=== PATIENT | male | born 1965 | race Caucasian/White ===

== ENCOUNTER 2016-04-30 15:44 | Inpatient (IN) | payer OTHER ==
[2016-04-30 17:09] VITALS: BMI 35.4
--- NOTE | 2016-04-30 20:01 | HP ---
COWS - Scale Resting Pulse: 2= NM 101-120 Sweatin= Chills/Flushing Restless Observation: 3= Extraneous Movement Pupil Size: 1= Pupils >than Normal Bone or Joint Aches: 2= Severe Diffuse Aches Runny Nose/ Eye Tearin= Nasal Congestion GI Upset > 30mins: 1= Stomach Cramp Tremor Observation: 2= Slight Tremor Visible Yawning Observation: 0= None Anxiety or Irritability: 2=Irritable/Anxious Goose Flesh Skin: 0=Smooth Skin COWS Score: 15 Admission ROS S - HPI Chief Complaint: withdrawal sx Allergies/Adverse Reactions: Allergies Allergy/AdvReac Type Severity Reaction Status Date / Time No Known Allergies Allergy Verified 04/30/16 19:06 History of Present Illness: 51 years old male with long history of opiate dependence, has chronic back pain , denies mental illness is admitted to detox Exam Limitations: No Limitations - Ebola screening Have you traveled outside of the country in the last 21 days: No Have you had contact with anyone from an Ebola affected area: No Have you been sick,other than usual withdrawal symptoms: No Do you have a fever: No - Review of Systems Constitutional: Chills, Changes in sleep, Weight Stable EENT: reports: Other (eye glasses) Respiratory: reports: No Symptoms reported Cardiac: reports: No Symptoms Reported GI: reports: Diarrhea, Nausea, Poor Fluid Intake, Indigestion, Abdominal cramping : reports: No Symptoms Reported Musculoskeletal: reports: Back Pain, Joint Pain, Muscle Pain Integumentary: reports: No Symptoms Reported Neuro: reports: Tremors Endocrine: reports: No Symptoms Reported Hematology: reports: No Symptoms Reported Psychiatric: reports: Judgement Intact, Mood/Affect Appropiate, Orientated x3 Other Systems: Reviewed and Negative Patient History - Patient Medical History Hx Anemia: No Hx Asthma: No Hx Chronic Obstructive Pulmonary Disease (COPD): No Hx Cancer: No Hx Cardiac Disorders: No Hx Congestive Heart Failure: No Hx Hypertension: No Hx Hypercholesterolemia: No Hx Pacemaker: No HX Cerebrovascular Accident: No Hx Seizures: No Hx Dementia: No Hx Diabetes: No Hx Gastrointestinal Disorders: No Hx Liver Disease: No Hx Genitourinary Disorders: No Hx Sexually Transmitted Disorders: No Hx Renal Disease (ESRD): No Hx Thyroid Disease: No Hx Human Immunodeficiency Virus (HIV): No Hx Hepatitis C: No Hx Depression: No Hx Suicide Attempt: No Hx Bipolar Disorder: No Hx Schizophrenia: No - Patient Surgical History Past Surgical History: No Hx Neurologic Surgery: No Hx Cataract Extraction: No Hx Cardiac Surgery: No Hx Lung Surgery: No Hx Breast Surgery: No Hx Breast Biopsy: No Hx Abdominal Surgery: No Hx Appendectomy: No Hx Cholecystectomy: No Hx Genitourinary Surgery: No Hx Orthopedic Surgery: No - PPD History Previous Implant?: Yes Documented Results: Negative w/o proof Implanted On Prior [facility] Admission?: No PPD to be Administered?: Yes - Smoking Cessation Smoking history: Never smoked Aproximately how many cigarettes per day: 0 Cigars Per Day: 0 Hx Chewing Tobacco Use: No Initiated information on smoking cessation: No - Substance & Tx. History Hx Alcohol Use: No Hx Substance Use: Yes Substance Use Type: Heroin, Opiates Hx Substance Use Treatment: Yes - Substances Abused Heroin Route: Inhalation Frequency: Daily Amount used: 20 Age of first use: 17 Date of Last Use: 04/30/16 Alprazolam (Xanax) Route: Oral Frequency: 1-3 times last 30 days Amount used: 2 mg Age of first use: 50 Date of Last Use: 04/29/16 Family Disease History - Family Disease History Family Disease History: Diabetes: Brother, Heart Disease: Brother, [place]: Father ( lymphoma/), Mother (breast/) Admission Physical Exam S - Vital Signs Vital Signs: Vital Signs - 24 hr 04/30/16 17:07 Temperature 95.3 F L Pulse Rate 102 H Respiratory 20 Rate Blood Pressure 152/92 - Physical General Appearance: Yes: Appropriately Dressed, Mild Distress, Moderate Distress , Obese, Tremorous, Irritable, Sweating, Anxious HEENTM: Yes: Hearing grossly Normal, Normal ENT Inspection, Normocephalic, Normal Voice Respiratory: Yes: Chest Non-Tender, Lungs Clear, Normal Breath Sounds, No Respiratory Distress, No Accessory Muscle Use Neck: Yes: Supple, Trachea in good position Breast: Yes: Breasts Symetrical Cardiology: Yes: Regular Rhythm, Regular Rate, S1, S2 Abdominal: Yes: Non Tender, Soft Genitourinary: Yes: Within Normal Limits Back: Yes: Normal Inspection Musculoskeletal: Yes: full range of Motion, Gait Steady, Back pain, Muscle Pain (left legs) Extremities: Yes: Normal Range of Motion, Non-Tender, Tremors 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: Yes: Fully Oriented, Alert, Motor Strength 5/5, Normal Mood/Affect , Normal Response Integumentary: Yes: Warm Lymphatic: Yes: Within Normal Limits - Diagnostic (1) Opioid dependence with withdrawal Current Visit: Yes Status: Acute (2) Chronic back pain Current Visit: Yes Status: Chronic Qualifiers: Back pain location: low back pain Back pain laterality: left Sciatica presence: with sciatica Sciatica laterality: sciatica of left side Qualified Code(s): M54.42 - Lumbago with sciatica, left side; G89.29 - Other chronic pain (3) GERD (gastroesophageal reflux disease) Current Visit: Yes Status: Acute Qualifiers: Esophagitis presence: without esophagitis Qualified Code(s): K21.9 - Gastro-esophageal reflux disease without esophagitis Cleared for Admission S - Detox or Rehab [facility] Level of Care: Medically Managed Detox Regimen/Protocol: Methadone [facility] Breath Alcohol Content Breath Alcohol Content: 0 Urine Drug Screen - Results Drug Screen Negative: No Urine Drug Screen Results: OPI-Opiates, BZO-Benzodiazepines, MTD-Methadone, TCA- Tricyclic Antidepress, OXY-Oxycodone
[2016-04-30] MEDS ORDERED: METHADONE HCL 10 MG TABLET (FOR DETOX USE ONLY) PO ONE ×2 (20:09→23:00)
[2016-04-30] MEDS ORDERED: MAGNESIUM CITRATE 300 ML BOTTLE PO PRN (20:09)
[2016-04-30] MEDS ORDERED: MENTHOL/PHENOL 1 EACH UD MM PRN (20:09)
[2016-04-30] MEDS ORDERED: MAGNESIUM HYDROX 2400MG/30ML ORAL SUSPENSION 30 ML CUP PO PRN (20:09)
[2016-04-30] MEDS ORDERED: MAG HYDROX/AL HYDROX/SIMETH 30 ML UNIT-DOSE CUP PO PRN (20:09)
[2016-04-30] MEDS ORDERED: LOPERAMIDE HCL 2 MG CAPSULE PO PRN (20:09)
[2016-04-30] MEDS ORDERED: guaiFENesin/D-METHORPHAN HB 10 ML UNIT-DOSE CUPS PO PRN (20:09)
[2016-04-30] MEDS ORDERED: ACETAMINOPHEN 325 MG TABLET (FP) PO PRN (20:09)
[2016-04-30] MEDS ORDERED: cloNIDine HCL 0.1 MG TABLET PO PRN (20:16)
[2016-04-30] MEDS: diazePAM 5 MG TABLET PO PRN (21:03)
[2016-04-30] MEDS: RANITIDINE HCL 150 MG TABLET (FP) PO SCH (22:16)
[2016-04-30] MEDS: GABAPENTIN 400 MG CAPSULE (FP) PO SCH (22:16)
[2016-04-30] MEDS: diphenhydrAMINE HCL 50 MG CAPSULE PO PRN (22:16)
[2016-04-30] MEDS: THIAMINE HCL 100 MG TABLET (FP) PO SCH (22:16)
[2016-04-30 22:31] LABS: URINE APPEARANCE CLEAR; URINE BILIRUBIN NEGATIVE (NEGATIVE); URINE COLOR DKYELLOW; URINE GLUCOSE (UA) NEGATIVE (NEGATIVE); URINE KETONE NEGATIVE (NEGATIVE); URINE LEUK ESTERASE NEGATIVE (NEGATIVE); URINE NITRITE NEGATIVE (NEGATIVE); URINE PROTEIN NEGATIVE (NEGATIVE); URINE UROBILINOGEN NEGATIVE E.U./dl (0.2-1.0)
[2016-04-30 22:32] LABS: URINE BLOOD 1+ (NEGATIVE)
[2016-04-30 22:36] LABS: URINE HYALINE CAST 3 /lpf; URINE MUCUS FEW; URINE RBC 22 /hpf (0-3); URINE WBC 5 /hpf (3-5)
[2016-05-01] MEDS: diphenhydrAMINE HCL 50 MG CAPSULE PO PRN (00:49)
[2016-05-01] MEDS: diazePAM 5 MG TABLET PO PRN ×5 (01:23→22:28)
[2016-05-01] MEDS: CYCLOBENZAPRINE HCL 10 MG TABLET (FP) PO PRN (01:23)
[2016-05-01] MEDS: GABAPENTIN 400 MG CAPSULE (FP) PO SCH ×3 (05:12→22:26)
[2016-05-01] MEDS ORDERED: METHADONE HCL 10 MG TABLET (FOR DETOX USE ONLY) PO ONE (10:00)
[2016-05-01] MEDS: PRENATAL VITAMINS W/ FOLIC ACID TABLET (FP) PO SCH (10:13)
[2016-05-01] MEDS: RANITIDINE HCL 150 MG TABLET (FP) PO SCH ×2 (10:13→22:26)
[2016-05-01 10:31] LABS: MCH 29.4 pg (25.7-33.7); MCHC 33.8 g/dl (32.0-35.9); MEAN CELL VOLUME 86.9 fl (80-96); MEAN PLT VOLUME 8.4 fl (7.5-11.1); PLATELET COUNT 262 K/MM3 (134-434); RDW 14.2 % (11.9-15.9); WHITE BLOOD COUNT 10.7 K/mm3 (4.0-10.0)
[2016-05-01 10:38] LABS: ALBUMIN 3.5 g/dl (3.4-5.0); ANION GAP 9 (8-16); BILIRUBIN,TOTAL 0.4 mg/dL (0.2-1.0); CALCIUM 8.6 mg/dL (8.5-10.1); CO2 28 mmol/L (21-32); CREATININE 0.9 mg/dL (0.7-1.3); GLUCOSE,RANDOM 74 mg/dL (74-106); SGOT/AST 13 U/L (15-37); SGPT/ALT 20 U/L (12-78); TOT PROT 6.7 g/dl (6.4-8.2)
[2016-05-01 10:39] LABS: ALK PHOS 84 U/L (45-117)
[2016-05-01] MEDS: P-EPHED 60MG/TRIPROLIDI 2.5MG TABLET PO PRN ×2 (10:42→22:41)
--- NOTE | 2016-05-01 13:23 | EKG ---
Test Reason : Blood Pressure : / mmHG Vent. Rate : 076 BPM Atrial Rate : 076 BPM P-R Int : 190 ms QRS Dur : 110 ms QT Int : 388 ms P-R-T Axes : 052 025 046 degrees QTc Int : 436 ms NORMAL SINUS RHYTHM POSSIBLE LEFT ATRIAL ENLARGEMENT BORDERLINE ECG NO PREVIOUS ECGS AVAILABLE Confirmed by MARYAN TAYLOR MD ([id number]) on 05/01/2016 1:23:11 PM Referred By: Confirmed By:MARYAN TAYLOR MD
--- NOTE | 2016-05-01 14:12 | PN ---
BHS COWS - Scale Resting Pulse: 0= MS 80 or Below Sweatin= Chills/Flushing Restless Observation: 1= Difficult to Sit Still Pupil Size: 0= Normal to Room Light Bone or Joint Aches: 2= Severe Diffuse Aches Runny Nose/ Eye Tearin= Runny Nose/Eyes GI Upset > 30mins: 2= Nausea/Diarrhea Tremor Observation of Outstretched Hands: 2= Slight Tremor Visible Yawning Observation: 1= 1-2x During Session Anxiety or Irritability: 2=Irritable/Anxious Goose Flesh Skin: 0=Smooth Skin COWS Score: 13 BHS Progress Note (SOAP) Subjective: Nausea, Interrupted sleep, Sweating, Tremors. Objective: PT. A & O X 3; OBSERVED AMBULATING ON UNIT. 05/01/16 14:10 Vital Signs Temperature 97 F L 05/01/16 11:01 Pulse Rate 79 05/01/16 11:01 Respiratory Rate 20 05/01/16 11:01 Blood Pressure 115/73 05/01/16 11:01 O2 Sat by Pulse Oximetry (%) Laboratory Last Values WBC 10.7 K/mm3 (4.0-10.0) H 05/01/16 07:15 RBC 4.89 M/mm3 (4.00-5.60) 05/01/16 07:15 Hgb 14.4 GM/dL (11.7-16.9) 05/01/16 07:15 Hct 42.5 % (35.4-49) 05/01/16 07:15 MCV 86.9 fl (80-96) 05/01/16 07:15 MCHC 33.8 g/dl (32.0-35.9) 05/01/16 07:15 RDW 14.2 % (11.9-15.9) 05/01/16 07:15 Plt Count 262 K/MM3 (134-434) 05/01/16 07:15 MPV 8.4 fl (7.5-11.1) 05/01/16 07:15 Sodium 140 mmol/L (136-145) 05/01/16 07:15 Potassium 4.0 mmol/L (3.5-5.1) 05/01/16 07:15 Chloride 103 mmol/L (98-107) 05/01/16 07:15 Carbon Dioxide 28 mmol/L (21-32) 05/01/16 07:15 Anion Gap 9 (8-16) 05/01/16 07:15 BUN 21 mg/dL (7-18) H 05/01/16 07:15 Creatinine 0.9 mg/dL (0.7-1.3) 05/01/16 07:15 Creat Clearance w eGFR > 60 (>60) 05/01/16 07:15 Random Glucose 74 mg/dL (74-106) 05/01/16 07:15 Calcium 8.6 mg/dL (8.5-10.1) 05/01/16 07:15 Total Bilirubin 0.4 mg/dL (0.2-1.0) 05/01/16 07:15 AST 13 U/L (15-37) L 05/01/16 07:15 ALT 20 U/L (12-78) 05/01/16 07:15 Alkaline Phosphatase 84 U/L (45-117) 05/01/16 07:15 Total Protein 6.7 g/dl (6.4-8.2) 05/01/16 07:15 Albumin 3.5 g/dl (3.4-5.0) 05/01/16 07:15 Urine Color Dkyellow 04/30/16 22:00 Urine Appearance Clear 04/30/16 22:00 Urine pH 5.0 (5.0-8.0) 04/30/16 22:00 Ur Specific [place] 1.026 (1.001-1.035) 04/30/16 22:00 Urine Protein Negative (NEGATIVE) 04/30/16 22:00 Urine Glucose (UA) Negative (NEGATIVE) 04/30/16 22:00 Urine Ketones Negative (NEGATIVE) 04/30/16 22:00 Urine Blood 1+ (NEGATIVE) H 04/30/16 22:00 Urine Nitrite Negative (NEGATIVE) 04/30/16 22:00 Urine Bilirubin Negative (NEGATIVE) 04/30/16 22:00 Urine Urobilinogen Negative E.U./dl (0.2-1.0) 04/30/16 22:00 Ur Leukocyte Esterase Negative (NEGATIVE) 04/30/16 22:00 Urine RBC 22 /hpf (0-3) 04/30/16 22:00 Urine WBC 5 /hpf (3-5) 04/30/16 22:00 Hyaline Casts 3 /lpf 04/30/16 22:00 Urine Mucus Few 04/30/16 22:00 RPR Titer Nonreactive (NONREACTIVE) 05/01/16 07:15 LABS NOTED. Assessment: 05/01/16 14:11 WITHDRAWAL SYMPTOMS. Plan: CONTINUE DETOX. ADVISED PATIENT TO FOLLOW-UP WITH [facility] / REHAB MEDICAL PROIVDER AFTER DISCHARGE FROM DETOX FOR GENERAL MEDICAL ASSESSMENT AND FOR ABNORMAL LAB VALUES.
--- NOTE | 2016-05-01 15:05 | CONSULT ---
[facility] Psychiatric Consult - Data Date of interview: 05/01/16 Admission source: [facility] Identifying data: [place] [facility] [place] 51 y/o male seeking detox treatment on for opioid and benzodiazepine (xanax) dependence.Patient declines to cooperate for the psychiatric interview. Substance Abuse History: Urine Drug Screen Results: OPI-Opiates, BZO- Benzodiazepines, MTD-Methadone, TCA-Tricyclic Antidepressant, OXY- Oxycodone.Noted. - Smoking Cessation. Smoking history: Never smoked. Aproximately how many cigarettes per day: 0. Cigars Per Day: 0. Hx Chewing Tobacco Use: No. Initiated information on smoking cessation: No. - Substance & Tx. History. Hx Alcohol Use: No. Hx Substance Use: Yes. Substance Use Type : Heroin, Opiates. Hx Substance Use Treatment: Yes. - Substances Abused. Heroin. Route: Inhalation. Frequency: Daily. Amount used: 20. Age of first use: 17. Date of Last Use: 04/30/16. Alprazolam (Xanax). Route: Oral. Frequency: 1-3 times last 30 days. Amount used: 2 mg. Age of first use: 50. Date of Last Use: 04/29/16. Taken fro [facility] report.Patient declines to discuss his issues of substance abuse. Additional Comment: Psychiatric interview cannot be conducted.Mr Guerrero refuses to discuss his personal history (medical and behavioral)." I told them that I don't want to talk to a psychiatrist.Frankly I have no issue to talk about with a psychiatrist." Nursing staff is made aware.
[2016-05-01] MEDS: THIAMINE HCL 100 MG TABLET (FP) PO SCH (22:26)
[2016-05-02] MEDS: diazePAM 5 MG TABLET PO PRN ×4 (05:20→22:17)
[2016-05-02] MEDS: GABAPENTIN 400 MG CAPSULE (FP) PO SCH ×3 (05:20→22:17)
[2016-05-02] MEDS ORDERED: METHADONE HCL 5 MG TABLET (FOR DETOX USE ONLY) PO ONE (10:00)
--- NOTE | 2016-05-02 10:14 | PN ---
BHS COWS - Scale Resting Pulse: 0= SD 80 or Below Sweatin=Flushed/Facial Moisture Restless Observation: 1= Difficult to Sit Still Pupil Size: 0= Normal to Room Light Bone or Joint Aches: 2= Severe Diffuse Aches Runny Nose/ Eye Tearin= Runny Nose/Eyes GI Upset > 30mins: 2= Nausea/Diarrhea Tremor Observation of Outstretched Hands: 2= Slight Tremor Visible Yawning Observation: 1= 1-2x During Session Anxiety or Irritability: 2=Irritable/Anxious Goose Flesh Skin: 0=Smooth Skin COWS Score: 14 BHS Progress Note (SOAP) Subjective: Sweating,interrupted sleep,anxiety,interrupted sleep,restless. Objective: 05/02/16 10:13 Vital Signs - 8 hr 05/02/16 05/02/16 03:30 06:18 Temperature 96.6 F L Pulse Rate 71 Respiratory 20 20 Rate Blood Pressure 133/87 Laboratory Tests 04/30/16 05/01/16 05/01/16 22:00 07:15 07:15 WBC 10.7 H RBC 4.89 Hgb 14.4 Hct 42.5 MCV 86.9 MCHC 33.8 RDW 14.2 Plt Count 262 MPV 8.4 Sodium 140 Potassium 4.0 Chloride 103 Carbon Dioxide 28 Anion Gap 9 BUN 21 H Creatinine 0.9 Creat Clearance w eGFR > 60 Random Glucose 74 Calcium 8.6 Total Bilirubin 0.4 AST 13 L ALT 20 Alkaline Phosphatase 84 Total Protein 6.7 Albumin 3.5 Urine Color Dkyellow Urine Appearance Clear Urine pH 5.0 Ur Specific [place] 1.026 Urine Protein Negative Urine Glucose (UA) Negative Urine Ketones Negative Urine Blood 1+ H Urine Nitrite Negative Urine Bilirubin Negative Urine Urobilinogen Negative Ur Leukocyte Esterase Negative Urine RBC 22 Urine WBC 5 Hyaline Casts 3 Urine Mucus Few RPR Titer 05/01/16 07:15 WBC RBC Hgb Hct MCV MCHC RDW Plt Count MPV Sodium Potassium Chloride Carbon Dioxide Anion Gap BUN Creatinine Creat Clearance w eGFR Random Glucose Calcium Total Bilirubin AST ALT Alkaline Phosphatase Total Protein Albumin Urine Color Urine Appearance Urine pH Ur Specific [place] Urine Protein Urine Glucose (UA) Urine Ketones Urine Blood Urine Nitrite Urine Bilirubin Urine Urobilinogen Ur Leukocyte Esterase Urine RBC Urine WBC Hyaline Casts Urine Mucus RPR Titer Nonreactive labs noted Assessment: 05/02/16 10:14 withdrawal sx. Plan: continue detox
[2016-05-02] MEDS: RANITIDINE HCL 150 MG TABLET (FP) PO SCH ×2 (10:26→22:17)
[2016-05-02] MEDS: PRENATAL VITAMINS W/ FOLIC ACID TABLET (FP) PO SCH (10:26)
[2016-05-02] MEDS: THIAMINE HCL 100 MG TABLET (FP) PO SCH (22:17)
[2016-05-02] MEDS: diphenhydrAMINE HCL 50 MG CAPSULE PO PRN (22:18)
[2016-05-03] MEDS: GABAPENTIN 400 MG CAPSULE (FP) PO SCH ×3 (05:04→22:10)
[2016-05-03] MEDS: diazePAM 5 MG TABLET PO PRN ×3 (05:05→17:33)
[2016-05-03] MEDS ORDERED: METHADONE HCL 5 MG TABLET (FOR DETOX USE ONLY) PO ONE (10:00)
[2016-05-03] MEDS: RANITIDINE HCL 150 MG TABLET (FP) PO SCH ×2 (10:18→22:10)
[2016-05-03] MEDS: PRENATAL VITAMINS W/ FOLIC ACID TABLET (FP) PO SCH (10:18)
--- NOTE | 2016-05-03 14:14 | PN ---
S Progress Note (SOAP) Subjective: Tremors, Anxious, Sweating, Interrupted sleep, Body Aches. Objective: PT. A & O X 3. 05/03/16 14:12 Vital Signs Temperature 95.8 F L 05/03/16 12:54 Pulse Rate 77 05/03/16 12:54 Respiratory Rate 18 05/03/16 12:54 Blood Pressure 129/96 05/03/16 12:54 O2 Sat by Pulse Oximetry (%) Laboratory Last Values WBC 10.7 K/mm3 (4.0-10.0) H 05/01/16 07:15 RBC 4.89 M/mm3 (4.00-5.60) 05/01/16 07:15 Hgb 14.4 GM/dL (11.7-16.9) 05/01/16 07:15 Hct 42.5 % (35.4-49) 05/01/16 07:15 MCV 86.9 fl (80-96) 05/01/16 07:15 MCHC 33.8 g/dl (32.0-35.9) 05/01/16 07:15 RDW 14.2 % (11.9-15.9) 05/01/16 07:15 Plt Count 262 K/MM3 (134-434) 05/01/16 07:15 MPV 8.4 fl (7.5-11.1) 05/01/16 07:15 Sodium 140 mmol/L (136-145) 05/01/16 07:15 Potassium 4.0 mmol/L (3.5-5.1) 05/01/16 07:15 Chloride 103 mmol/L (98-107) 05/01/16 07:15 Carbon Dioxide 28 mmol/L (21-32) 05/01/16 07:15 Anion Gap 9 (8-16) 05/01/16 07:15 BUN 21 mg/dL (7-18) H 05/01/16 07:15 Creatinine 0.9 mg/dL (0.7-1.3) 05/01/16 07:15 Creat Clearance w eGFR > 60 (>60) 05/01/16 07:15 Random Glucose 74 mg/dL (74-106) 05/01/16 07:15 Calcium 8.6 mg/dL (8.5-10.1) 05/01/16 07:15 Total Bilirubin 0.4 mg/dL (0.2-1.0) 05/01/16 07:15 AST 13 U/L (15-37) L 05/01/16 07:15 ALT 20 U/L (12-78) 05/01/16 07:15 Alkaline Phosphatase 84 U/L (45-117) 05/01/16 07:15 Total Protein 6.7 g/dl (6.4-8.2) 05/01/16 07:15 Albumin 3.5 g/dl (3.4-5.0) 05/01/16 07:15 Urine Color Dkyellow 04/30/16 22:00 Urine Appearance Clear 04/30/16 22:00 Urine pH 5.0 (5.0-8.0) 04/30/16 22:00 Ur Specific [place] 1.026 (1.001-1.035) 04/30/16 22:00 Urine Protein Negative (NEGATIVE) 04/30/16 22:00 Urine Glucose (UA) Negative (NEGATIVE) 04/30/16 22:00 Urine Ketones Negative (NEGATIVE) 04/30/16 22:00 Urine Blood 1+ (NEGATIVE) H 04/30/16 22:00 Urine Nitrite Negative (NEGATIVE) 04/30/16 22:00 Urine Bilirubin Negative (NEGATIVE) 04/30/16 22:00 Urine Urobilinogen Negative E.U./dl (0.2-1.0) 04/30/16 22:00 Ur Leukocyte Esterase Negative (NEGATIVE) 04/30/16 22:00 Urine RBC 22 /hpf (0-3) 04/30/16 22:00 Urine WBC 5 /hpf (3-5) 04/30/16 22:00 Hyaline Casts 3 /lpf 04/30/16 22:00 Urine Mucus Few 04/30/16 22:00 RPR Titer Nonreactive (NONREACTIVE) 05/01/16 07:15 LABS NOTED. Assessment: 05/03/16 14:13 WITHDRAWAL SYMPTOMS. Plan: CONTINUE DETOX. ADVISED PATIENT TO FOLLOW-UP WITH [facility] / REHAB MEDICAL PROVIDER AFTER DISCHARGE FROM DETOX FOR GENERAL MEDICAL ASSESSMENT AND FOR ABNORMAL LAB VALUES.
[2016-05-03] MEDS: P-EPHED 60MG/TRIPROLIDI 2.5MG TABLET PO PRN (22:10)
[2016-05-03] MEDS: THIAMINE HCL 100 MG TABLET (FP) PO SCH (22:10)
[2016-05-03] MEDS: diphenhydrAMINE HCL 50 MG CAPSULE PO PRN (22:10)
[2016-05-04] MEDS: GABAPENTIN 400 MG CAPSULE (FP) PO SCH ×3 (05:29→22:11)
[2016-05-04] MEDS ORDERED: METHADONE HCL 10 MG TABLET (FOR DETOX USE ONLY) PO ONE (10:00)
[2016-05-04] MEDS: PRENATAL VITAMINS W/ FOLIC ACID TABLET (FP) PO SCH (10:14)
[2016-05-04] MEDS: RANITIDINE HCL 150 MG TABLET (FP) PO SCH ×2 (10:14→22:11)
[2016-05-04] MEDS: CYCLOBENZAPRINE HCL 10 MG TABLET (FP) PO PRN (14:17)
--- NOTE | 2016-05-04 15:56 | PN ---
BHS Progress Note (SOAP) Subjective: Sweating,interrupted sleep,restless. Objective: 05/04/16 15:55 Vital Signs - 8 hr 05/04/16 05/04/16 10:11 14:10 Temperature 98.0 F 95.2 F L Pulse Rate 87 92 H Respiratory 20 20 Rate Blood Pressure 139/98 127/86 Laboratory Last Values WBC 10.7 K/mm3 (4.0-10.0) H 05/01/16 07:15 RBC 4.89 M/mm3 (4.00-5.60) 05/01/16 07:15 Hgb 14.4 GM/dL (11.7-16.9) 05/01/16 07:15 Hct 42.5 % (35.4-49) 05/01/16 07:15 MCV 86.9 fl (80-96) 05/01/16 07:15 MCHC 33.8 g/dl (32.0-35.9) 05/01/16 07:15 RDW 14.2 % (11.9-15.9) 05/01/16 07:15 Plt Count 262 K/MM3 (134-434) 05/01/16 07:15 MPV 8.4 fl (7.5-11.1) 05/01/16 07:15 Sodium 140 mmol/L (136-145) 05/01/16 07:15 Potassium 4.0 mmol/L (3.5-5.1) 05/01/16 07:15 Chloride 103 mmol/L (98-107) 05/01/16 07:15 Carbon Dioxide 28 mmol/L (21-32) 05/01/16 07:15 Anion Gap 9 (8-16) 05/01/16 07:15 BUN 21 mg/dL (7-18) H 05/01/16 07:15 Creatinine 0.9 mg/dL (0.7-1.3) 05/01/16 07:15 Creat Clearance w eGFR > 60 (>60) 05/01/16 07:15 Random Glucose 74 mg/dL (74-106) 05/01/16 07:15 Calcium 8.6 mg/dL (8.5-10.1) 05/01/16 07:15 Total Bilirubin 0.4 mg/dL (0.2-1.0) 05/01/16 07:15 AST 13 U/L (15-37) L 05/01/16 07:15 ALT 20 U/L (12-78) 05/01/16 07:15 Alkaline Phosphatase 84 U/L (45-117) 05/01/16 07:15 Total Protein 6.7 g/dl (6.4-8.2) 05/01/16 07:15 Albumin 3.5 g/dl (3.4-5.0) 05/01/16 07:15 Urine Color Dkyellow 04/30/16 22:00 Urine Appearance Clear 04/30/16 22:00 Urine pH 5.0 (5.0-8.0) 04/30/16 22:00 Ur Specific [place] 1.026 (1.001-1.035) 04/30/16 22:00 Urine Protein Negative (NEGATIVE) 04/30/16 22:00 Urine Glucose (UA) Negative (NEGATIVE) 04/30/16 22:00 Urine Ketones Negative (NEGATIVE) 04/30/16 22:00 Urine Blood 1+ (NEGATIVE) H 04/30/16 22:00 Urine Nitrite Negative (NEGATIVE) 04/30/16 22:00 Urine Bilirubin Negative (NEGATIVE) 04/30/16 22:00 Urine Urobilinogen Negative E.U./dl (0.2-1.0) 04/30/16 22:00 Ur Leukocyte Esterase Negative (NEGATIVE) 04/30/16 22:00 Urine RBC 22 /hpf (0-3) 04/30/16 22:00 Urine WBC 5 /hpf (3-5) 04/30/16 22:00 Hyaline Casts 3 /lpf 04/30/16 22:00 Urine Mucus Few 04/30/16 22:00 RPR Titer Nonreactive (NONREACTIVE) 05/01/16 07:15 labs noted Assessment: 05/04/16 15:56 Withdrawal sx. Plan: Continue detox
[2016-05-04] MEDS: THIAMINE HCL 100 MG TABLET (FP) PO SCH (22:11)
[2016-05-04] MEDS: P-EPHED 60MG/TRIPROLIDI 2.5MG TABLET PO PRN (22:12)
[2016-05-04] MEDS: diphenhydrAMINE HCL 50 MG CAPSULE PO PRN (22:12)
[2016-05-05] MEDS: GABAPENTIN 400 MG CAPSULE (FP) PO SCH (05:37)
[2016-05-05] MEDS ORDERED: METHADONE HCL 5 MG TABLET (FOR DETOX USE ONLY) PO ONE (06:00)
[2016-05-05 10:32] VITALS: BP 137/88; PULSE 90; TEMP 97.6
[2016-05-05] MEDS: RANITIDINE HCL 150 MG TABLET (FP) PO SCH (10:38)
[2016-05-05] MEDS: PRENATAL VITAMINS W/ FOLIC ACID TABLET (FP) PO SCH (10:38)
[2016-05-05] MEDS: CYCLOBENZAPRINE HCL 10 MG TABLET (FP) PO PRN (10:39)
--- NOTE | 2016-05-05 18:21 | DS ---
[facility] Detox Discharge Summary Admission Date: 04/30/16 Discharge Date: 05/05/16 - History Present History: Opioid Dependence Pertinent Past History: GERD - Physical Exam Results Vital Signs: Vital Signs Temperature 97.6 F 05/05/16 10:32 Pulse Rate 90 05/05/16 10:32 Respiratory Rate 20 05/05/16 10:32 Blood Pressure 137/88 05/05/16 10:32 O2 Sat by Pulse Oximetry (%) Pertinent Admission Physical Exam Findings: Withdrawal sx. Laboratory Last Values WBC 10.7 K/mm3 (4.0-10.0) H 05/01/16 07:15 RBC 4.89 M/mm3 (4.00-5.60) 05/01/16 07:15 Hgb 14.4 GM/dL (11.7-16.9) 05/01/16 07:15 Hct 42.5 % (35.4-49) 05/01/16 07:15 MCV 86.9 fl (80-96) 05/01/16 07:15 MCHC 33.8 g/dl (32.0-35.9) 05/01/16 07:15 RDW 14.2 % (11.9-15.9) 05/01/16 07:15 Plt Count 262 K/MM3 (134-434) 05/01/16 07:15 MPV 8.4 fl (7.5-11.1) 05/01/16 07:15 Sodium 140 mmol/L (136-145) 05/01/16 07:15 Potassium 4.0 mmol/L (3.5-5.1) 05/01/16 07:15 Chloride 103 mmol/L (98-107) 05/01/16 07:15 Carbon Dioxide 28 mmol/L (21-32) 05/01/16 07:15 Anion Gap 9 (8-16) 05/01/16 07:15 BUN 21 mg/dL (7-18) H 05/01/16 07:15 Creatinine 0.9 mg/dL (0.7-1.3) 05/01/16 07:15 Creat Clearance w eGFR > 60 (>60) 05/01/16 07:15 Random Glucose 74 mg/dL (74-106) 05/01/16 07:15 Calcium 8.6 mg/dL (8.5-10.1) 05/01/16 07:15 Total Bilirubin 0.4 mg/dL (0.2-1.0) 05/01/16 07:15 AST 13 U/L (15-37) L 05/01/16 07:15 ALT 20 U/L (12-78) 05/01/16 07:15 Alkaline Phosphatase 84 U/L (45-117) 05/01/16 07:15 Total Protein 6.7 g/dl (6.4-8.2) 05/01/16 07:15 Albumin 3.5 g/dl (3.4-5.0) 05/01/16 07:15 Urine Color Dkyellow 04/30/16 22:00 Urine Appearance Clear 04/30/16 22:00 Urine pH 5.0 (5.0-8.0) 04/30/16 22:00 Ur Specific [place] 1.026 (1.001-1.035) 04/30/16 22:00 Urine Protein Negative (NEGATIVE) 04/30/16 22:00 Urine Glucose (UA) Negative (NEGATIVE) 04/30/16 22:00 Urine Ketones Negative (NEGATIVE) 04/30/16 22:00 Urine Blood 1+ (NEGATIVE) H 04/30/16 22:00 Urine Nitrite Negative (NEGATIVE) 04/30/16 22:00 Urine Bilirubin Negative (NEGATIVE) 04/30/16 22:00 Urine Urobilinogen Negative E.U./dl (0.2-1.0) 04/30/16 22:00 Ur Leukocyte Esterase Negative (NEGATIVE) 04/30/16 22:00 Urine RBC 22 /hpf (0-3) 04/30/16 22:00 Urine WBC 5 /hpf (3-5) 04/30/16 22:00 Hyaline Casts 3 /lpf 04/30/16 22:00 Urine Mucus Few 04/30/16 22:00 RPR Titer Nonreactive (NONREACTIVE) 05/01/16 07:15 labs noted - Treatment Hospital Course: Detox Protocol Followed, Detoxed Safely, Responded well, Discharged Condition Good, Rehab Referral Accepted - Medication Discharge Medications: Ambulatory Orders Gabapentin [Neurontin -] 400 mg PO TID 04/30/16 Ibuprofen [Motrin -] 600 mg PO TID 04/30/16 - Diagnosis (1) Chronic back pain Status: Chronic Qualifiers: Back pain location: low back pain Back pain laterality: left Sciatica presence: with sciatica Sciatica laterality: sciatica of left side Qualified Code(s): M54.42 - Lumbago with sciatica, left side; G89.29 - Other chronic pain (2) GERD (gastroesophageal reflux disease) Status: Chronic Qualifiers: Esophagitis presence: without esophagitis Qualified Code(s): K21.9 - Gastro-esophageal reflux disease without esophagitis (3) Opioid dependence with withdrawal Status: Acute - AMA Did Patient Leave Against Medical Advice: No
== END 2016-05-05 12:30 | disposition other institution (70) | DRG 773 ==
LOC: YASAS 15:44 → Y3N 19:21
PROVIDERS: ADMIT Internal Medicine; ATTEND Internal Medicine
PROC: HZ2ZZZZ Detoxification Services for Substance Abuse Treatment (ICD-10-PCS; principal; 2016-04-30)
DX: F11.23 Opioid dependence with withdrawal (principal); K21.9 Gastro-esophageal reflux disease without esophagitis; M54.5 Low back pain; G89.29 Other chronic pain; E66.9 Obesity, unspecified; Z68.35 Body mass index [BMI] 35.0-35.9, adult
CPT/HCPCS: 36415; 80053; 81003; 81015; 85027; 86593; 93005; 93010

== ENCOUNTER 2016-05-05 12:36 | Inpatient (IN) | payer OTHER ==
[2016-05-05] MEDS ORDERED: MAG HYDROX/AL HYDROX/SIMETH 30 ML UNIT-DOSE CUP PO PRN (13:23)
[2016-05-05] MEDS ORDERED: LOPERAMIDE HCL 2 MG CAPSULE PO PRN (13:23)
[2016-05-05] MEDS ORDERED: MENTHOL/PHENOL 1 EACH UD MM PRN (13:23)
[2016-05-05] MEDS ORDERED: guaiFENesin/D-METHORPHAN HB 10 ML UNIT-DOSE CUPS PO PRN (13:23)
[2016-05-05] MEDS ORDERED: MAGNESIUM CITRATE 300 ML BOTTLE PO PRN (13:23)
[2016-05-05] MEDS ORDERED: P-EPHED 60MG/TRIPROLIDI 2.5MG TABLET PO PRN (13:23)
--- NOTE | 2016-05-05 14:13 | HP ---
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 Medical History: Significant for Obesity,Low back pain. Psychiatric History: denies Physical/Sexual Abuse/Trauma History: denies Vital Signs: Vital Signs - 24 hr 05/05/16 13:45 Temperature 97.8 F Pulse Rate 90 Respiratory 20 Rate Blood Pressure 123/87 Allergies/Adverse Reactions: Allergies Allergy/AdvReac Type Severity Reaction Status Date / Time No Known Allergies Allergy Verified 05/05/16 12:59 Date of last physical exam: 05/05/16 Concur with the findings of this exam: Yes - Substance Abuse/Tx History Hx Alcohol Use: Yes (socially) Hx Substance Use: Yes (heroin since 15 yo on and off,20 bags daily) Substance Use Type: Heroin Hx Substance Use Treatment: Yes (this is his first inpatient rehab treatment) - Admission Criteria Previous failed treatment: Yes Poor recovery environment: Yes Comorbidities: Yes Lacks judgement: Yes Mental Status Exam - Mental Status Exam Alert and Oriented to: Time, Place, Person Cognitive Function: Grossly Intact Patient Appearance: Well Groomed Mood: Euthymic Affect: Mood Congruent Patient Behavior: Cooperative Speech Pattern: Clear Voice Loudness: Normal Thought Process: Goal Oriented Thought Disorder: Not Present Hallucinations: Denies Suicidal Ideation: Denies Homicidal Ideation: Denies Insight/Judgement: Fair Sleep: Fair Appetite: Good Muscle strength/Tone: Normal Gait/Station: Normal Psychiatric Findings - Problem List ([place] 1, 2,3) (1) GERD (gastroesophageal reflux disease) Current Visit: Yes Status: Chronic Qualifiers: Esophagitis presence: without esophagitis Qualified Code(s): K21.9 - Gastro-esophageal reflux disease without esophagitis (2) Opioid dependence with withdrawal Current Visit: Yes Status: Chronic (3) Chronic back pain Current Visit: Yes Status: Chronic Qualifiers: Back pain location: low back pain Back pain laterality: left Sciatica presence: with sciatica Sciatica laterality: sciatica of left side Qualified Code(s): M54.42 - Lumbago with sciatica, left side; G89.29 - Other chronic pain - Initial Treatment Plan Initial Treatment Plan: Will monitor progress.
[2016-05-05] MEDS: IBUPROFEN 400 MG TABLET (FP) PO PRN (14:28)
[2016-05-05] MEDS: CYCLOBENZAPRINE HCL 10 MG TABLET (FP) PO PRN (14:28)
[2016-05-05] MEDS: GABAPENTIN 400 MG CAPSULE (FP) PO SCH ×2 (14:28→21:20)
--- NOTE | 2016-05-05 16:25 | HP ---
[facility] Rehab Assess/Revision - Admission History Admitted to Rehab from: [facility] Date of Admission to Rehab: 05/05/16 - Vital signs Vital Signs: Vital Signs Period Temp Pulse Resp BP Sys/Sheehan Pulse Ox Last 24 Hr 97.8 F 90 20 123/87 - Findings Detox History & Physical reviewed: Yes Concur with findings: Yes Comments/Additional Findings: transferred from detox to rehab admission as per protocol
[2016-05-05] MEDS: RANITIDINE HCL 150 MG TABLET (FP) PO SCH (21:20)
[2016-05-05] MEDS: THIAMINE HCL 100 MG TABLET (FP) PO SCH (21:20)
[2016-05-05] MEDS: diphenhydrAMINE HCL 50 MG CAPSULE PO PRN (21:20)
[2016-05-06] MEDS: GABAPENTIN 400 MG CAPSULE (FP) PO SCH ×3 (06:35→21:11)
[2016-05-06] MEDS: IBUPROFEN 400 MG TABLET (FP) PO PRN ×2 (06:37→14:16)
[2016-05-06] MEDS: RANITIDINE HCL 150 MG TABLET (FP) PO SCH ×2 (09:34→21:11)
[2016-05-06] MEDS: PRENATAL VITAMINS W/ FOLIC ACID TABLET (FP) PO SCH (09:34)
--- NOTE | 2016-05-06 12:18 | PN ---
Psychiatric Progress Note Vital Signs: Vital Signs Period Temp Pulse Resp BP Sys/Sheehan Pulse Ox Last 24 Hr 97.0 F-97.8 F 84-90 18-20 123-152/87-96 Date of Session: 05/06/16 Chief Complaint:: Insomnia HPI: Patient addressing Opoid Dependence ROS: Obesity, chronic back pain , GERD Current Medications: Active Medications Generic Name Dose Route Start Last Admin Trade Name Freq PRN Reason Stop Dose Admin Acetaminophen 650 mg 05/05/16 13:23 Tylenol - PO Q4H PRN FEVER OR PAIN Al Hydroxide/Mg Hydroxide 30 ml 05/05/16 13:23 Mylanta Oral Suspension - PO Q6H PRN DYSPEPSIA Cyclobenzaprine HCl 10 mg 05/05/16 13:24 05/05/16 14:28 Flexeril - PO 10 mg TID PRN Administration MUSCLE SPASMS Diphenhydramine HCl 50 mg 05/05/16 13:23 05/05/16 21:20 Benadryl - PO 50 mg HSMR1 PRN Administration FOR ITCHING Eucalyptus/Menthol/Phenol/Sorbitol 1 each 05/05/16 13:23 Cepastat Lozenge - MM Q4H PRN SORE THROAT Gabapentin 400 mg 05/05/16 14:00 05/06/16 06:35 Neurontin - PO 400 mg TID SUZAN Administration Guaifenesin 10 ml 05/05/16 13:23 Robitussin Dm - PO Q6H PRN COUGH Ibuprofen 400 mg 05/05/16 13:23 05/06/16 06:37 Motrin - PO 400 mg Q6H PRN Administration PAIN Loperamide HCl 4 mg 05/05/16 13:23 Imodium - PO Q6H PRN DIARRHEA Magnesium Citrate 300 ml 05/05/16 13:23 Citroma - PO 05/07/16 13:24 Q48H PRN CONSTIPATION Magnesium Hydroxide 30 ml 05/05/16 13:23 Milk Of Magnesia - PO DAILY PRN CONSTIPATION Multivit/Folic Acid/Iron 1 tab 05/06/16 10:00 05/06/16 09:34 Vitamins (Sjr) - PO 1 tab DAILY SUZAN Administration Pseudoephedrine/Triprolidine 1 combo 05/05/16 13:23 Actifed - PO TID PRN NASAL CONGESTION Ranitidine HCl 150 mg 05/05/16 22:00 05/06/16 09:34 Zantac - PO 150 mg BID SUZAN Administration Thiamine HCl 100 mg 05/05/16 22:00 05/05/16 21:20 Vitamin B1 - PO 100 mg HS SUZAN Administration Medication(s) Change(s): Start Seroquel 100 mg po HS Current Side Effect: No Lab tests ordered: Yes Lab tests reviewed: Yes Provider note:: Patient reports experiencing difficulty to sleep. 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 Claims the only thing that worked in the past is Seroquel. He used to take Seroquel 100 mg po HS. Though adverse-effects(Tardive Dyskenesia) of that medication was discussed with him fully, he insisted on being on it. Total face to face time:: 25 Mental Status Exam - Mental Status Exam Alert and Oriented to: Time, Place, Person Cognitive Function: Fair Patient Appearance: Well Groomed Mood: Hopeful, Euthymic Affect: Appropriate Patient Behavior: Cooperative Speech Pattern: Clear Voice Loudness: Normal Thought Process: Intact Thought Disorder: Not Present Hallucinations: Denies Suicidal Ideation: Denies Homicidal Ideation: Denies Insight/Judgement: Fair Sleep: Poorly Appetite: Good Muscle strength/Tone: Normal Gait/Station: Normal Psychiatric Treatment Plan - Problem List (1) Opioid dependence with withdrawal Current Visit: Yes (2) Substance-induced sleep disorder Current Visit: Yes (3) Chronic back pain Current Visit: Yes Qualifiers: Back pain location: low back pain Back pain laterality: left Sciatica presence: with sciatica Sciatica laterality: sciatica of left side Qualified Code(s): M54.42 - Lumbago with sciatica, left side; G89.29 - Other chronic pain (4) GERD (gastroesophageal reflux disease) Current Visit: Yes Qualifiers: Esophagitis presence: without esophagitis Qualified Code(s): K21.9 - Gastro-esophageal reflux disease without esophagitis (5) Obesity Current Visit: Yes Initial treatment plan: 1) Start Seroquel 100 mg po HS for insomnia. 2) Monitor progress
[2016-05-06] MEDS: CYCLOBENZAPRINE HCL 10 MG TABLET (FP) PO PRN (14:16)
[2016-05-06] MEDS: QUEtiapine FUMARATE 100 MG TABLET (FP) PO SCH (21:11)
[2016-05-06] MEDS: THIAMINE HCL 100 MG TABLET (FP) PO SCH (21:11)
[2016-05-07] MEDS: GABAPENTIN 400 MG CAPSULE (FP) PO SCH ×3 (06:04→21:35)
[2016-05-07] MEDS: RANITIDINE HCL 150 MG TABLET (FP) PO SCH ×2 (09:25→21:35)
[2016-05-07] MEDS: PRENATAL VITAMINS W/ FOLIC ACID TABLET (FP) PO SCH (09:25)
[2016-05-07] MEDS: CYCLOBENZAPRINE HCL 10 MG TABLET (FP) PO PRN ×2 (14:13→21:34)
[2016-05-07] MEDS: diphenhydrAMINE HCL 50 MG CAPSULE PO PRN (21:34)
[2016-05-07] MEDS: THIAMINE HCL 100 MG TABLET (FP) PO SCH (21:34)
[2016-05-07] MEDS: QUEtiapine FUMARATE 100 MG TABLET (FP) PO SCH (21:35)
[2016-05-08] MEDS: CYCLOBENZAPRINE HCL 10 MG TABLET (FP) PO PRN ×2 (04:13→21:23)
[2016-05-08] MEDS: GABAPENTIN 400 MG CAPSULE (FP) PO SCH ×3 (06:03→21:22)
[2016-05-08] MEDS ORDERED: hydrOXYzine PAMOATE 50 MG CAPSULE (FP) PO PRN (07:17)
[2016-05-08] MEDS: PRENATAL VITAMINS W/ FOLIC ACID TABLET (FP) PO SCH (10:11)
[2016-05-08] MEDS: RANITIDINE HCL 150 MG TABLET (FP) PO SCH ×2 (10:11→21:22)
--- NOTE | 2016-05-08 16:10 | PN ---
[facility] Progress Note Note: Psychiatry Attending's note : Asked to see this patient. Complaint :insomnia. Seroquel 100 mg/hs is not effective. Patient seen. He reports past history of good response to 200 mg/hs. No history of adverse events on seroquel. Plan : Seroquel 200 mg po hs.Ordered. Dr Moore's note :appreciated. Side effects/benefits discussed with the patient. Made aware of risk of sedation/falls,metabolic syndrome. Risk of NMS,EPS (dyskinesias,dystonias,akathisia) revisited. Patient agrees with this careplan.Discussed with nurse in charge.
[2016-05-08] MEDS: THIAMINE HCL 100 MG TABLET (FP) PO SCH (21:22)
[2016-05-08] MEDS: QUEtiapine FUMARATE 100 MG TABLET (FP) PO SCH (21:22)
[2016-05-09] MEDS: GABAPENTIN 400 MG CAPSULE (FP) PO SCH ×3 (06:10→21:06)
[2016-05-09] MEDS: RANITIDINE HCL 150 MG TABLET (FP) PO SCH ×2 (10:19→21:06)
[2016-05-09] MEDS: PRENATAL VITAMINS W/ FOLIC ACID TABLET (FP) PO SCH (10:19)
[2016-05-09] MEDS: MAGNESIUM HYDROX 2400MG/30ML ORAL SUSPENSION 30 ML CUP PO PRN (14:22)
[2016-05-09] MEDS: THIAMINE HCL 100 MG TABLET (FP) PO SCH (21:06)
[2016-05-09] MEDS: QUEtiapine FUMARATE 100 MG TABLET (FP) PO SCH (21:06)
[2016-05-10] MEDS: GABAPENTIN 400 MG CAPSULE (FP) PO SCH (06:08)
[2016-05-10] MEDS: RANITIDINE HCL 150 MG TABLET (FP) PO SCH ×2 (09:30→21:06)
[2016-05-10] MEDS: PRENATAL VITAMINS W/ FOLIC ACID TABLET (FP) PO SCH (09:30)
[2016-05-10] MEDS ORDERED: LIDOCAINE 5% TOPICAL PATCH TP ONE (12:45)
[2016-05-10] MEDS ORDERED: GABAPENTIN 400 MG CAPSULE (FP) PO SCH (14:00)
--- NOTE | 2016-05-10 14:06 | PN ---
Psychiatric Progress Note Vital Signs: Vital Signs Period Temp Pulse Resp BP Sys/Sheehan Pulse Ox Last 24 Hr 97.2 F 105 18-20 120/87 Date of Session: 05/10/16 Chief Complaint:: insomnia HPI: Patient is addressing opioid dependence comorbid opioid induced sleep disorder. ROS: Obesity, chronic back pain , GERD Current Medications: Active Medications Generic Name Dose Route Start Last Admin Trade Name Freq PRN Reason Stop Dose Admin Acetaminophen 650 mg 05/05/16 13:23 Tylenol - PO Q4H PRN FEVER OR PAIN Al Hydroxide/Mg Hydroxide 30 ml 05/05/16 13:23 Mylanta Oral Suspension - PO Q6H PRN DYSPEPSIA Cyclobenzaprine HCl 10 mg 05/05/16 13:24 05/08/16 21:23 Flexeril - PO 10 mg TID PRN Administration MUSCLE SPASMS Diphenhydramine HCl 50 mg 05/05/16 13:23 05/07/16 21:34 Benadryl - PO 50 mg HSMR1 PRN Administration FOR ITCHING Docusate Sodium 100 mg 05/10/16 14:00 Colace - PO TID SUZAN Eucalyptus/Menthol/Phenol/Sorbitol 1 each 05/05/16 13:23 Cepastat Lozenge - MM Q4H PRN SORE THROAT Gabapentin 600 mg 05/10/16 14:00 Neurontin - PO TID SUZAN Guaifenesin 10 ml 05/05/16 13:23 Robitussin Dm - PO Q6H PRN COUGH Hydroxyzine Pamoate 50 mg 05/08/16 07:17 Vistaril - PO Q6H PRN FOR ITCHING Ibuprofen 600 mg 05/10/16 12:33 Motrin - PO Q6H PRN PAIN Lidocaine 1 patch 05/11/16 10:00 Lidoderm Patch - TP DAILY [facility] Loperamide HCl 4 mg 05/05/16 13:23 Imodium - PO Q6H PRN DIARRHEA Magnesium Hydroxide 30 ml 05/05/16 13:23 05/09/16 14:22 Milk Of Magnesia - PO 30 ml DAILY PRN Administration CONSTIPATION Multivit/Folic Acid/Iron 1 tab 05/06/16 10:00 05/10/16 09:30 Vitamins (Sjr) - PO Not Given DAILY [facility] Pseudoephedrine/Triprolidine 1 combo 05/05/16 13:23 Actifed - PO TID PRN NASAL CONGESTION Quetiapine Fumarate 200 mg 05/08/16 22:00 05/09/16 21:06 Seroquel - PO 200 mg HS SUZAN Administration Ranitidine HCl 150 mg 05/05/16 22:00 05/10/16 09:30 Zantac - PO Not Given BID SUZAN Thiamine HCl 100 mg 05/05/16 22:00 05/09/16 21:06 Vitamin B1 - PO 100 mg HS SUZAN Administration Current Side Effect: No Lab tests ordered: No Lab tests reviewed: Yes Provider note:: Reviwed the chart, 's Jason and Adriana's notes appreciated, met with the patient who reports that he has a difficult time at nights, he is up all night despite of medication management, patient reports at one point he was up 14 days and had to be admitted to the hospital "because was not able to functioning". Patient reports he is a and completed rehabilitation at [facility], was on Trazodone, Seroquel, Vistaril "nothing helped me", he understands that insomnia is a result of consequences of his heroin use. Revewe medications with the patient, discussed indications and properties of Belsorma 10 mg, which will be available tomorrow and today will add Trazodone 50 mg, will decrease Seroquel 100 mg po hs,(patient reports it makes me drowsy but not sleepy), psychoeducations and emotional support provided , will continue to monitor progresss. Total face to face time:: 35 Mental Status Exam - Mental Status Exam Alert and Oriented to: Time, Place, Person Cognitive Function: Good Patient Appearance: Well Groomed Mood: Depressed, Sad Affect: Appropriate, Mood Congruent Patient Behavior: Appropriate, Cooperative Speech Pattern: Clear, Appropriate Voice Loudness: Normal Thought Process: Intact, Goal Oriented Thought Disorder: Not Present Hallucinations: Denies Suicidal Ideation: Denies Homicidal Ideation: Denies Insight/Judgement: Fair Sleep: Poorly, Difficulty falling asleep Appetite: Good Muscle strength/Tone: Normal Gait/Station: Normal Psychiatric Treatment Plan - Problem List (1) Substance-induced sleep disorder Current Visit: Yes (2) Obesity Current Visit: Yes (3) Chronic back pain Current Visit: Yes Qualifiers: Back pain location: low back pain Back pain laterality: left Sciatica presence: with sciatica Sciatica laterality: sciatica of left side Qualified Code(s): M54.42 - Lumbago with sciatica, left side; G89.29 - Other chronic pain (4) GERD (gastroesophageal reflux disease) Current Visit: Yes Qualifiers: Esophagitis presence: without esophagitis Qualified Code(s): K21.9 - Gastro-esophageal reflux disease without esophagitis (5) Opioid dependence Current Visit: Yes
[2016-05-10] MEDS: DOCUSATE SODIUM 100 MG CAPSULE (FP) PO SCH ×2 (14:20→21:06)
[2016-05-10] MEDS: CYCLOBENZAPRINE HCL 10 MG TABLET (FP) PO PRN (21:05)
[2016-05-10] MEDS: traZODone HCL 50 MG TABLET (FP) PO SCH (21:05)
[2016-05-10] MEDS: GABAPENTIN 300 MG CAPSULE (FP) PO SCH (21:06)
[2016-05-10] MEDS: THIAMINE HCL 100 MG TABLET (FP) PO SCH (21:06)
[2016-05-10] MEDS: QUEtiapine FUMARATE 100 MG TABLET (FP) PO SCH (21:06)
[2016-05-11] MEDS: GABAPENTIN 300 MG CAPSULE (FP) PO SCH ×3 (06:12→21:09)
[2016-05-11] MEDS: DOCUSATE SODIUM 100 MG CAPSULE (FP) PO SCH ×3 (06:12→21:09)
[2016-05-11] MEDS: RANITIDINE HCL 150 MG TABLET (FP) PO SCH ×2 (09:32→21:09)
[2016-05-11] MEDS: LIDOCAINE 5% TOPICAL PATCH TP SCH (09:32)
[2016-05-11] MEDS: PRENATAL VITAMINS W/ FOLIC ACID TABLET (FP) PO SCH (09:32)
[2016-05-11] MEDS: SUVOREXANT 5 MG TABLET PO PRN (21:08)
[2016-05-11] MEDS: CYCLOBENZAPRINE HCL 10 MG TABLET (FP) PO PRN (21:09)
[2016-05-11] MEDS: THIAMINE HCL 100 MG TABLET (FP) PO SCH (21:09)
[2016-05-11] MEDS: traZODone HCL 50 MG TABLET (FP) PO SCH (21:09)
[2016-05-11] MEDS: QUEtiapine FUMARATE 100 MG TABLET (FP) PO SCH (21:09)
[2016-05-12] MEDS: CYCLOBENZAPRINE HCL 10 MG TABLET (FP) PO PRN ×2 (03:08→21:13)
[2016-05-12] MEDS: DOCUSATE SODIUM 100 MG CAPSULE (FP) PO SCH ×3 (06:06→21:11)
[2016-05-12] MEDS: GABAPENTIN 300 MG CAPSULE (FP) PO SCH ×3 (06:06→21:11)
[2016-05-12] MEDS: RANITIDINE HCL 150 MG TABLET (FP) PO SCH ×2 (09:48→21:11)
[2016-05-12] MEDS: PRENATAL VITAMINS W/ FOLIC ACID TABLET (FP) PO SCH (09:49)
[2016-05-12] MEDS: LIDOCAINE 5% TOPICAL PATCH TP SCH (09:49)
[2016-05-12 10:06] LABS: URINE APPEARANCE CLEAR; URINE BILIRUBIN NEGATIVE (NEGATIVE); URINE BLOOD NEGATIVE (NEGATIVE); URINE COLOR LTYELLOW; URINE GLUCOSE (UA) NEGATIVE (NEGATIVE); URINE KETONE NEGATIVE (NEGATIVE); URINE LEUK ESTERASE NEGATIVE (NEGATIVE); URINE NITRITE NEGATIVE (NEGATIVE); URINE PROTEIN NEGATIVE (NEGATIVE); URINE UROBILINOGEN NEGATIVE E.U./dl (0.2-1.0)
[2016-05-12 14:14] LABS: BASOPHIL 0.9 % (0-2.0); CALCIUM 9.4 mg/dL (8.5-10.1); CREATININE 0.8 mg/dL (0.7-1.3); EOSINOPHIL 3.2 % (0-4.5); MCH 28.5 pg (25.7-33.7); MCHC 33.6 g/dl (32.0-35.9); MEAN CELL VOLUME 84.7 fl (80-96); MEAN PLT VOLUME 8.6 fl (7.5-11.1); NEUTROPHILS 69.1 % (42.8-82.8); PLATELET COUNT 239 K/MM3 (134-434); RDW 14.4 % (11.9-15.9); WHITE BLOOD COUNT 11.2 K/mm3 (4.0-10.0)
[2016-05-12] MEDS: IBUPROFEN 600 MG TABLET (FP) PO PRN (14:23)
[2016-05-12] MEDS: traZODone HCL 50 MG TABLET (FP) PO SCH (21:11)
[2016-05-12] MEDS: THIAMINE HCL 100 MG TABLET (FP) PO SCH (21:11)
[2016-05-12] MEDS: QUEtiapine FUMARATE 100 MG TABLET (FP) PO SCH (21:11)
[2016-05-12] MEDS: SUVOREXANT 5 MG TABLET PO PRN (22:10)
[2016-05-13] MEDS: GABAPENTIN 300 MG CAPSULE (FP) PO SCH ×3 (06:10→21:02)
[2016-05-13] MEDS: DOCUSATE SODIUM 100 MG CAPSULE (FP) PO SCH ×3 (06:13→21:03)
[2016-05-13] MEDS: IBUPROFEN 600 MG TABLET (FP) PO PRN ×2 (06:14→14:04)
[2016-05-13] MEDS: MAGNESIUM HYDROX 2400MG/30ML ORAL SUSPENSION 30 ML CUP PO PRN (08:43)
[2016-05-13] MEDS: RANITIDINE HCL 150 MG TABLET (FP) PO SCH ×2 (09:47→21:03)
[2016-05-13] MEDS: PRENATAL VITAMINS W/ FOLIC ACID TABLET (FP) PO SCH (09:47)
[2016-05-13] MEDS: LIDOCAINE 5% TOPICAL PATCH TP SCH (09:48)
--- NOTE | 2016-05-13 15:01 | PN ---
Psychiatric Progress Note Vital Signs: Vital Signs Period Temp Pulse Resp BP Sys/Sheehan Pulse Ox Last 24 Hr 97.0 F 90 18-18 122/73 Date of Session: 05/13/16 Chief Complaint:: insomnia HPI: Patient is addressing opioid dependence comorbid opioid induced sleep disorder ROS: Obesity, chronic back pain , GERD medically managed. Current Medications: Active Medications Generic Name Dose Route Start Last Admin Trade Name Freq PRN Reason Stop Dose Admin Acetaminophen 650 mg 05/05/16 13:23 Tylenol - PO Q4H PRN FEVER OR PAIN Al Hydroxide/Mg Hydroxide 30 ml 05/05/16 13:23 Mylanta Oral Suspension - PO Q6H PRN DYSPEPSIA Cyclobenzaprine HCl 10 mg 05/05/16 13:24 05/12/16 21:13 Flexeril - PO 10 mg TID PRN Administration MUSCLE SPASMS Diphenhydramine HCl 50 mg 05/05/16 13:23 05/07/16 21:34 Benadryl - PO 50 mg HSMR1 PRN Administration FOR ITCHING Docusate Sodium 100 mg 05/10/16 14:00 05/13/16 14:16 Colace - PO Not Given TID SUZAN Eucalyptus/Menthol/Phenol/Sorbitol 1 each 05/05/16 13:23 Cepastat Lozenge - MM Q4H PRN SORE THROAT Gabapentin 600 mg 05/10/16 14:23 05/13/16 14:02 Neurontin - PO 600 mg TID SUZAN Administration Guaifenesin 10 ml 05/05/16 13:23 Robitussin Dm - PO Q6H PRN COUGH Hydroxyzine Pamoate 50 mg 05/08/16 07:17 05/12/16 03:08 Vistaril - PO 50 mg Q6H PRN Administration FOR ITCHING Ibuprofen 600 mg 05/10/16 12:33 05/13/16 14:04 Motrin - PO 600 mg Q6H PRN Administration PAIN Lidocaine 1 patch 05/11/16 10:00 05/13/16 09:48 Lidoderm Patch - TP 1 patch DAILY SUZAN Administration Loperamide HCl 4 mg 05/05/16 13:23 Imodium - PO Q6H PRN DIARRHEA Magnesium Hydroxide 30 ml 05/05/16 13:23 05/13/16 08:43 Milk Of Magnesia - PO 30 ml DAILY PRN Administration CONSTIPATION Multivit/Folic Acid/Iron 1 tab 05/06/16 10:00 05/13/16 09:47 Vitamins (Sjr) - PO 1 tab DAILY SUZAN Administration Pseudoephedrine/Triprolidine 1 combo 05/05/16 13:23 Actifed - PO TID PRN NASAL CONGESTION Quetiapine Fumarate 100 mg 05/10/16 22:00 05/12/16 21:11 Seroquel - PO 100 mg HS SUZAN Administration Ranitidine HCl 150 mg 05/05/16 22:00 05/13/16 09:47 Zantac - PO 150 mg BID SUZAN Administration Thiamine HCl 100 mg 05/05/16 22:00 05/12/16 21:11 Vitamin B1 - PO 100 mg HS SUZAN Administration Trazodone HCl 50 mg 05/10/16 22:00 05/12/16 21:11 Desyrel - PO 50 mg HS SUZAN Administration Current Side Effect: No Lab tests ordered: No Lab tests reviewed: Yes Provider note:: Patient reports he was unable to sleep with Belsorma, reports that he needs "something to help me to sleep", sleeping hygiene discussed with the patient, he is somewhat manipulative and talking about to get benzo and also reports that he will leave that place. Discussed indications and properties of Elavil 50 mg po hs, patient agreed to try, will d/c Belsorma, Trazodone and Seroquel. Total face to face time:: 30 Mental Status Exam - Mental Status Exam Alert and Oriented to: Time, Place, Person Cognitive Function: Grossly Intact Patient Appearance: Well Groomed Mood: Anxious, Irritable Affect: Mood Congruent Patient Behavior: Appropriate, Cooperative Speech Pattern: Clear Thought Process: Goal Oriented Thought Disorder: Not Present Hallucinations: Denies Suicidal Ideation: Denies Homicidal Ideation: Denies Insight/Judgement: Fair Sleep: Poorly, Difficulty falling asleep Appetite: Fair Muscle strength/Tone: Normal Gait/Station: Normal Psychiatric Treatment Plan - Problem List (1) Substance-induced sleep disorder Current Visit: Yes (2) Obesity Current Visit: Yes (3) Chronic back pain Current Visit: Yes Qualifiers: Back pain location: low back pain Back pain laterality: left Sciatica presence: with sciatica Sciatica laterality: sciatica of left side Qualified Code(s): M54.42 - Lumbago with sciatica, left side; G89.29 - Other chronic pain (4) GERD (gastroesophageal reflux disease) Current Visit: Yes Qualifiers: Esophagitis presence: without esophagitis Qualified Code(s): K21.9 - Gastro-esophageal reflux disease without esophagitis (5) Opioid dependence Current Visit: Yes
[2016-05-13] MEDS: THIAMINE HCL 100 MG TABLET (FP) PO SCH (21:03)
[2016-05-13] MEDS ORDERED: AMITRIPTYLINE HCL 25 MG TABLET (FP) PO SCH (22:00)
[2016-05-14] MEDS: GABAPENTIN 300 MG CAPSULE (FP) PO SCH ×3 (05:13→21:12)
[2016-05-14] MEDS: DOCUSATE SODIUM 100 MG CAPSULE (FP) PO SCH ×3 (05:13→21:12)
[2016-05-14] MEDS: IBUPROFEN 600 MG TABLET (FP) PO PRN ×2 (05:14→16:50)
[2016-05-14] MEDS: RANITIDINE HCL 150 MG TABLET (FP) PO SCH ×2 (09:46→21:12)
[2016-05-14] MEDS: PRENATAL VITAMINS W/ FOLIC ACID TABLET (FP) PO SCH (09:46)
[2016-05-14] MEDS: LIDOCAINE 5% TOPICAL PATCH TP SCH (09:46)
--- NOTE | 2016-05-14 14:00 | PN ---
[facility] Progress Note Note: Patient was seen this am, continues to c/o insomnia, now requesting to d/c Elavil "was not effective" and go back to Seroquel, will change medication, continue to monitor maría=ogress.
[2016-05-14] MEDS: QUEtiapine FUMARATE 100 MG TABLET (FP) PO SCH (21:12)
[2016-05-14] MEDS: THIAMINE HCL 100 MG TABLET (FP) PO SCH (21:13)
[2016-05-14] MEDS: diphenhydrAMINE HCL 50 MG CAPSULE PO PRN (21:14)
[2016-05-15] MEDS: IBUPROFEN 600 MG TABLET (FP) PO PRN ×2 (04:10→14:05)
[2016-05-15] MEDS: DOCUSATE SODIUM 100 MG CAPSULE (FP) PO SCH ×3 (06:39→21:05)
[2016-05-15] MEDS: GABAPENTIN 300 MG CAPSULE (FP) PO SCH ×3 (06:39→21:05)
[2016-05-15] MEDS: LIDOCAINE 5% TOPICAL PATCH TP SCH (10:43)
[2016-05-15] MEDS: PRENATAL VITAMINS W/ FOLIC ACID TABLET (FP) PO SCH (10:43)
[2016-05-15] MEDS: RANITIDINE HCL 150 MG TABLET (FP) PO SCH ×2 (10:44→21:05)
[2016-05-15] MEDS: THIAMINE HCL 100 MG TABLET (FP) PO SCH (21:05)
[2016-05-15] MEDS: diphenhydrAMINE HCL 50 MG CAPSULE PO PRN (21:05)
[2016-05-15] MEDS: QUEtiapine FUMARATE 100 MG TABLET (FP) PO SCH (21:05)
[2016-05-16] MEDS: IBUPROFEN 600 MG TABLET (FP) PO PRN ×3 (06:00→21:08)
[2016-05-16] MEDS: GABAPENTIN 300 MG CAPSULE (FP) PO SCH ×3 (06:00→21:07)
[2016-05-16] MEDS: CYCLOBENZAPRINE HCL 10 MG TABLET (FP) PO PRN ×2 (06:00→21:07)
[2016-05-16] MEDS: DOCUSATE SODIUM 100 MG CAPSULE (FP) PO SCH ×3 (06:00→21:07)
[2016-05-16] MEDS: LIDOCAINE 5% TOPICAL PATCH TP SCH (10:32)
[2016-05-16] MEDS: PRENATAL VITAMINS W/ FOLIC ACID TABLET (FP) PO SCH (10:33)
[2016-05-16] MEDS: RANITIDINE HCL 150 MG TABLET (FP) PO SCH ×2 (10:34→21:07)
[2016-05-16] MEDS: THIAMINE HCL 100 MG TABLET (FP) PO SCH (21:07)
[2016-05-16] MEDS: QUEtiapine FUMARATE 100 MG TABLET (FP) PO SCH (21:07)
[2016-05-17] MEDS: GABAPENTIN 300 MG CAPSULE (FP) PO SCH (06:04)
[2016-05-17] MEDS: IBUPROFEN 600 MG TABLET (FP) PO PRN (06:04)
[2016-05-17] MEDS: DOCUSATE SODIUM 100 MG CAPSULE (FP) PO SCH ×3 (06:05→21:58)
[2016-05-17] MEDS: PRENATAL VITAMINS W/ FOLIC ACID TABLET (FP) PO SCH (10:25)
[2016-05-17] MEDS: LIDOCAINE 5% TOPICAL PATCH TP SCH (10:25)
[2016-05-17] MEDS: RANITIDINE HCL 150 MG TABLET (FP) PO SCH ×2 (10:25→21:58)
--- NOTE | 2016-05-17 12:33 | PN ---
[facility] Progress Note (SOAP) Subjective: leg pain radiating from buttock to ankle on Left Objective: 05/17/16 12:30 Vital Signs Temperature 96.0 F L 05/17/16 07:32 Pulse Rate 89 05/17/16 07:32 Respiratory Rate 20 05/17/16 07:32 Blood Pressure 131/90 05/17/16 07:32 O2 Sat by Pulse Oximetry (%) Laboratory Tests 05/12/16 05/12/16 05/12/16 07:00 09:50 09:50 WBC 11.2 H RBC 5.33 Hgb 15.2 Hct 45.2 MCV 84.7 MCHC 33.6 RDW 14.4 Plt Count 239 MPV 8.6 Neutrophils % 69.1 Lymphocytes % 19.8 Monocytes % 7.0 Eosinophils % 3.2 Basophils % 0.9 Sodium 139 Potassium 3.9 Chloride 100 Carbon Dioxide 25 Anion Gap 14 BUN 12 D Creatinine 0.8 Random Glucose 108 H D Calcium 9.4 Urine Color Ltyellow Urine Appearance Clear Urine pH 5.0 Ur Specific [place] 1.017 Urine Protein Negative Urine Glucose (UA) Negative Urine Ketones Negative Urine Blood Negative Urine Nitrite Negative Urine Bilirubin Negative Urine Urobilinogen Negative Ur Leukocyte Esterase Negative pt aox3 ambulating favoring left leg /slight limp Assessment: 05/17/16 12:30 h/o left sciatica -stated he was on lyrica before with better relief than neurontin Plan: d/c neurontin lyrica 75mg po bid motrin 800mg tid pt refused cane
[2016-05-17] MEDS: IBUPROFEN 400 MG TABLET (FP) PO PRN (14:15)
[2016-05-17] MEDS: ACETAMINOPHEN 325 MG TABLET (FP) PO PRN (19:46)
[2016-05-17] MEDS: QUEtiapine FUMARATE 100 MG TABLET (FP) PO SCH (21:58)
[2016-05-17] MEDS: THIAMINE HCL 100 MG TABLET (FP) PO SCH (21:58)
[2016-05-17] MEDS: PREGABALIN 75 MG CAPSULE PO SCH (22:01)
[2016-05-18] MEDS: IBUPROFEN 400 MG TABLET (FP) PO PRN ×2 (05:48→14:21)
[2016-05-18] MEDS: DOCUSATE SODIUM 100 MG CAPSULE (FP) PO SCH ×3 (05:48→21:17)
[2016-05-18] MEDS: LIDOCAINE 5% TOPICAL PATCH TP SCH (09:44)
[2016-05-18] MEDS: PREGABALIN 75 MG CAPSULE PO SCH ×2 (09:44→21:17)
[2016-05-18] MEDS: PRENATAL VITAMINS W/ FOLIC ACID TABLET (FP) PO SCH (09:44)
[2016-05-18] MEDS: RANITIDINE HCL 150 MG TABLET (FP) PO SCH ×2 (09:44→21:17)
[2016-05-18] MEDS: THIAMINE HCL 100 MG TABLET (FP) PO SCH (21:17)
[2016-05-18] MEDS: ACETAMINOPHEN 325 MG TABLET (FP) PO PRN (21:18)
[2016-05-18] MEDS: QUEtiapine FUMARATE 100 MG TABLET (FP) PO SCH (21:19)
[2016-05-19] MEDS: IBUPROFEN 400 MG TABLET (FP) PO PRN ×2 (03:20→21:07)
[2016-05-19] MEDS: DOCUSATE SODIUM 100 MG CAPSULE (FP) PO SCH ×3 (06:05→21:05)
[2016-05-19] MEDS: CYCLOBENZAPRINE HCL 10 MG TABLET (FP) PO PRN (06:05)
[2016-05-19] MEDS: LIDOCAINE 5% TOPICAL PATCH TP SCH (10:04)
[2016-05-19] MEDS: RANITIDINE HCL 150 MG TABLET (FP) PO SCH ×2 (10:04→21:06)
[2016-05-19] MEDS: PREGABALIN 75 MG CAPSULE PO SCH ×3 (10:04→21:06)
[2016-05-19] MEDS: PRENATAL VITAMINS W/ FOLIC ACID TABLET (FP) PO SCH (10:04)
[2016-05-19] MEDS: THIAMINE HCL 100 MG TABLET (FP) PO SCH (21:05)
[2016-05-19] MEDS: QUEtiapine FUMARATE 100 MG TABLET (FP) PO SCH (21:08)
[2016-05-20] MEDS: PREGABALIN 75 MG CAPSULE PO SCH ×3 (06:02→21:47)
[2016-05-20] MEDS: DOCUSATE SODIUM 100 MG CAPSULE (FP) PO SCH ×3 (06:02→21:46)
[2016-05-20] MEDS: IBUPROFEN 400 MG TABLET (FP) PO PRN ×2 (10:02→21:47)
[2016-05-20] MEDS: PRENATAL VITAMINS W/ FOLIC ACID TABLET (FP) PO SCH (10:02)
[2016-05-20] MEDS: LIDOCAINE 5% TOPICAL PATCH TP SCH (10:02)
[2016-05-20] MEDS: RANITIDINE HCL 150 MG TABLET (FP) PO SCH ×2 (10:02→21:46)
[2016-05-20] MEDS: THIAMINE HCL 100 MG TABLET (FP) PO SCH (21:46)
[2016-05-20] MEDS: QUEtiapine FUMARATE 100 MG TABLET (FP) PO SCH (21:47)
[2016-05-21] MEDS: PREGABALIN 75 MG CAPSULE PO SCH ×3 (06:01→21:25)
[2016-05-21] MEDS: DOCUSATE SODIUM 100 MG CAPSULE (FP) PO SCH ×3 (06:02→21:25)
[2016-05-21] MEDS: IBUPROFEN 400 MG TABLET (FP) PO PRN ×2 (06:03→16:37)
[2016-05-21] MEDS: PRENATAL VITAMINS W/ FOLIC ACID TABLET (FP) PO SCH (10:06)
[2016-05-21] MEDS: RANITIDINE HCL 150 MG TABLET (FP) PO SCH ×2 (10:06→21:25)
[2016-05-21] MEDS: LIDOCAINE 5% TOPICAL PATCH TP SCH (10:07)
--- NOTE | 2016-05-21 13:21 | PN ---
[facility] Progress Note Note: Patient approached this morning telling that he has not been sleeping for 15 days, asking to increase Seroquel and add Trazodone, he is obviously going through changes related to opioid withdrawal and having a hard time in this treatment, increased Seroquel and re-ordered Trazodone to help the patient.
[2016-05-21] MEDS: THIAMINE HCL 100 MG TABLET (FP) PO SCH (21:24)
[2016-05-21] MEDS: traZODone HCL 50 MG TABLET (FP) PO SCH (21:26)
[2016-05-21] MEDS: QUEtiapine FUMARATE 200 MG TABLET PO SCH (21:27)
[2016-05-22] MEDS: PREGABALIN 75 MG CAPSULE PO SCH ×3 (05:57→21:07)
[2016-05-22] MEDS: DOCUSATE SODIUM 100 MG CAPSULE (FP) PO SCH ×3 (05:57→21:07)
[2016-05-22] MEDS: IBUPROFEN 400 MG TABLET (FP) PO PRN ×2 (05:58→14:16)
[2016-05-22] MEDS: LIDOCAINE 5% TOPICAL PATCH TP SCH (10:37)
[2016-05-22] MEDS: RANITIDINE HCL 150 MG TABLET (FP) PO SCH ×2 (10:38→21:07)
[2016-05-22] MEDS: PRENATAL VITAMINS W/ FOLIC ACID TABLET (FP) PO SCH (10:38)
[2016-05-22] MEDS: CYCLOBENZAPRINE HCL 10 MG TABLET (FP) PO PRN (14:15)
[2016-05-22] MEDS: traZODone HCL 50 MG TABLET (FP) PO SCH (21:07)
[2016-05-22] MEDS: THIAMINE HCL 100 MG TABLET (FP) PO SCH (21:07)
[2016-05-22] MEDS: QUEtiapine FUMARATE 200 MG TABLET PO SCH (21:07)
[2016-05-23] MEDS: PREGABALIN 75 MG CAPSULE PO SCH ×3 (06:09→21:24)
[2016-05-23] MEDS: DOCUSATE SODIUM 100 MG CAPSULE (FP) PO SCH ×3 (06:09→21:22)
[2016-05-23] MEDS: IBUPROFEN 400 MG TABLET (FP) PO PRN ×2 (06:09→21:27)
[2016-05-23] MEDS: PRENATAL VITAMINS W/ FOLIC ACID TABLET (FP) PO SCH (10:31)
[2016-05-23] MEDS: RANITIDINE HCL 150 MG TABLET (FP) PO SCH ×2 (10:31→21:22)
[2016-05-23] MEDS: LIDOCAINE 5% TOPICAL PATCH TP SCH (10:31)
[2016-05-23] MEDS: THIAMINE HCL 100 MG TABLET (FP) PO SCH (21:22)
[2016-05-23] MEDS: traZODone HCL 50 MG TABLET (FP) PO SCH (21:23)
[2016-05-23] MEDS: QUEtiapine FUMARATE 200 MG TABLET PO SCH (21:24)
[2016-05-24] MEDS: PREGABALIN 75 MG CAPSULE PO SCH ×3 (05:59→21:13)
[2016-05-24] MEDS: DOCUSATE SODIUM 100 MG CAPSULE (FP) PO SCH ×3 (05:59→21:13)
[2016-05-24] MEDS: PRENATAL VITAMINS W/ FOLIC ACID TABLET (FP) PO SCH (09:50)
[2016-05-24] MEDS: RANITIDINE HCL 150 MG TABLET (FP) PO SCH ×2 (09:50→21:13)
[2016-05-24] MEDS: LIDOCAINE 5% TOPICAL PATCH TP SCH (09:51)
[2016-05-24] MEDS: IBUPROFEN 400 MG TABLET (FP) PO PRN (13:59)
--- NOTE | 2016-05-24 15:19 | PN ---
[facility] Progress Note Note: patient requested to decrease Seroquel to 100 mg po hs, reports he is sedated, will decrease med, continue to monitor progress.
[2016-05-24] MEDS: THIAMINE HCL 100 MG TABLET (FP) PO SCH (21:13)
[2016-05-24] MEDS: traZODone HCL 50 MG TABLET (FP) PO SCH (21:13)
[2016-05-24] MEDS: QUEtiapine FUMARATE 100 MG TABLET (FP) PO SCH (21:14)
[2016-05-25] MEDS: PREGABALIN 75 MG CAPSULE PO SCH ×3 (06:10→21:02)
[2016-05-25] MEDS: DOCUSATE SODIUM 100 MG CAPSULE (FP) PO SCH ×3 (06:10→21:02)
[2016-05-25] MEDS: IBUPROFEN 400 MG TABLET (FP) PO PRN ×2 (06:10→21:02)
[2016-05-25] MEDS: LIDOCAINE 5% TOPICAL PATCH TP SCH (09:30)
[2016-05-25] MEDS: RANITIDINE HCL 150 MG TABLET (FP) PO SCH ×2 (09:30→21:02)
[2016-05-25] MEDS: PRENATAL VITAMINS W/ FOLIC ACID TABLET (FP) PO SCH (09:30)
[2016-05-25] MEDS: THIAMINE HCL 100 MG TABLET (FP) PO SCH (21:01)
[2016-05-25] MEDS: QUEtiapine FUMARATE 100 MG TABLET (FP) PO SCH (21:02)
[2016-05-25] MEDS: traZODone HCL 50 MG TABLET (FP) PO SCH (21:02)
[2016-05-26] MEDS: DOCUSATE SODIUM 100 MG CAPSULE (FP) PO SCH ×3 (06:16→21:09)
[2016-05-26] MEDS: PREGABALIN 75 MG CAPSULE PO SCH ×3 (06:16→21:09)
[2016-05-26] MEDS: PRENATAL VITAMINS W/ FOLIC ACID TABLET (FP) PO SCH (10:03)
[2016-05-26] MEDS: LIDOCAINE 5% TOPICAL PATCH TP SCH (10:03)
[2016-05-26] MEDS: RANITIDINE HCL 150 MG TABLET (FP) PO SCH ×2 (10:03→21:09)
[2016-05-26] MEDS: IBUPROFEN 400 MG TABLET (FP) PO PRN (14:14)
[2016-05-26] MEDS: traZODone HCL 50 MG TABLET (FP) PO SCH (21:09)
[2016-05-26] MEDS: QUEtiapine FUMARATE 100 MG TABLET (FP) PO SCH (21:09)
[2016-05-26] MEDS: THIAMINE HCL 100 MG TABLET (FP) PO SCH (21:09)
[2016-05-27] MEDS: PREGABALIN 75 MG CAPSULE PO SCH (06:07)
[2016-05-27] MEDS: DOCUSATE SODIUM 100 MG CAPSULE (FP) PO SCH (06:07)
[2016-05-27] MEDS: IBUPROFEN 400 MG TABLET (FP) PO PRN (06:07)
[2016-05-27 07:16] VITALS: BP 129/77; PULSE 77; TEMP 96
[2016-05-27] MEDS: LIDOCAINE 5% TOPICAL PATCH TP SCH (09:51)
[2016-05-27] MEDS: RANITIDINE HCL 150 MG TABLET (FP) PO SCH (09:52)
[2016-05-27] MEDS: PRENATAL VITAMINS W/ FOLIC ACID TABLET (FP) PO SCH (09:52)
--- NOTE | 2016-05-27 10:40 | PN ---
Psychiatric Progress Note Vital Signs: Vital Signs Period Temp Pulse Resp BP Sys/Sheehan Pulse Ox Last 24 Hr 96.0 F 77 18-18 129/77 Date of Session: 05/27/16 Chief Complaint:: discharge visit HPI: Patient is addressing opioid dependence comorbid opioid induced sleep disorder. ROS: Obesity, chronic back pain , GERD medically managed Current Medications: Active Medications Generic Name Dose Route Start Last Admin Trade Name Freq PRN Reason Stop Dose Admin Acetaminophen 650 mg 05/05/16 13:23 05/18/16 21:18 Tylenol - PO 650 mg Q4H PRN Administration FEVER OR PAIN Al Hydroxide/Mg Hydroxide 30 ml 05/05/16 13:23 Mylanta Oral Suspension - PO Q6H PRN DYSPEPSIA Cyclobenzaprine HCl 10 mg 05/05/16 13:24 05/22/16 14:15 Flexeril - PO 10 mg TID PRN Administration MUSCLE SPASMS Diphenhydramine HCl 50 mg 05/05/16 13:23 05/15/16 21:05 Benadryl - PO 50 mg HSMR1 PRN Administration FOR ITCHING Docusate Sodium 100 mg 05/10/16 14:00 05/27/16 06:07 Colace - PO 100 mg TID USZAN Administration Eucalyptus/Menthol/Phenol/Sorbitol 1 each 05/05/16 13:23 Cepastat Lozenge - MM Q4H PRN SORE THROAT Guaifenesin 10 ml 05/05/16 13:23 Robitussin Dm - PO Q6H PRN COUGH Hydroxyzine Pamoate 50 mg 05/08/16 07:17 05/12/16 03:08 Vistaril - PO 50 mg Q6H PRN Administration FOR ITCHING Ibuprofen 800 mg 05/17/16 12:26 05/27/16 06:07 Motrin - PO 800 mg Q8H PRN Administration FEVER Lidocaine 1 patch 05/11/16 10:00 05/27/16 09:51 Lidoderm Patch - TP 1 patch DAILY SUZAN Administration Loperamide HCl 4 mg 05/05/16 13:23 Imodium - PO Q6H PRN DIARRHEA Magnesium Hydroxide 30 ml 05/05/16 13:23 05/13/16 08:43 Milk Of Magnesia - PO 30 ml DAILY PRN Administration CONSTIPATION Pregabalin 75 mg 05/26/16 22:00 05/27/16 06:07 Lyrica - PO 05/27/16 14:01 75 mg TID SUZAN Administration Multivit/Folic Acid/Iron 1 tab 05/06/16 10:00 05/27/16 09:52 Vitamins (Sjr) - PO 1 tab DAILY SUZAN Administration Pseudoephedrine/Triprolidine 1 combo 05/05/16 13:23 Actifed - PO TID PRN NASAL CONGESTION Quetiapine Fumarate 100 mg 05/24/16 22:00 05/26/16 21:09 Seroquel - PO 100 mg HS SUZAN Administration Ranitidine HCl 150 mg 05/05/16 22:00 05/27/16 09:52 Zantac - PO 150 mg BID SUZAN Administration Thiamine HCl 100 mg 05/05/16 22:00 05/26/16 21:09 Vitamin B1 - PO 100 mg HS SUZAN Administration Trazodone HCl 50 mg 05/21/16 22:00 05/26/16 21:09 Desyrel - PO 50 mg HS SUZAN Administration Current Side Effect: No Lab tests ordered: No Lab tests reviewed: Yes Provider note:: Patient has completed today this program and met his goals, will continue to address his issues at [facility] outpatient treatment program. PAtient verbalized his resolution to stay sober , continue his medications and adherent to every aspects of his treatment plan. Medications, well tolerated, patient reports he finaly sleeps better, scripts provided, patient was encouraged to utilize all supports available to prevent relapses, patient is stable for discharge today. Total face to face time:: 35 Mental Status Exam - Mental Status Exam Alert and Oriented to: Time, Place, Person Cognitive Function: Grossly Intact Patient Appearance: Well Groomed Mood: Hopeful Affect: Appropriate, Mood Congruent Patient Behavior: Appropriate, Cooperative Speech Pattern: Clear, Appropriate Voice Loudness: Normal Thought Process: Intact, Goal Oriented Thought Disorder: Not Present Hallucinations: None, Denies Suicidal Ideation: None, Denies Homicidal Ideation: None, Denies Insight/Judgement: Good Sleep: Fair Appetite: Good Muscle strength/Tone: Normal Gait/Station: Normal Psychiatric Treatment Plan - Problem List (1) Substance-induced sleep disorder Current Visit: Yes (2) Obesity Current Visit: Yes (3) Chronic back pain Current Visit: Yes Qualifiers: Back pain location: low back pain Back pain laterality: left Sciatica presence: with sciatica Sciatica laterality: sciatica of left side Qualified Code(s): M54.42 - Lumbago with sciatica, left side; G89.29 - Other chronic pain (4) GERD (gastroesophageal reflux disease) Current Visit: Yes Qualifiers: Esophagitis presence: without esophagitis Qualified Code(s): K21.9 - Gastro-esophageal reflux disease without esophagitis (5) Opioid dependence Current Visit: Yes
--- NOTE | 2016-06-01 16:19 | PN ---
S Progress Note Note: rx called in for neurontin 300mg tid #90 To [facility] - for this pt.
== END 2016-05-27 10:00 | disposition home or self-care (01) | DRG 772 ==
LOC: YASAS 12:36 → Y5N 12:38
PROVIDERS: ADMIT Psychiatry & Neurology Psychiatry; ATTEND Psychiatry & Neurology Psychiatry
PROC: HZ42ZZZ Group Counseling for Substance Abuse Treatment, Cognitive-Behavioral (ICD-10-PCS; principal; 2016-05-27)
DX: F11.23 Opioid dependence with withdrawal (principal); F19.282 Other psychoactive substance dependence with psychoactive substance-induced sleep disorder; K21.9 Gastro-esophageal reflux disease without esophagitis; M54.5 Low back pain; G89.29 Other chronic pain; E66.09 Other obesity due to excess calories; Z68.35 Body mass index [BMI] 35.0-35.9, adult
CPT/HCPCS: 36415; 80048; 81003; 85025

== ENCOUNTER 2016-09-01 09:55 | Inpatient (IN) | payer OTHER ==
[2016-09-01 10:18] VITALS: BMI 33.3
--- NOTE | 2016-09-01 12:07 | HP ---
COWS - Scale Resting Pulse: 2= [place] 101-120 Sweatin= Chills/Flushing Restless Observation: 3= Extraneous Movement Pupil Size: 2= Moderately Dilated Bone or Joint Aches: 4=Acute Joint/Muscle Pain Runny Nose/ Eye Tearin= Nasal Congestion GI Upset > 30mins: 1= Stomach Cramp Tremor Observation: 2= Slight Tremor Visible Yawning Observation: 1= 1-2x During Session Anxiety or Irritability: 2=Irritable/Anxious Goose Flesh Skin: 0=Smooth Skin COWS Score: 19 Admission ROS S - HPI Chief Complaint: DETOX TX FOR HEROIN DEPENDENCE Allergies/Adverse Reactions: Allergies Allergy/AdvReac Type Severity Reaction Status Date / Time No Known Allergies Allergy Verified 09/01/16 10:28 History of Present Illness: 51 Y/O MALE WITH A HX OF HEROIN DEPENDENCE SEEKING DETOX TX. PT HAS PREVIOUS TX EPISODE. Exam Limitations: No Limitations - Ebola screening Have you traveled outside of the country in the last 21 days: No Have you had contact with anyone from an Ebola affected area: No Have you been sick,other than usual withdrawal symptoms: No Do you have a fever: No - Review of Systems Constitutional: Chills, Night Sweats, Changes in sleep EENT: reports: Blurred Vision (WEARS GLASSES), Tearing, Nose Congestion, Dental Problems (CHIPPED TOOTH/TOOTHACHE) Respiratory: reports: No Symptoms reported Cardiac: reports: Lightheadedness GI: reports: Constipated, Diarrhea, Nausea, Vomiting, Abdominal cramping : reports: Dysuria Musculoskeletal: reports: Back Pain, Joint Pain, Muscle Pain Integumentary: reports: No Symptoms Reported Neuro: reports: Numbness, Tingling, Tremors (TWITCHINGS), Dizziness Endocrine: reports: No Symptoms Reported Hematology: reports: No Symptoms Reported Psychiatric: reports: Orientated x3, Agitated, Anxious Other Systems: Reviewed and Negative Patient History - Patient Medical History Hx Anemia: No Hx Asthma: No Hx Chronic Obstructive Pulmonary Disease (COPD): No Hx Cancer: No Hx Cardiac Disorders: No Hx Congestive Heart Failure: No Hx Hypertension: Yes (HX ELEVATED BP BUT NEVER DIAGNOSED OR TREATED; ?? WITHDRAWAL SX) Hx Hypercholesterolemia: Yes ("IT USED TO BE HIGH"- NO CURRENT MED) Hx Pacemaker: No HX Cerebrovascular Accident: No Hx Seizures: No Hx Dementia: No Hx Diabetes: No Hx Gastrointestinal Disorders: Yes (ACID REFLUX-ON ZANTAC) Hx Liver Disease: No Hx Genitourinary Disorders: No Hx Sexually Transmitted Disorders: No Hx Renal Disease (ESRD): No Hx Thyroid Disease: No Hx Human Immunodeficiency Virus (HIV): No (NEVER TESTED) Hx Hepatitis C: No Hx Depression: No (BUT HX SEVERE ANXIETY) Hx Suicide Attempt: No (DENIES) Hx Bipolar Disorder: No Hx Schizophrenia: No - Patient Surgical History Past Surgical History: No Hx Neurologic Surgery: No Hx Cataract Extraction: No Hx Cardiac Surgery: No Hx Lung Surgery: No Hx Breast Surgery: No Hx Breast Biopsy: No Hx Abdominal Surgery: No Hx Appendectomy: No Hx Cholecystectomy: No Hx Genitourinary Surgery: No Hx Orthopedic Surgery: No Anesthesia Reaction: No - PPD History Previous Implant?: Yes Documented Results: Negative w/proof Implanted On Prior [facility] Admission?: Yes Date: 05/02/16 Results: 0 mm PPD to be Administered?: No - Reproductive History Patient is a Female of Child Bearing Age (11 -55 yrs old): No (MALE) - Smoking Cessation Smoking history: Never smoked Aproximately how many cigarettes per day: 0 Cigars Per Day: 0 Hx Chewing Tobacco Use: No Initiated information on smoking cessation: No - Substance & Tx. History Hx Alcohol Use: No (DENIES) Hx Substance Use: Yes (HERIN) Substance Use Type: Heroin Hx Substance Use Treatment: Yes (LAST TX AT [facility] ) - Substances Abused Heroin Route: Inhalation Frequency: Daily Amount used: 20 bags Age of first use: 17 Date of Last Use: 09/01/16 Family Disease History - Family Disease History Family Disease History: Diabetes: Brother, Heart Disease: Brother, [place]: Father ( lymphoma/), Mother (breast/) Admission Physical Exam BHS - Vital Signs Vital Signs: Vital Signs - 24 hr 09/01/16 10:16 Temperature 97.8 F Pulse Rate 106 H Respiratory 18 Rate Blood Pressure 150/111 - Physical General Appearance: Yes: Moderate Distress, Obese, Irritable, Anxious HEENTM: Yes: EOMI, Normocephalic, ADALBERTO, Pharynx Normal Respiratory: Yes: Chest Non-Tender, Lungs Clear, Normal Breath Sounds, No Respiratory Distress Neck: Yes: Supple, Trachea in good position Breast: Yes: Breast Exam Deferred Cardiology: Yes: Regular Rhythm, Regular Rate, S1, S2 Abdominal: Yes: Normal Bowel Sounds, Non Tender, Soft Genitourinary: Yes: Other (N/C) Back: Yes: Within Normal Limits Musculoskeletal: Yes: full range of Motion, Gait Steady Extremities: Yes: Normal Range of Motion, Non-Tender 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: 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: 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, Fully Oriented, Alert Integumentary: Yes: Dry, Warm Lymphatic: Yes: Within Normal Limits - Diagnostic (1) Obesity Current Visit: Yes Status: Chronic (2) Chronic back pain Current Visit: Yes Status: Chronic Qualifiers: Back pain location: low back pain Back pain laterality: left Sciatica presence: with sciatica Sciatica laterality: sciatica of left side Qualified Code(s): M54.42 - Lumbago with sciatica, left side; G89.29 - Other chronic pain (3) GERD (gastroesophageal reflux disease) Current Visit: Yes Status: Chronic Qualifiers: Esophagitis presence: without esophagitis Qualified Code(s): K21.9 - Gastro-esophageal reflux disease without esophagitis (4) Opioid dependence with withdrawal Current Visit: Yes Status: Chronic Cleared for Admission [facility] - Detox or Rehab [facility] Level of Care: Medically Managed Detox Regimen/Protocol: Methadone [facility] Breath Alcohol Content Breath Alcohol Content: 0 Urine Drug Screen - Results Drug Screen Negative: No Urine Drug Screen Results: OPI-Opiates, MET-Methamphetamine, BZO-Benzodiazepines , MTD-Methadone, TCA-Tricyclic Antidepress
[2016-09-01] MEDS ORDERED: P-EPHED 60MG/TRIPROLIDI 2.5MG TABLET PO PRN (12:18)
[2016-09-01] MEDS ORDERED: MAGNESIUM CITRATE 300 ML BOTTLE PO PRN (12:18)
[2016-09-01] MEDS ORDERED: MAG HYDROX/AL HYDROX/SIMETH 30 ML UNIT-DOSE CUP PO PRN (12:18)
[2016-09-01] MEDS ORDERED: MAGNESIUM HYDROX 2400MG/30ML ORAL SUSPENSION 30 ML CUP PO PRN (12:18)
[2016-09-01] MEDS ORDERED: guaiFENesin/D-METHORPHAN HB 10 ML UNIT-DOSE CUPS PO PRN (12:18)
[2016-09-01] MEDS ORDERED: MENTHOL/PHENOL 1 EACH UD MM PRN (12:18)
[2016-09-01] MEDS ORDERED: LOPERAMIDE HCL 2 MG CAPSULE PO PRN (12:18)
[2016-09-01] MEDS ORDERED: cloNIDine HCL 0.1 MG TABLET PO ONE (12:29)
[2016-09-01] MEDS ORDERED: METHADONE HCL 10 MG TABLET (FOR DETOX USE ONLY) PO ONE ×2 (12:30→23:00)
[2016-09-01] MEDS: diazePAM 5 MG TABLET PO PRN ×3 (13:12→22:42)
--- NOTE | 2016-09-01 15:56 | CONSULT ---
[facility] Psychiatric Consult - Data Date of interview: 09/01/16 Admission source: [facility] Identifying data: This is one of the multiple admissions to inpatient detox for this 51 yo Yor[place] male,resides with ,employed admitted for Opioid dependence. Substance Abuse History: Reports using heroin since 17 yo,on and off. Medical History: Significant for GERD,Low back pain. Psychiatric History: Patient denies psychiatric history,but reports sleeping difficulties on and off.Reports being prescribed Seroquel,Ambien,Trazodone, Belsomra PRN for insomnia. Physical/Sexual Abuse/Trauma History: Patient reports using heroin (sniffing) since 15 years old,20 bags daily. Mental Status Exam - Mental Status Exam Alert and Oriented to: Time, Place, Person Cognitive Function: Grossly Intact Patient Appearance: Well Groomed Mood: Anxious Affect: Labile Patient Behavior: Restless, Cooperative Speech Pattern: Clear Voice Loudness: Normal Thought Process: Goal Oriented Thought Disorder: Not Present Hallucinations: Denies Suicidal Ideation: Denies Homicidal Ideation: Denies Insight/Judgement: Fair Sleep: Difficulty falling asleep Appetite: Good Muscle strength/Tone: Normal Gait/Station: Normal Psychiatric Findings - Problem List ([place] 1, 2,3) (1) Chronic back pain Status: Chronic Qualifiers: Back pain location: low back pain Back pain laterality: left Sciatica presence: with sciatica Sciatica laterality: sciatica of left side Qualified Code(s): M54.42 - Lumbago with sciatica, left side; G89.29 - Other chronic pain (2) GERD (gastroesophageal reflux disease) Status: Chronic Qualifiers: Esophagitis presence: without esophagitis Qualified Code(s): K21.9 - Gastro-esophageal reflux disease without esophagitis (3) Obesity Status: Chronic (4) Opioid dependence with withdrawal Status: Chronic (5) Substance-induced sleep disorder Status: Chronic - Initial Treatment Plan Initial Treatment Plan: Seroquel 150 mg po hs.
[2016-09-01 18:26] LABS: URINE APPEARANCE CLEAR; URINE BILIRUBIN NEGATIVE (NEGATIVE); URINE COLOR LTYELLOW; URINE GLUCOSE (UA) NEGATIVE (NEGATIVE); URINE KETONE NEGATIVE (NEGATIVE); URINE LEUK ESTERASE NEGATIVE (NEGATIVE); URINE NITRITE NEGATIVE (NEGATIVE); URINE PROTEIN NEGATIVE (NEGATIVE); URINE UROBILINOGEN NEGATIVE E.U./dl (0.2-1.0)
[2016-09-01 18:28] LABS: URINE BLOOD 1+ (NEGATIVE)
[2016-09-01 18:33] LABS: URINE HYALINE CAST 4 /lpf; URINE MUCUS RARE; URINE RBC 2 /hpf (0-3); URINE WBC 1 /hpf (3-5)
[2016-09-01] MEDS ORDERED: QUEtiapine FUMARATE 100 MG TABLET (FP) PO SCH (22:00)
[2016-09-01] MEDS: RANITIDINE HCL 150 MG TABLET (FP) PO SCH (22:42)
[2016-09-01] MEDS: DOCUSATE SODIUM 100 MG CAPSULE (FP) PO SCH (22:42)
[2016-09-01] MEDS: THIAMINE HCL 100 MG TABLET (FP) PO SCH (22:42)
[2016-09-01] MEDS: QUEtiapine FUMARATE 50 MG TABLET PO SCH (22:42)
[2016-09-01] MEDS: CYCLOBENZAPRINE HCL 10 MG TABLET (FP) PO PRN (22:42)
[2016-09-01] MEDS: cloNIDine HCL 0.1 MG TABLET PO SCH (22:42)
[2016-09-02] MEDS: diazePAM 5 MG TABLET PO PRN ×3 (06:38→22:37)
[2016-09-02] MEDS ORDERED: METHADONE HCL 10 MG TABLET (FOR DETOX USE ONLY) PO ONE (10:00)
[2016-09-02 10:10] LABS: MCH 28.9 pg (25.7-33.7); MCHC 33.2 g/dl (32.0-35.9); MEAN CELL VOLUME 87.1 fl (80-96); PLATELET COUNT 246 K/MM3 (134-434); RDW 13.8 % (11.9-15.9); WHITE BLOOD COUNT 12.4 K/mm3 (4.0-10.0)
[2016-09-02] MEDS: PRENATAL VITAMINS W/ FOLIC ACID TABLET (FP) PO SCH (10:18)
[2016-09-02] MEDS: RANITIDINE HCL 150 MG TABLET (FP) PO SCH ×2 (10:18→22:38)
[2016-09-02] MEDS: cloNIDine HCL 0.1 MG TABLET PO SCH ×2 (10:18→22:35)
[2016-09-02 11:03] LABS: ALBUMIN 4.1 g/dl (3.4-5.0); ALK PHOS 77 U/L (45-117); ANION GAP 11 (8-16); BILIRUBIN,TOTAL 0.9 mg/dL (0.2-1.0); CALCIUM 9.1 mg/dL (8.5-10.1); CO2 26 mmol/L (21-32); CREATININE 0.9 mg/dL (0.7-1.3); GLUCOSE,RANDOM 146 mg/dL (74-106); SGOT/AST 15 U/L (15-37); SGPT/ALT 27 U/L (12-78)
--- NOTE | 2016-09-02 13:11 | PN ---
S COWS - Scale Resting Pulse: 1= [place] 81-100 Sweatin=Flushed/Facial Moisture Restless Observation: 3= Extraneous Movement Pupil Size: 1= Pupils >than Normal Bone or Joint Aches: 2= Severe Diffuse Aches Runny Nose/ Eye Tearin= Runny Nose/Eyes GI Upset > 30mins: 2= Nausea/Diarrhea Tremor Observation of Outstretched Hands: 2= Slight Tremor Visible Yawning Observation: 1= 1-2x During Session Anxiety or Irritability: 2=Irritable/Anxious Goose Flesh Skin: 0=Smooth Skin COWS Score: 18 S Progress Note (SOAP) Subjective: ALERT,IRRITABLE,ANXIOUS,INTERRUPTED SLEEP,TREMOR,PAIN IN THE BODY AND BACK Objective: 09/02/16 13:08 Vital Signs Temperature 97 F L 09/02/16 09:38 Pulse Rate 87 09/02/16 09:38 Respiratory Rate 18 09/02/16 09:38 Blood Pressure 137/67 09/02/16 09:38 O2 Sat by Pulse Oximetry (%) EKG NSR,INVERTED T IN 3 NO CHEST PAIN,NO SOB,NO DIZZINESS 09/02/16 13:09 Laboratory Last Values WBC 12.4 K/mm3 (4.0-10.0) H 09/02/16 06:00 RBC 5.62 M/mm3 (4.00-5.60) H 09/02/16 06:00 Hgb 16.2 GM/dL (11.7-16.9) 09/02/16 06:00 Hct 48.9 % (35.4-49) 09/02/16 06:00 MCV 87.1 fl (80-96) 09/02/16 06:00 MCHC 33.2 g/dl (32.0-35.9) 09/02/16 06:00 RDW 13.8 % (11.9-15.9) 09/02/16 06:00 Plt Count 246 K/MM3 (134-434) 09/02/16 06:00 MPV 9.0 fl (7.5-11.1) 09/02/16 06:00 Sodium 136 mmol/L (136-145) 09/02/16 06:00 Potassium 4.4 mmol/L (3.5-5.1) 09/02/16 06:00 Chloride 99 mmol/L (98-107) 09/02/16 06:00 Carbon Dioxide 26 mmol/L (21-32) 09/02/16 06:00 Anion Gap 11 (8-16) 09/02/16 06:00 BUN 17 mg/dL (7-18) D 09/02/16 06:00 Creatinine 0.9 mg/dL (0.7-1.3) 09/02/16 06:00 Creat Clearance w eGFR > 60 (>60) 09/02/16 06:00 Random Glucose 146 mg/dL (74-106) H D 09/02/16 06:00 Calcium 9.1 mg/dL (8.5-10.1) 09/02/16 06:00 Total Bilirubin 0.9 mg/dL (0.2-1.0) D 09/02/16 06:00 AST 15 U/L (15-37) 09/02/16 06:00 ALT 27 U/L (12-78) D 09/02/16 06:00 Alkaline Phosphatase 77 U/L (45-117) 09/02/16 06:00 Total Protein 8.0 g/dl (6.4-8.2) 09/02/16 06:00 Albumin 4.1 g/dl (3.4-5.0) 09/02/16 06:00 Urine Color Ltyellow 09/01/16 14:00 Urine Appearance Clear 09/01/16 14:00 Urine pH 5.0 (5.0-8.0) 09/01/16 14:00 Ur Specific [place] 1.015 (1.005-1.025) 09/01/16 14:00 Urine Protein Negative (NEGATIVE) 09/01/16 14:00 Urine Glucose (UA) Negative (NEGATIVE) 09/01/16 14:00 Urine Ketones Negative (NEGATIVE) 09/01/16 14:00 Urine Blood 1+ (NEGATIVE) H 09/01/16 14:00 Urine Nitrite Negative (NEGATIVE) 09/01/16 14:00 Urine Bilirubin Negative (NEGATIVE) 09/01/16 14:00 Urine Urobilinogen Negative E.U./dl (0.2-1.0) 09/01/16 14:00 Ur Leukocyte Esterase Negative (NEGATIVE) 09/01/16 14:00 Urine RBC 2 /hpf (0-3) 09/01/16 14:00 Urine WBC 1 /hpf (3-5) 09/01/16 14:00 Hyaline Casts 4 /lpf 09/01/16 14:00 Urine Mucus Rare 09/01/16 14:00 RPR Titer Nonreactive (NONREACTIVE) 09/02/16 06:00 Assessment: 09/02/16 13:09 WITHDRAWAL SYMPTOM Plan: CONTINUE DETOX,CBC,FASTING GLUCOSE IN AM,INITIAL CBC WBC12,400,INITIAL GLUCOSE IS146
--- NOTE | 2016-09-02 15:53 | EKG ---
Test Reason : Blood Pressure : / mmHG Vent. Rate : 086 BPM Atrial Rate : 086 BPM P-R Int : 182 ms QRS Dur : 098 ms QT Int : 372 ms P-R-T Axes : 049 002 027 degrees QTc Int : 445 ms NORMAL SINUS RHYTHM POSSIBLE INFERIOR INFARCT , AGE UNDETERMINED ABNORMAL ECG WHEN COMPARED WITH ECG OF 30-APR-2016 21:13, NO SIGNIFICANT CHANGE WAS FOUND Confirmed by MANUEL GODFREY MD ([id number]) on 09/02/2016 3:53:22 PM Referred By: Xena Parikh Confirmed By:MANUEL GODFREY MD
[2016-09-02] MEDS: DOCUSATE SODIUM 100 MG CAPSULE (FP) PO SCH (22:35)
[2016-09-02] MEDS: QUEtiapine FUMARATE 50 MG TABLET PO SCH (22:35)
[2016-09-02] MEDS: THIAMINE HCL 100 MG TABLET (FP) PO SCH (22:35)
[2016-09-03] MEDS ORDERED: METHADONE HCL 5 MG TABLET (FOR DETOX USE ONLY) PO ONE (10:00)
[2016-09-03 10:05] LABS: MCH 29.1 pg (25.7-33.7); MCHC 33.5 g/dl (32.0-35.9); MEAN CELL VOLUME 86.8 fl (80-96); MEAN PLT VOLUME 8.5 fl (7.5-11.1); PLATELET COUNT 214 K/MM3 (134-434); RDW 13.9 % (11.9-15.9); WHITE BLOOD COUNT 9.4 K/mm3 (4.0-10.0)
[2016-09-03] MEDS: PRENATAL VITAMINS W/ FOLIC ACID TABLET (FP) PO SCH (10:54)
[2016-09-03] MEDS: cloNIDine HCL 0.1 MG TABLET PO SCH ×2 (10:54→21:33)
[2016-09-03] MEDS: RANITIDINE HCL 150 MG TABLET (FP) PO SCH ×2 (10:54→21:33)
[2016-09-03] MEDS: diazePAM 5 MG TABLET PO PRN ×3 (10:55→21:33)
--- NOTE | 2016-09-03 11:39 | PN ---
BHS COWS - Scale Resting Pulse: 1= [place] 81-100 Sweatin= Chills/Flushing Restless Observation: 3= Extraneous Movement Pupil Size: 1= Pupils >than Normal Bone or Joint Aches: 2= Severe Diffuse Aches Runny Nose/ Eye Tearin= Runny Nose/Eyes GI Upset > 30mins: 3= Vomiting/Diarrhea Tremor Observation of Outstretched Hands: 2= Slight Tremor Visible Yawning Observation: 2= >3x During Session Anxiety or Irritability: 2=Irritable/Anxious Goose Flesh Skin: 0=Smooth Skin COWS Score: 19 BHS Progress Note (SOAP) Subjective: ALERT,IRRITABLE,ANXIOUS,INTERRUPTED SLEEP,TREMOR,PAIN IN THE BODY AND BACK Objective: 09/03/16 11:37 Vital Signs Temperature 98.4 F 09/03/16 10:00 Pulse Rate 96 H 09/03/16 10:00 Respiratory Rate 18 09/03/16 10:00 Blood Pressure 124/70 09/03/16 10:00 O2 Sat by Pulse Oximetry (%) Laboratory Results - last 24 hr 09/02/16 09/03/16 09/03/16 06:00 07:00 07:00 WBC 9.4 RBC 5.08 Hgb 14.8 Hct 44.1 MCV 86.8 MCHC 33.5 RDW 13.9 Plt Count 214 MPV 8.5 Fasting Glucose 75 RPR Titer Nonreactive Assessment: 09/03/16 11:38 WITHDRAWAL SYMPTOM Plan: CONTINUE DETOX
[2016-09-03] MEDS: IBUPROFEN 400 MG TABLET (FP) PO PRN (20:13)
[2016-09-03] MEDS: CYCLOBENZAPRINE HCL 10 MG TABLET (FP) PO PRN (21:33)
[2016-09-03] MEDS: QUEtiapine FUMARATE 50 MG TABLET PO SCH (21:33)
[2016-09-03] MEDS: THIAMINE HCL 100 MG TABLET (FP) PO SCH (21:33)
[2016-09-03] MEDS: DOCUSATE SODIUM 100 MG CAPSULE (FP) PO SCH (21:33)
[2016-09-04] MEDS: diazePAM 5 MG TABLET PO PRN ×2 (07:55→12:09)
[2016-09-04] MEDS: IBUPROFEN 400 MG TABLET (FP) PO PRN ×2 (07:56→16:30)
[2016-09-04] MEDS ORDERED: METHADONE HCL 5 MG TABLET (FOR DETOX USE ONLY) PO ONE (10:00)
[2016-09-04] MEDS: PRENATAL VITAMINS W/ FOLIC ACID TABLET (FP) PO SCH (10:41)
[2016-09-04] MEDS: cloNIDine HCL 0.1 MG TABLET PO SCH ×2 (10:41→21:48)
[2016-09-04] MEDS: RANITIDINE HCL 150 MG TABLET (FP) PO SCH ×2 (10:41→21:48)
--- NOTE | 2016-09-04 11:06 | PN ---
BHS Progress Note (SOAP) Subjective: ALERT,IRRITABLE,ANXIOUS,INTERRUPTED SLEEP,PAIN IN THE BODY Objective: 09/04/16 11:05 Vital Signs Temperature 97 F L 09/04/16 10:16 Pulse Rate 90 09/04/16 10:16 Respiratory Rate 18 09/04/16 10:16 Blood Pressure 120/87 09/04/16 10:16 O2 Sat by Pulse Oximetry (%) Assessment: 09/04/16 11:05 WITHDRAWAL SYMPTOM Plan: CONTINUE DETOX
[2016-09-04] MEDS: CYCLOBENZAPRINE HCL 10 MG TABLET (FP) PO PRN (16:30)
[2016-09-04] MEDS: DOCUSATE SODIUM 100 MG CAPSULE (FP) PO SCH (21:48)
[2016-09-04] MEDS: QUEtiapine FUMARATE 50 MG TABLET PO SCH (21:48)
[2016-09-04] MEDS: THIAMINE HCL 100 MG TABLET (FP) PO SCH (21:48)
[2016-09-04] MEDS: diphenhydrAMINE HCL 50 MG CAPSULE PO PRN (21:48)
[2016-09-05] MEDS: IBUPROFEN 400 MG TABLET (FP) PO PRN ×3 (01:31→18:17)
[2016-09-05] MEDS ORDERED: METHADONE HCL 10 MG TABLET (FOR DETOX USE ONLY) PO ONE (10:00)
[2016-09-05] MEDS: RANITIDINE HCL 150 MG TABLET (FP) PO SCH ×2 (10:23→22:25)
[2016-09-05] MEDS: cloNIDine HCL 0.1 MG TABLET PO SCH ×2 (10:23→22:25)
[2016-09-05] MEDS: PRENATAL VITAMINS W/ FOLIC ACID TABLET (FP) PO SCH (10:23)
[2016-09-05] MEDS: CYCLOBENZAPRINE HCL 10 MG TABLET (FP) PO PRN ×2 (10:24→17:41)
--- NOTE | 2016-09-05 11:35 | PN ---
BHS Progress Note (SOAP) Subjective: Sweating, Interrupted sleep, Lower Back Ache, Tremors, Body Aches. Objective: PT. A & O X 3, OBSERVED AMBULATING ON UNIT. NO ACUTE DISTRESS. 09/05/16 11:32 Vital Signs Temperature 97.7 F 09/05/16 05:58 Pulse Rate 76 09/05/16 05:58 Respiratory Rate 20 09/05/16 05:58 Blood Pressure 114/66 09/05/16 05:58 O2 Sat by Pulse Oximetry (%) Laboratory Tests 09/01/16 09/02/16 09/02/16 14:00 06:00 06:00 WBC 12.4 H RBC 5.62 H Hgb 16.2 Hct 48.9 MCV 87.1 MCHC 33.2 RDW 13.8 Plt Count 246 MPV 9.0 Sodium 136 Potassium 4.4 Chloride 99 Carbon Dioxide 26 Anion Gap 11 BUN 17 D Creatinine 0.9 Creat Clearance w eGFR > 60 Random Glucose 146 H D Fasting Glucose Calcium 9.1 Total Bilirubin 0.9 D AST 15 ALT 27 D Alkaline Phosphatase 77 Total Protein 8.0 Albumin 4.1 Urine Color Ltyellow Urine Appearance Clear Urine pH 5.0 Ur Specific [place] 1.015 Urine Protein Negative Urine Glucose (UA) Negative Urine Ketones Negative Urine Blood 1+ H Urine Nitrite Negative Urine Bilirubin Negative Urine Urobilinogen Negative Ur Leukocyte Esterase Negative Urine RBC 2 Urine WBC 1 Hyaline Casts 4 Urine Mucus Rare RPR Titer 09/02/16 09/03/16 09/03/16 06:00 07:00 07:00 WBC 9.4 RBC 5.08 Hgb 14.8 Hct 44.1 MCV 86.8 MCHC 33.5 RDW 13.9 Plt Count 214 MPV 8.5 Sodium Potassium Chloride Carbon Dioxide Anion Gap BUN Creatinine Creat Clearance w eGFR Random Glucose Fasting Glucose 75 Calcium Total Bilirubin AST ALT Alkaline Phosphatase Total Protein Albumin Urine Color Urine Appearance Urine pH Ur Specific [place] Urine Protein Urine Glucose (UA) Urine Ketones Urine Blood Urine Nitrite Urine Bilirubin Urine Urobilinogen Ur Leukocyte Esterase Urine RBC Urine WBC Hyaline Casts Urine Mucus RPR Titer Nonreactive LABS NOTED. Assessment: 09/05/16 11:33 WITHDRAWAL SYMPTOMS. Plan: CONTINUE DETOX.
[2016-09-05] MEDS: THIAMINE HCL 100 MG TABLET (FP) PO SCH (22:25)
[2016-09-05] MEDS: diphenhydrAMINE HCL 50 MG CAPSULE PO PRN (22:25)
[2016-09-05] MEDS: QUEtiapine FUMARATE 50 MG TABLET PO SCH (22:25)
[2016-09-05] MEDS: DOCUSATE SODIUM 100 MG CAPSULE (FP) PO SCH (22:25)
[2016-09-05] MEDS: ACETAMINOPHEN 325 MG TABLET (FP) PO PRN (23:15)
[2016-09-06] MEDS ORDERED: METHADONE HCL 5 MG TABLET (FOR DETOX USE ONLY) PO ONE (06:00)
[2016-09-06] MEDS: IBUPROFEN 400 MG TABLET (FP) PO PRN (06:07)
[2016-09-06 06:43] VITALS: BP 127/92; PULSE 99; TEMP 96.3
[2016-09-06] MEDS: ACETAMINOPHEN 325 MG TABLET (FP) PO PRN (07:52)
--- NOTE | 2016-09-06 08:55 | DS ---
[facility] Detox Discharge Summary Admission Date: 09/01/16 Discharge Date: 09/06/16 - History Present History: Opioid Dependence Additional Comments: follow up with after care program as arrangement Pertinent Past History: gerd chronic low back pain obesity - Physical Exam Results Vital Signs: Vital Signs Temperature 96.3 F L 09/06/16 05:00 Pulse Rate 99 H 09/06/16 05:00 Respiratory Rate 20 09/06/16 05:00 Blood Pressure 127/92 09/06/16 05:00 O2 Sat by Pulse Oximetry (%) Pertinent Admission Physical Exam Findings: withdrawal symptom - Treatment Hospital Course: Detox Protocol Followed, Detoxed Safely, Responded well, Discharged Condition Good Patient has Accepted a Rehab Referral to: declined - Medication Discharge Medications: Ambulatory Orders Quetiapine Fumarate [Seroquel] 100 mg PO HS #60 tablet 05/26/16 Ranitidine [Zantac -] 150 mg PO BID #60 tablet 05/26/16 Docusate Sodium [Colace -] 100 mg PO HS 09/01/16 Ibuprofen [Motrin -] 600 mg PO TID PRN 09/01/16 Quetiapine Fumarate [Seroquel] 150 mg PO HS #30 tablet 09/01/16 Quetiapine Fumarate [Seroquel] 150 mg PO HS #60 tablet 09/06/16 - Diagnosis (1) Chronic back pain Current Visit: Yes Status: Chronic Qualifiers: Back pain location: low back pain Back pain laterality: left Sciatica presence: with sciatica Sciatica laterality: sciatica of left side Qualified Code(s): M54.42 - Lumbago with sciatica, left side; G89.29 - Other chronic pain (2) GERD (gastroesophageal reflux disease) Current Visit: Yes Status: Chronic Qualifiers: Esophagitis presence: without esophagitis Qualified Code(s): K21.9 - Gastro-esophageal reflux disease without esophagitis (3) Obesity Current Visit: Yes Status: Chronic (4) Opioid dependence with withdrawal Current Visit: Yes Status: Chronic (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
[2016-09-06] MEDS: RANITIDINE HCL 150 MG TABLET (FP) PO SCH (09:19)
[2016-09-06] MEDS: PRENATAL VITAMINS W/ FOLIC ACID TABLET (FP) PO SCH (09:19)
[2016-09-06] MEDS: cloNIDine HCL 0.1 MG TABLET PO SCH (09:19)
[2016-09-06] MEDS: CYCLOBENZAPRINE HCL 10 MG TABLET (FP) PO PRN (09:21)
== END 2016-09-06 09:36 | disposition home or self-care (01) | DRG 773 ==
LOC: YASAS 09:55 → Y6N 11:37
PROVIDERS: ADMIT Internal Medicine; ATTEND Internal Medicine
PROC: HZ2ZZZZ Detoxification Services for Substance Abuse Treatment (ICD-10-PCS; principal; 2016-09-01)
DX: F11.23 Opioid dependence with withdrawal (principal); F19.282 Other psychoactive substance dependence with psychoactive substance-induced sleep disorder; K21.9 Gastro-esophageal reflux disease without esophagitis; E66.9 Obesity, unspecified; Z68.33 Body mass index [BMI] 33.0-33.9, adult; M54.42 Lumbago with sciatica, left side; G89.29 Other chronic pain
CPT/HCPCS: 36415; 80053; 81003; 81015; 82947; 85027; 86593; 93005; 93010

== ENCOUNTER 2016-12-08 19:20 | Inpatient (IN) | payer OTHER ==
[2016-12-08 19:32] VITALS: BMI 35.6
--- NOTE | 2016-12-08 21:47 | HP ---
COWS - Scale Resting Pulse: 1= [place] 81-100 Sweatin= Chills/Flushing Restless Observation: 3= Extraneous Movement Pupil Size: 0= Normal to Room Light Bone or Joint Aches: 2= Severe Diffuse Aches Runny Nose/ Eye Tearin= Runny Nose/Eyes GI Upset > 30mins: 2= Nausea/Diarrhea Tremor Observation: 2= Slight Tremor Visible Yawning Observation: 0= None Anxiety or Irritability: 2=Irritable/Anxious Goose Flesh Skin: 0=Smooth Skin COWS Score: 15 Admission [facility] Chief Complaint: withdrawal sx Allergies/Adverse Reactions: Allergies Allergy/AdvReac Type Severity Reaction Status Date / Time No Known Allergies Allergy Verified 09/01/16 10:28 History of Present Illness: 51 years old male with long history of heroin dependence denies medical issue has anxiety and depression is admitted to detox Exam Limitations: No Limitations - Ebola screening Have you traveled outside of the country in the last 21 days: No Have you had contact with anyone from an Ebola affected area: No Have you been sick,other than usual withdrawal symptoms: No Do you have a fever: No - Review of Systems Constitutional: Changes in sleep, Weight Stable EENT: reports: Blurred Vision (eye glasses) Respiratory: reports: No Symptoms reported Cardiac: reports: No Symptoms Reported GI: reports: Nausea, Poor Fluid Intake, Indigestion, Abdominal cramping : reports: No Symptoms Reported Musculoskeletal: reports: Back Pain, Joint Pain, Muscle Pain, Neck Pain Integumentary: reports: No Symptoms Reported Neuro: reports: No Symptoms reported Endocrine: reports: No Symptoms Reported Hematology: reports: No Symptoms Reported Psychiatric: reports: Judgement Intact, Orientated x3, Anxious, Depressed Other Systems: Reviewed and Negative Patient History - Patient Medical History Hx Anemia: No Hx Asthma: No Hx Chronic Obstructive Pulmonary Disease (COPD): No Hx Cancer: No Hx Cardiac Disorders: No Hx Congestive Heart Failure: No Hx Hypertension: No (HX ELEVATED BP BUT NEVER DIAGNOSED OR TREATED; ?? WITHDRAWAL SX) Hx Hypercholesterolemia: No ("IT USED TO BE HIGH"- NO CURRENT MED) Hx Pacemaker: No HX Cerebrovascular Accident: No Hx Seizures: No Hx Dementia: No Hx Diabetes: No Hx Gastrointestinal Disorders: Yes (ACID REFLUX-ON ZANTAC) Hx Liver Disease: No Hx Genitourinary Disorders: No Hx Sexually Transmitted Disorders: No Hx Renal Disease (ESRD): No Hx Thyroid Disease: No Hx Human Immunodeficiency Virus (HIV): No (NEVER TESTED) Hx Hepatitis C: No Hx Depression: No (BUT HX SEVERE ANXIETY) Hx Suicide Attempt: No (DENIES) Hx Bipolar Disorder: No Hx Schizophrenia: No - Patient Surgical History Past Surgical History: No Hx Neurologic Surgery: No Hx Cataract Extraction: No Hx Cardiac Surgery: No Hx Lung Surgery: No Hx Breast Surgery: No Hx Breast Biopsy: No Hx Abdominal Surgery: No Hx Appendectomy: No Hx Cholecystectomy: No Hx Genitourinary Surgery: No Hx Orthopedic Surgery: No - PPD History Previous Implant?: Yes Implanted On Prior [facility] Admission?: Yes Date: 05/02/16 Results: 0 mm PPD to be Administered?: No - Smoking Cessation Smoking history: Never smoked Aproximately how many cigarettes per day: 0 Cigars Per Day: 0 Hx Chewing Tobacco Use: No Initiated information on smoking cessation: No - Substance & Tx. History Hx Alcohol Use: No Hx Substance Use: Yes Substance Use Type: Heroin, Opiates, Tranquilizers Hx Substance Use Treatment: Yes (09/01-09/06/16 [facility]) - Substances Abused Heroin Route: Inhalation Frequency: Daily Amount used: 10 bags Age of first use: 29 Date of Last Use: 12/08/16 Family Disease History - Family Disease History Family Disease History: Diabetes: Brother, Heart Disease: Brother, [place]: Father ( lymphoma/), Mother (breast/) Admission Physical Exam BHS - Vital Signs Vital Signs: Vital Signs - 24 hr 12/08/16 19:30 Temperature 96.4 F L Pulse Rate 91 H Respiratory 20 Rate Blood Pressure 142/90 - Physical General Appearance: Yes: Appropriately Dressed, Mild Distress, Obese, Tremorous , Irritable, Sweating, Anxious HEENTM: Yes: Hearing grossly Normal, Normal ENT Inspection, Normocephalic, Normal Voice Respiratory: Yes: Chest Non-Tender, Lungs Clear, Normal Breath Sounds, No Respiratory Distress, No Accessory Muscle Use Neck: Yes: Supple, Trachea in good position Breast: Yes: Breasts Symetrical Cardiology: Yes: Regular Rhythm, S1, S2, Tachycardia Abdominal: Yes: Non Tender, Soft, Increased Bowel Sounds Genitourinary: Yes: Within Normal Limits Back: Yes: Normal Inspection Musculoskeletal: Yes: full range of Motion, Gait Steady, Back pain, Muscle Pain Extremities: Yes: Normal Inspection, Normal Range of Motion, Non-Tender, Tremors 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: Yes: Fully Oriented, Alert, Motor Strength 5/5, Normal Response, Depressed Affect Integumentary: Yes: Warm Lymphatic: Yes: Within Normal Limits - Diagnostic (1) GERD (gastroesophageal reflux disease) Current Visit: Yes Status: Chronic Qualifiers: Esophagitis presence: without esophagitis Qualified Code(s): K21.9 - Gastro-esophageal reflux disease without esophagitis (2) Obesity Current Visit: Yes Status: Chronic Qualifiers: Obesity type: due to excess calories Serious obesity comorbidity presence: without serious comorbidity Body mass index: BMI 35.0-35.9 (3) Opioid dependence with withdrawal Current Visit: Yes Status: Acute (4) Nasal congestion Current Visit: Yes Status: Chronic (5) Anxiety with depression Current Visit: Yes Status: Suspected Cleared for Admission [facility] - Detox or Rehab [facility] Level of Care: Medically Managed Detox Regimen/Protocol: Methadone [facility] Breath Alcohol Content Breath Alcohol Content: 0 Urine Drug Screen - Results Drug Screen Negative: No Urine Drug Screen Results: OPI-Opiates, MET-Methamphetamine, MDMA-Ecstasy, BZO- Benzodiazepines, MTD-Methadone
[2016-12-08] MEDS ORDERED: MAGNESIUM HYDROX 2400MG/30ML ORAL SUSPENSION 30 ML CUP PO PRN (21:50)
[2016-12-08] MEDS ORDERED: MENTHOL/PHENOL 1 EACH UD MM PRN (21:50)
[2016-12-08] MEDS ORDERED: guaiFENesin/D-METHORPHAN HB 10 ML UNIT-DOSE CUPS PO PRN (21:50)
[2016-12-08] MEDS ORDERED: MAGNESIUM CITRATE 300 ML BOTTLE PO PRN (21:50)
[2016-12-08] MEDS ORDERED: METHADONE HCL 10 MG TABLET (FOR DETOX USE ONLY) PO ONE ×2 (21:50→23:00)
[2016-12-08] MEDS ORDERED: LOPERAMIDE HCL 2 MG CAPSULE PO PRN (21:50)
[2016-12-08] MEDS ORDERED: diphenhydrAMINE HCL 50 MG CAPSULE PO PRN (21:50)
[2016-12-08] MEDS ORDERED: MAG HYDROX/AL HYDROX/SIMETH 30 ML UNIT-DOSE CUP PO PRN (21:50)
[2016-12-08] MEDS ORDERED: P-EPHED 60MG/TRIPROLIDI 2.5MG TABLET PO PRN (21:50)
[2016-12-08] MEDS: cloNIDine HCL 0.1 MG TABLET PO PRN (23:45)
[2016-12-08] MEDS: RANITIDINE HCL 150 MG TABLET (FP) PO SCH (23:45)
[2016-12-08] MEDS: diazePAM 5 MG TABLET PO PRN (23:45)
[2016-12-08] MEDS: THIAMINE HCL 100 MG TABLET (FP) PO SCH (23:45)
[2016-12-09] MEDS: diazePAM 5 MG TABLET PO PRN ×4 (05:45→22:12)
[2016-12-09 09:53] LABS: MCH 29.4 pg (25.7-33.7); MCHC 33.2 g/dl (32.0-35.9); MEAN CELL VOLUME 88.4 fl (80-96); MEAN PLT VOLUME 8.7 fl (7.5-11.1); PLATELET COUNT 231 K/MM3 (134-434); RDW 14.1 % (11.9-15.9); WHITE BLOOD COUNT 10.6 K/mm3 (4.0-10.0)
[2016-12-09] MEDS ORDERED: METHADONE HCL 10 MG TABLET (FOR DETOX USE ONLY) PO ONE (10:00)
[2016-12-09] MEDS: RANITIDINE HCL 150 MG TABLET (FP) PO SCH ×2 (10:14→22:12)
[2016-12-09] MEDS: PRENATAL VITAMINS W/ FOLIC ACID TABLET (FP) PO SCH (10:14)
[2016-12-09] MEDS: FLUTICASONE PROP 0.05% 16 GM NASAL SPRAY NS SCH ×3 (10:15→22:13)
[2016-12-09 10:30] LABS: ALBUMIN 3.2 g/dl (3.4-5.0); CALCIUM 8.5 mg/dL (8.5-10.1)
[2016-12-09 10:36] LABS: ALK PHOS 53 U/L (45-117); ANION GAP 7 (8-16); BILIRUBIN,TOTAL 0.4 mg/dL (0.2-1.0); CO2 27 mmol/L (21-32); CREATININE 0.8 mg/dL (0.7-1.3); GLUCOSE,RANDOM 92 mg/dL (74-106); SGOT/AST 10 U/L (15-37); SGPT/ALT 20 U/L (12-78); TOT PROT 6.3 g/dl (6.4-8.2)
--- NOTE | 2016-12-09 10:46 | EKG ---
Test Reason : Blood Pressure : / mmHG Vent. Rate : 064 BPM Atrial Rate : 064 BPM P-R Int : 174 ms QRS Dur : 100 ms QT Int : 402 ms P-R-T Axes : 055 019 023 degrees QTc Int : 414 ms NORMAL SINUS RHYTHM NORMAL ECG WHEN COMPARED WITH ECG OF 01-SEP-2016 12:20, NO SIGNIFICANT CHANGE WAS FOUND Confirmed by MANUEL GODFREY MD ([id number]) on 12/09/2016 10:46:03 AM Referred By: Ean Araiza Confirmed By:MANUEL GODFREY MD
--- NOTE | 2016-12-09 10:57 | PN ---
S COWS - Scale Resting Pulse: 1= [place] 81-100 Sweatin= Chills/Flushing Restless Observation: 3= Extraneous Movement Pupil Size: 0= Normal to Room Light Bone or Joint Aches: 2= Severe Diffuse Aches Runny Nose/ Eye Tearin= None GI Upset > 30mins: 0= None Tremor Observation of Outstretched Hands: 2= Slight Tremor Visible Yawning Observation: 1= 1-2x During Session Anxiety or Irritability: 2=Irritable/Anxious Goose Flesh Skin: 0=Smooth Skin COWS Score: 12 S Progress Note (SOAP) Subjective: ANXIETY,SWEATS,FATIGUE. Objective: 12/09/16 10:56 Vital Signs Temperature 96.4 F L 12/09/16 09:14 Pulse Rate 96 H 12/09/16 09:14 Respiratory Rate 20 12/09/16 09:14 Blood Pressure 125/79 12/09/16 09:14 O2 Sat by Pulse Oximetry (%) Laboratory Last Values WBC 10.6 K/mm3 (4.0-10.0) H 12/09/16 07:00 RBC 4.83 M/mm3 (4.00-5.60) 12/09/16 07:00 Hgb 14.2 GM/dL (11.7-16.9) 12/09/16 07:00 Hct 42.7 % (35.4-49) 12/09/16 07:00 MCV 88.4 fl (80-96) 12/09/16 07:00 MCH 29.4 pg (25.7-33.7) 12/09/16 07:00 MCHC 33.2 g/dl (32.0-35.9) 12/09/16 07:00 RDW 14.1 % (11.9-15.9) 12/09/16 07:00 Plt Count 231 K/MM3 (134-434) 12/09/16 07:00 MPV 8.7 fl (7.5-11.1) 12/09/16 07:00 OTHER LAB RESULTS PENDING. Assessment: 12/09/16 10:57 WITHDRAWAL SX Plan: CONTINUE DETOX
[2016-12-09] MEDS ORDERED: FLU VACCINE QUAD 60 MCG/0.5 ML (MDV 17-18) IM ONE (12:00)
--- NOTE | 2016-12-09 12:35 | CONSULT ---
[facility] Psychiatric Consult - Data Date of interview: 12/09/16 Admission source: [facility] Identifying data: This is 51 years old obese male with no psychiatric hospitalization history iontoxicated with: Opioids Substance Abuse History: - Smoking Cessation. Smoking history: Never smoked. Aproximately how many cigarettes per day: 0. Cigars Per Day: 0. Hx Chewing Tobacco Use: No. Initiated information on smoking cessation: No. - Substance & Tx. History. Hx Alcohol Use: No. Hx Substance Use: Yes. Substance Use Type : Heroin, Opiates, Tranquilizers. Hx Substance Use Treatment: Yes (09/01- [facility]). - Substances Abused. Heroin. Route: Inhalation. Frequency : Daily. Amount used: 10 bags. Age of first use: 29. Date of Last Use: Medical History: Obesity, GERD, LBP Psychiatric History: Patient reports history of depression and anxiety, as per computer has been on Seroquelm 150mg po qhs, patient refusing to restart psychiatric medications Physical/Sexual Abuse/Trauma History: Denies Additional Comment: refusing to restart psychiatric medications Mental Status Exam - Mental Status Exam Alert and Oriented to: Person Cognitive Function: Fair Patient Appearance: Unkempt Mood: Anxious Affect: Mood Congruent Patient Behavior: Cooperative Speech Pattern: Appropriate Voice Loudness: Mildly Loud Thought Process: Circumstantial Thought Disorder: Being Controlled Hallucinations: Denies Suicidal Ideation: Denies Homicidal Ideation: Denies Insight/Judgement: Fair Sleep: Difficulty falling asleep Appetite: Weight gain Muscle strength/Tone: Mild Hypotonicity Gait/Station: Shuffling Additional Comments: refusing to restart psychiatric medications Psychiatric Findings - Problem List ([place] 1, 2,3) (1) Opioid dependence with withdrawal Current Visit: Yes Status: Acute (2) Anxiety with depression Current Visit: Yes Status: Suspected (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 Observatoion. Detox Unit Care Protocol
[2016-12-09 16:42] LABS: URINE APPEARANCE SLCLOUDY; URINE BILIRUBIN NEGATIVE (NEGATIVE); URINE BLOOD NEGATIVE (NEGATIVE); URINE COLOR YELLOW; URINE GLUCOSE (UA) NEGATIVE (NEGATIVE); URINE KETONE NEGATIVE (NEGATIVE); URINE LEUK ESTERASE NEGATIVE (NEGATIVE); URINE NITRITE NEGATIVE (NEGATIVE); URINE PROTEIN NEGATIVE (NEGATIVE); URINE UROBILINOGEN NEGATIVE mg/dL (0.2-1.0)
[2016-12-09] MEDS: THIAMINE HCL 100 MG TABLET (FP) PO SCH (22:12)
[2016-12-10] MEDS: diazePAM 5 MG TABLET PO PRN ×3 (05:42→22:09)
[2016-12-10] MEDS ORDERED: METHADONE HCL 5 MG TABLET (FOR DETOX USE ONLY) PO ONE (10:00)
[2016-12-10] MEDS: RANITIDINE HCL 150 MG TABLET (FP) PO SCH ×2 (10:13→22:09)
[2016-12-10] MEDS: FLUTICASONE PROP 0.05% 16 GM NASAL SPRAY NS SCH ×2 (10:13→22:09)
[2016-12-10] MEDS: PRENATAL VITAMINS W/ FOLIC ACID TABLET (FP) PO SCH (10:13)
[2016-12-10] MEDS ORDERED: cloNIDine HCL 0.1 MG TABLET PO ONE (14:15)
--- NOTE | 2016-12-10 14:18 | PN ---
BHS COWS - Scale Resting Pulse: 0= [place] 80 or Below Sweatin= Chills/Flushing Restless Observation: 0= Sits Still Pupil Size: 0= Normal to Room Light Bone or Joint Aches: 2= Severe Diffuse Aches Runny Nose/ Eye Tearin= Runny Nose/Eyes GI Upset > 30mins: 1= Stomach Cramp Tremor Observation of Outstretched Hands: 0= None Yawning Observation: 1= 1-2x During Session Anxiety or Irritability: 2=Irritable/Anxious Goose Flesh Skin: 3=Piloerection COWS Score: 12 BHS Progress Note (SOAP) Subjective: Stomach cramping, Body Aches, Anxious. Objective: PT. A & O X 3, OBSERVED AMBULATING ON UNIT. NO ACUTE DISTRESS. PT. DENIES CHEST PAIN. 12/10/16 14:17 Vital Signs Temperature 96.3 F L 12/10/16 13:01 Pulse Rate 75 12/10/16 13:01 Respiratory Rate 18 12/10/16 13:01 Blood Pressure 139/95 12/10/16 13:01 O2 Sat by Pulse Oximetry (%) Laboratory Tests 12/08/16 12/09/16 12/09/16 07:00 07:00 07:00 WBC 10.6 H RBC 4.83 Hgb 14.2 Hct 42.7 MCV 88.4 MCH 29.4 MCHC 33.2 RDW 14.1 Plt Count 231 MPV 8.7 Sodium 140 Potassium 3.6 Chloride 106 Carbon Dioxide 27 Anion Gap 7 L BUN 18 Creatinine 0.8 Creat Clearance w eGFR > 60 Random Glucose 92 D Calcium 8.5 Total Bilirubin 0.4 D AST 10 L D ALT 20 D Alkaline Phosphatase 53 D Total Protein 6.3 L D Albumin 3.2 L D Urine Color Urine Appearance Urine pH Ur Specific [place] Urine Protein Urine Glucose (UA) Urine Ketones Urine Blood Urine Nitrite Urine Bilirubin Urine Urobilinogen RPR Titer Hepatitis C Antibody <0.1 12/09/16 12/09/16 07:00 14:00 WBC RBC Hgb Hct MCV MCH MCHC RDW Plt Count MPV Sodium Potassium Chloride Carbon Dioxide Anion Gap BUN Creatinine Creat Clearance w eGFR Random Glucose Calcium Total Bilirubin AST ALT Alkaline Phosphatase Total Protein Albumin Urine Color Yellow Urine Appearance Slcloudy Urine pH 5.0 Ur Specific [place] >= 1.030 H Urine Protein Negative Urine Glucose (UA) Negative Urine Ketones Negative Urine Blood Negative Urine Nitrite Negative Urine Bilirubin Negative Urine Urobilinogen Negative RPR Titer Nonreactive Hepatitis C Antibody LABS NOTED. Assessment: 12/10/16 14:18 WITHDRAWAL SYMPTOMS. Plan: CONTINUE DETOX.
[2016-12-10] MEDS: THIAMINE HCL 100 MG TABLET (FP) PO SCH (22:09)
[2016-12-11] MEDS: diazePAM 5 MG TABLET PO PRN ×4 (05:25→19:40)
[2016-12-11] MEDS ORDERED: METHADONE HCL 5 MG TABLET (FOR DETOX USE ONLY) PO ONE (10:00)
[2016-12-11] MEDS: PRENATAL VITAMINS W/ FOLIC ACID TABLET (FP) PO SCH (10:08)
[2016-12-11] MEDS: cloNIDine HCL 0.1 MG TABLET PO PRN (10:08)
[2016-12-11] MEDS: ACETAMINOPHEN 325 MG TABLET (FP) PO PRN (10:09)
[2016-12-11] MEDS: RANITIDINE HCL 150 MG TABLET (FP) PO SCH ×2 (10:09→23:16)
[2016-12-11] MEDS: FLUTICASONE PROP 0.05% 16 GM NASAL SPRAY NS SCH ×2 (10:09→23:16)
--- NOTE | 2016-12-11 14:10 | PN ---
BHS Progress Note (SOAP) Subjective: Interrupted Sleep, Nausea, Sweating, Body Aches. Objective: PT. A & O X 3, OBSERVED AMBULATING ON UNIT. NO ACUTE DISTRESS. PT. DENIES CHEST PAIN. 12/11/16 14:08 Vital Signs Temperature 98.2 F 12/11/16 10:47 Pulse Rate 79 12/11/16 10:47 Respiratory Rate 18 12/11/16 10:47 Blood Pressure 133/97 12/11/16 10:47 O2 Sat by Pulse Oximetry (%) Laboratory Tests 12/08/16 12/09/16 12/09/16 07:00 07:00 07:00 WBC 10.6 H RBC 4.83 Hgb 14.2 Hct 42.7 MCV 88.4 MCH 29.4 MCHC 33.2 RDW 14.1 Plt Count 231 MPV 8.7 Sodium 140 Potassium 3.6 Chloride 106 Carbon Dioxide 27 Anion Gap 7 L BUN 18 Creatinine 0.8 Creat Clearance w eGFR > 60 Random Glucose 92 D Calcium 8.5 Total Bilirubin 0.4 D AST 10 L D ALT 20 D Alkaline Phosphatase 53 D Total Protein 6.3 L D Albumin 3.2 L D Urine Color Urine Appearance Urine pH Ur Specific [place] Urine Protein Urine Glucose (UA) Urine Ketones Urine Blood Urine Nitrite Urine Bilirubin Urine Urobilinogen RPR Titer Hepatitis C Antibody <0.1 12/09/16 12/09/16 07:00 14:00 WBC RBC Hgb Hct MCV MCH MCHC RDW Plt Count MPV Sodium Potassium Chloride Carbon Dioxide Anion Gap BUN Creatinine Creat Clearance w eGFR Random Glucose Calcium Total Bilirubin AST ALT Alkaline Phosphatase Total Protein Albumin Urine Color Yellow Urine Appearance Slcloudy Urine pH 5.0 Ur Specific [place] >= 1.030 H Urine Protein Negative Urine Glucose (UA) Negative Urine Ketones Negative Urine Blood Negative Urine Nitrite Negative Urine Bilirubin Negative Urine Urobilinogen Negative RPR Titer Nonreactive Hepatitis C Antibody LABS NOTED. Assessment: 12/11/16 14:08 WITHDRAWAL SYMPTOMS. Plan: CONTINUE DETOX.
[2016-12-11] MEDS: THIAMINE HCL 100 MG TABLET (FP) PO SCH (23:16)
[2016-12-12] MEDS: ACETAMINOPHEN 325 MG TABLET (FP) PO PRN ×3 (02:27→18:34)
[2016-12-12] MEDS: METHOCARBAMOL 500 MG TABLET PO PRN ×3 (02:27→22:05)
[2016-12-12] MEDS ORDERED: METHADONE HCL 10 MG TABLET (FOR DETOX USE ONLY) PO ONE (10:00)
[2016-12-12] MEDS: FLUTICASONE PROP 0.05% 16 GM NASAL SPRAY NS SCH ×2 (10:12→22:04)
[2016-12-12] MEDS: PRENATAL VITAMINS W/ FOLIC ACID TABLET (FP) PO SCH (10:12)
[2016-12-12] MEDS: RANITIDINE HCL 150 MG TABLET (FP) PO SCH ×2 (10:12→22:03)
[2016-12-12] MEDS: cloNIDine HCL 0.1 MG TABLET PO PRN ×2 (10:12→22:04)
--- NOTE | 2016-12-12 13:25 | PN ---
S Progress Note (SOAP) Subjective: Sweating, interrupted sleep (requesting benadryl tonight), anxious, restless. Patient requesting to be discharged today stating that everyone he came in with have been leaving today. [employer] Manager explained to patient that his peers who are leaving today most likely completed their treatment and is officially discharged and he should stay and complete his as well. Patient aware that if he does not complete his program, he will not receive a completion certificate from his counselor and it doesn't look good on him if he chose to leave [place]. Patient agreed to stay and complete his program. Objective: 12/12/16 13:25 Last Vital Signs Temp Pulse Resp BP Pulse Ox 96.4 F L 74 20 143/70 12/12/16 09:47 12/12/16 09:47 12/12/16 09:47 12/12/16 09:47 Laboratory Tests 12/08/16 12/09/16 12/09/16 07:00 07:00 07:00 WBC 10.6 H RBC 4.83 Hgb 14.2 Hct 42.7 MCV 88.4 MCH 29.4 MCHC 33.2 RDW 14.1 Plt Count 231 MPV 8.7 Sodium 140 Potassium 3.6 Chloride 106 Carbon Dioxide 27 Anion Gap 7 L BUN 18 Creatinine 0.8 Creat Clearance w eGFR > 60 Random Glucose 92 D Calcium 8.5 Total Bilirubin 0.4 D AST 10 L D ALT 20 D Alkaline Phosphatase 53 D Total Protein 6.3 L D Albumin 3.2 L D Urine Color Urine Appearance Urine pH Ur Specific [place] Urine Protein Urine Glucose (UA) Urine Ketones Urine Blood Urine Nitrite Urine Bilirubin Urine Urobilinogen RPR Titer Hepatitis C Antibody <0.1 12/09/16 12/09/16 07:00 14:00 WBC RBC Hgb Hct MCV MCH MCHC RDW Plt Count MPV Sodium Potassium Chloride Carbon Dioxide Anion Gap BUN Creatinine Creat Clearance w eGFR Random Glucose Calcium Total Bilirubin AST ALT Alkaline Phosphatase Total Protein Albumin Urine Color Yellow Urine Appearance Slcloudy Urine pH 5.0 Ur Specific [place] >= 1.030 H Urine Protein Negative Urine Glucose (UA) Negative Urine Ketones Negative Urine Blood Negative Urine Nitrite Negative Urine Bilirubin Negative Urine Urobilinogen Negative RPR Titer Nonreactive Hepatitis C Antibody Labs noted Assessment: 12/12/16 13:25 Withdrawal symptoms Plan: Continue detox Ambien 10mg PO x 1 tonight
[2016-12-12] MEDS ORDERED: ZOLPIDEM TARTRATE 5 MG TABLET PO ONE (22:00)
[2016-12-12] MEDS: THIAMINE HCL 100 MG TABLET (FP) PO SCH (22:03)
[2016-12-13] MEDS: ACETAMINOPHEN 325 MG TABLET (FP) PO PRN (04:55)
[2016-12-13] MEDS ORDERED: METHADONE HCL 5 MG TABLET (FOR DETOX USE ONLY) PO ONE (06:00)
[2016-12-13] MEDS: METHOCARBAMOL 500 MG TABLET PO PRN (08:28)
--- NOTE | 2016-12-13 08:44 | DS ---
[facility] Detox Discharge Summary Admission Date: 12/08/16 Discharge Date: 12/13/16 - History Present History: Opioid Dependence Pertinent Past History: GERD, nsal congestion ,insomnia, anxiety and depression - Physical Exam Results Vital Signs: Vital Signs Temperature 96.4 F L 12/13/16 06:13 Pulse Rate 95 H 12/13/16 06:13 Respiratory Rate 18 12/13/16 06:13 Blood Pressure 127/79 12/13/16 06:13 O2 Sat by Pulse Oximetry (%) Laboratory Tests 12/08/16 12/09/16 12/09/16 07:00 07:00 07:00 WBC 10.6 H RBC 4.83 Hgb 14.2 Hct 42.7 MCV 88.4 MCH 29.4 MCHC 33.2 RDW 14.1 Plt Count 231 MPV 8.7 Sodium 140 Potassium 3.6 Chloride 106 Carbon Dioxide 27 Anion Gap 7 L BUN 18 Creatinine 0.8 Creat Clearance w eGFR > 60 Random Glucose 92 D Calcium 8.5 Total Bilirubin 0.4 D AST 10 L D ALT 20 D Alkaline Phosphatase 53 D Total Protein 6.3 L D Albumin 3.2 L D Urine Color Urine Appearance Urine pH Ur Specific [place] Urine Protein Urine Glucose (UA) Urine Ketones Urine Blood Urine Nitrite Urine Bilirubin Urine Urobilinogen RPR Titer Hepatitis C Antibody <0.1 12/09/16 12/09/16 07:00 14:00 WBC RBC Hgb Hct MCV MCH MCHC RDW Plt Count MPV Sodium Potassium Chloride Carbon Dioxide Anion Gap BUN Creatinine Creat Clearance w eGFR Random Glucose Calcium Total Bilirubin AST ALT Alkaline Phosphatase Total Protein Albumin Urine Color Yellow Urine Appearance Slcloudy Urine pH 5.0 Ur Specific [place] >= 1.030 H Urine Protein Negative Urine Glucose (UA) Negative Urine Ketones Negative Urine Blood Negative Urine Nitrite Negative Urine Bilirubin Negative Urine Urobilinogen Negative RPR Titer Nonreactive Hepatitis C Antibody Pertinent Admission Physical Exam Findings: withdrawal sx - Treatment Hospital Course: Detox Protocol Followed, Detoxed Safely, Responded well, Discharged Condition Good, Rehab Referral Accepted Patient has Accepted a Rehab Referral to: no returning to work , recommended MAT w suboxone - Medication Discharge Medications: Ambulatory Orders Quetiapine Fumarate [Seroquel] 50 mg PO HS #30 tablet 12/13/16 - Diagnosis (1) Opioid dependence with withdrawal Current Visit: Yes Status: Chronic (2) Opioid-induced mood disorder Current Visit: Yes Status: Acute (3) GERD (gastroesophageal reflux disease) Current Visit: Yes Status: Chronic Qualifiers: Esophagitis presence: without esophagitis Qualified Code(s): K21.9 - Gastro-esophageal reflux disease without esophagitis; K21.9 - Gastro- esophageal reflux disease without esophagitis; K21.9 - Gastro-esophageal reflux disease without esophagitis (4) Nasal congestion Current Visit: Yes Status: Chronic (5) Obesity Current Visit: Yes Status: Chronic Qualifiers: Obesity type: due to excess calories Serious obesity comorbidity presence: without serious comorbidity Body mass index: BMI 35.0-35.9 (6) Chronic back pain Current Visit: No Status: Chronic Qualifiers: Back pain location: low back pain Back pain laterality: left Sciatica presence: with sciatica Sciatica laterality: sciatica of left side Qualified Code(s): M54.42 - Lumbago with sciatica, left side; M54.42 - Lumbago with sciatica, left side; G89.29 - Other chronic pain; G89.29 - Other chronic pain (7) Substance-induced sleep disorder Current Visit: Yes Status: Acute - AMA Did Patient Leave Against Medical Advice: No
[2016-12-13 08:51] VITALS: BP 127/87; PULSE 79; TEMP 96.9
== END 2016-12-13 09:11 | disposition home or self-care (01) | DRG 773 ==
LOC: YASAS 19:20 → Y3N 22:11
PROVIDERS: ADMIT Internal Medicine; ATTEND Internal Medicine
PROC: HZ2ZZZZ Detoxification Services for Substance Abuse Treatment (ICD-10-PCS; principal; 2016-12-08)
DX: F11.23 Opioid dependence with withdrawal (principal); F11.24 Opioid dependence with opioid-induced mood disorder; F19.282 Other psychoactive substance dependence with psychoactive substance-induced sleep disorder; F41.8 Other specified anxiety disorders; K21.9 Gastro-esophageal reflux disease without esophagitis; R09.81 Nasal congestion; R00.0 Tachycardia, unspecified; E66.9 Obesity, unspecified; Z68.35 Body mass index [BMI] 35.0-35.9, adult; M54.42 Lumbago with sciatica, left side; G89.29 Other chronic pain
CPT/HCPCS: 36415; 80053; 81003; 85027; 86593; 86803; 90688; 93005; 93010; G0008

== ENCOUNTER 2017-06-20 12:51 | Inpatient (IN) | payer OTHER ==
[2017-06-20 13:19] VITALS: BMI 37.2
--- NOTE | 2017-06-20 16:24 | HP ---
COWS - Scale Resting Pulse: 1= [place] 81-100 Sweatin= Chills/Flushing Restless Observation: 1= Difficult to Sit Still Pupil Size: 1= Pupils >than Normal Bone or Joint Aches: 1= Mild Discomfort Runny Nose/ Eye Tearin= Nasal Congestion GI Upset > 30mins: 2= Nausea/Diarrhea Tremor Observation: 1= Tremor [place], Not Seen Yawning Observation: 1= 1-2x During Session Anxiety or Irritability: 2=Irritable/Anxious Goose Flesh Skin: 0=Smooth Skin COWS Score: [address] [facility] - HPI Chief Complaint: heroin withdrawal sx Allergies/Adverse Reactions: Allergies Allergy/AdvReac Type Severity Reaction Status Date / Time No Known Allergies Allergy Verified 06/20/17 16:17 History of Present Illness: 52 yo m well known to [facility] for multiple dmissions for opioid detox no w requesting inpatietn detoxifiation from heorin, oxycodone and street methadone, denies daily benzodiazepine use, no h/o seizures no h/o DTS. PMHX depression, anxieyt and insomnia, dehydataion obesity. no h/o smoking, h/o psychiatric hopstiaization but no si at this time Exam Limitations: No Limitations - Ebola screening Have you traveled outside of the country in the last 21 days: Yes Have you had contact with anyone from an Ebola affected area: No Have you been sick,other than usual withdrawal symptoms: No - Review of Systems Constitutional: Chills, Diaphoresis, Night Sweats, Changes in sleep, Weakness EENT: reports: Tearing, Nose Congestion Respiratory: reports: No Symptoms reported Cardiac: reports: No Symptoms Reported GI: reports: Diarrhea, Nausea, Poor Appetite, Poor Fluid Intake, Indigestion, Abdominal cramping : reports: No Symptoms Reported Musculoskeletal: reports: Joint Pain, Muscle Pain, Neck Pain Neuro: reports: Tremors Endocrine: reports: Increased Thirst Hematology: reports: No Symptoms Reported Psychiatric: reports: Judgement Intact, Mood/Affect Appropiate, Orientated x3, Agitated, Anxious, Depressed Other Systems: Reviewed and Negative Patient History - Patient Medical History Hx Anemia: No Hx Asthma: No Hx Chronic Obstructive Pulmonary Disease (COPD): No Hx Cancer: No Hx Cardiac Disorders: No Hx Congestive Heart Failure: No Hx Hypertension: No Hx Hypercholesterolemia: No ("IT USED TO BE HIGH"- NO CURRENT MED) Hx Pacemaker: No HX Cerebrovascular Accident: No Hx Seizures: No Hx Dementia: No Hx Diabetes: No Hx Gastrointestinal Disorders: No Hx Liver Disease: No Hx Genitourinary Disorders: No Hx Sexually Transmitted Disorders: No Hx Renal Disease (ESRD): No Hx Thyroid Disease: No Hx Human Immunodeficiency Virus (HIV): No (NEVER TESTED) Hx Hepatitis C: No Hx Depression: Yes Hx Suicide Attempt: No (no si) Hx Bipolar Disorder: No Hx Schizophrenia: No - Patient Surgical History Past Surgical History: No Hx Neurologic Surgery: No Hx Cataract Extraction: No Hx Cardiac Surgery: No Hx Lung Surgery: No Hx Breast Surgery: No Hx Breast Biopsy: No Hx Abdominal Surgery: No Hx Appendectomy: No Hx Cholecystectomy: No Hx Genitourinary Surgery: No Hx Section: No Hx Orthopedic Surgery: No Anesthesia Reaction: No - PPD History Previous Implant?: Yes Documented Results: Negative w/proof Date: 05/02/16 Results: 0 mm PPD to be Administered?: Yes - Reproductive History Patient is a Female of Child Bearing Age (11 -55 yrs old): No Patient : No - Smoking Cessation Smoking history: Never smoked Aproximately how many cigarettes per day: 0 Cigars Per Day: 0 Hx Chewing Tobacco Use: No Initiated information on smoking cessation: No 'Breaking Loose' booklet given: 06/20/17 - Substance & Tx. History Hx Alcohol Use: No Hx Substance Use: Yes Substance Use Type: Heroin, Opiates, Prescribed, Tranquilizers Hx Substance Use Treatment: Yes - Substances Abused Heroin Route: Inhalation Frequency: Daily Amount used: 10-20 BAGS Age of first use: 17 Date of Last Use: 06/20/17 Non-Rx Methadone Route: Oral Frequency: 1-3 times last 30 days Amount used: 50MG Age of first use: 17 Date of Last Use: 06/18/17 Family Disease History - Family Disease History Family Disease History: Diabetes: Brother, Heart Disease: Brother, [place]: Father ( lymphoma/), Mother (breast/) Admission Physical Exam BHS - Vital Signs Vital Signs: Vital Signs - 24 hr 06/20/17 13:04 Temperature 96 F L Pulse Rate 89 Respiratory 20 Rate Blood Pressure 144/87 - Physical General Appearance: Yes: Nourished, Appropriately Dressed, Disheveled, Mild Distress, Obese, Tremorous, Irritable, Sweating, Anxious HEENTM: Yes: EOMI, Hearing grossly Normal, Normocephalic, Normal Voice, ADALBERTO, Pharynx Normal, Nasal Congestion, Rhinorrhea Respiratory: Yes: Within Normal Limits, Chest Non-Tender, Lungs Clear, Normal Breath Sounds, No Respiratory Distress, No Accessory Muscle Use Neck: Yes: Within Normal Limits, No masses,lesions,Nodules, Supple, Trachea in good position Breast: Yes: Breast Exam Deferred Cardiology: Yes: Within Normal Limits, Regular Rhythm, Regular Rate, S1, S2 Abdominal: Yes: Within Normal Limits, Normal Bowel Sounds, Non Tender, Soft, Protuberent, Distended Genitourinary: Yes: Within Normal Limits Back: Yes: Normal Inspection, Muscle Spasm Musculoskeletal: Yes: full range of Motion, Gait Steady, Pelvis Stable, Back pain, Muscle Pain Extremities: Yes: Normal Capillary Refill, Normal Range of Motion, Non-Tender, Tremors 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: Yes: instructor ground services II-XII NML intact, Fully Oriented, Alert, Motor Strength 5/5, Normal Response Integumentary: Yes: Normal Color, Warm, Diaphoresis, Moist Lymphatic: Yes: Within Normal Limits - Addiitonal Findings: withdrawal ws - Diagnostic (1) Benzodiazepine abuse Current Visit: Yes Status: Acute (2) Dehydration Current Visit: Yes Status: Acute (3) Depression Current Visit: Yes Status: Acute (4) Opioid-induced mood disorder Current Visit: No Status: Acute (5) Substance-induced sleep disorder Current Visit: No Status: Acute (6) Chronic back pain Current Visit: No Status: Chronic Qualifiers: Back pain location: low back pain Back pain laterality: left Sciatica presence: with sciatica Sciatica laterality: sciatica of left side Qualified Code(s): M54.42 - Lumbago with sciatica, left side (7) GERD (gastroesophageal reflux disease) Current Visit: No Status: Chronic Qualifiers: Esophagitis presence: without esophagitis Qualified Code(s): K21.9 - Gastro -esophageal reflux disease without esophagitis (8) Nasal congestion Current Visit: No Status: Chronic (9) Obesity Current Visit: No Status: Chronic Qualifiers: Obesity type: due to excess calories Serious obesity comorbidity presence: without serious comorbidity Body mass index: BMI 35.0-35.9 (10) Opioid dependence with withdrawal Current Visit: No Status: Chronic Cleared for Admission [facility] - Detox or Rehab [facility] Level of Care: Medically Managed Detox Regimen/Protocol: Methadone [facility] Breath Alcohol Content Breath Alcohol Content: 0 Urine Drug Screen - Results Drug Screen Negative: No Urine Drug Screen Results: OPI-Opiates, BZO-Benzodiazepines, MTD-Methadone, OXY- Oxycodone
[2017-06-20] MEDS ORDERED: MENTHOL/PHENOL 1 EACH UD MM PRN (16:25)
[2017-06-20] MEDS ORDERED: guaiFENesin/D-METHORPHAN HB 10 ML UNIT-DOSE CUPS PO PRN (16:25)
[2017-06-20] MEDS ORDERED: MAGNESIUM CITRATE 300 ML BOTTLE PO PRN (16:25)
[2017-06-20] MEDS ORDERED: MAG HYDROX/AL HYDROX/SIMETH 30 ML UNIT-DOSE CUP PO PRN (16:25)
[2017-06-20] MEDS ORDERED: hydrOXYzine PAMOATE 50 MG CAPSULE (FP) PO PRN (16:25)
[2017-06-20] MEDS ORDERED: MAGNESIUM HYDROX 2400MG/30ML ORAL SUSPENSION 30 ML CUP PO PRN (16:25)
[2017-06-20] MEDS ORDERED: P-EPHED 60MG/TRIPROLIDI 2.5MG TABLET PO PRN (16:25)
[2017-06-20] MEDS ORDERED: LOPERAMIDE HCL 2 MG CAPSULE PO PRN (16:25)
[2017-06-20] MEDS ORDERED: IBUPROFEN 400 MG TABLET (FP) PO PRN (16:25)
[2017-06-20] MEDS ORDERED: ONDANSETRON *ODT* 4 MG TABLET SL PRN (16:32)
[2017-06-20] MEDS ORDERED: METHADONE HCL 10 MG TABLET (FOR DETOX USE ONLY) PO ONE ×2 (17:15→23:00)
[2017-06-20] MEDS: diazePAM 5 MG TABLET PO PRN ×2 (18:14→22:18)
[2017-06-20] MEDS ORDERED: MELATONIN 5 MG TABLETS PO PRN (22:00)
[2017-06-20] MEDS: NAPROXEN 500 MG TABLET (FP) PO SCH (22:17)
[2017-06-20] MEDS: THIAMINE HCL 100 MG TABLET (FP) PO SCH (22:18)
[2017-06-21 02:32] LABS: URINE APPEARANCE TURBID; URINE BILIRUBIN NEGATIVE (<2.0 mg/dL); URINE BLOOD NEGATIVE (NEGATIVE); URINE COLOR YELLOW; URINE GLUCOSE (UA) NEGATIVE (NEGATIVE); URINE KETONE NEGATIVE (NEGATIVE); URINE LEUK ESTERASE NEGATIVE (NEGATIVE); URINE NITRITE NEGATIVE (NEGATIVE); URINE PROTEIN NEGATIVE (NEGATIVE); URINE UROBILINOGEN NEGATIVE mg/dL (0.2-1.0)
[2017-06-21] MEDS: diazePAM 5 MG TABLET PO PRN ×4 (06:20→22:18)
[2017-06-21] MEDS: NAPROXEN 500 MG TABLET (FP) PO SCH ×2 (09:31→22:16)
[2017-06-21] MEDS: PANTOPRAZOLE 40 MG TABLET (FP) PO SCH (09:31)
[2017-06-21] MEDS: PRENATAL VITAMINS W/ FOLIC ACID TABLET (FP) PO SCH (09:31)
[2017-06-21] MEDS ORDERED: METHADONE HCL 10 MG TABLET (FOR DETOX USE ONLY) PO ONE (10:00)
--- NOTE | 2017-06-21 10:29 | PN ---
BHS COWS - Scale Resting Pulse: 0= [place] 80 or Below Sweatin= Chills/Flushing Restless Observation: 3= Extraneous Movement Pupil Size: 2= Moderately Dilated Bone or Joint Aches: 1= Mild Discomfort Runny Nose/ Eye Tearin= Nasal Congestion GI Upset > 30mins: 1= Stomach Cramp Tremor Observation of Outstretched Hands: 2= Slight Tremor Visible Yawning Observation: 2= >3x During Session Anxiety or Irritability: 2=Irritable/Anxious Goose Flesh Skin: 0=Smooth Skin COWS Score: 15 BHS Progress Note (SOAP) Subjective: ANXIETY, TREMORS,SWEATS, FATIGUE, INTERMITTENT SLEEP- REPORTS HE TAKES SEROQUEL AND TRAZODONE AT HOME. Objective: 06/21/17 10:37 Vital Signs Temperature 95.5 F L 06/21/17 09:37 Pulse Rate 84 06/21/17 09:37 Respiratory Rate 20 06/21/17 09:37 Blood Pressure 121/78 06/21/17 09:37 O2 Sat by Pulse Oximetry (%) Laboratory Last Values Urine Color Yellow 06/20/17 20:05 Urine Appearance Turbid 06/20/17 20:05 Urine pH 5.0 (5.0-8.0) 06/20/17 20:05 Ur Specific [place] 1.026 (1.001-1.035) 06/20/17 20:05 Urine Protein Negative (NEGATIVE) 06/20/17 20:05 Urine Glucose (UA) Negative (NEGATIVE) 06/20/17 20:05 Urine Ketones Negative (NEGATIVE) 06/20/17 20:05 Urine Blood Negative (NEGATIVE) 06/20/17 20:05 Urine Nitrite Negative (NEGATIVE) 06/20/17 20:05 Urine Bilirubin Negative (<2.0 mg/dL) 06/20/17 20:05 Urine Urobilinogen Negative mg/dL (0.2-1.0) 06/20/17 20:05 Ur Leukocyte Esterase Negative (NEGATIVE) 06/20/17 20:05 OTHER LABS PENDING Assessment: 06/21/17 10:37 WITHDRAWAL SX Plan: CONTINUE DETOX PSYCH F/U TODAY.
[2017-06-21 10:39] LABS: HEMATOCRIT 44.1 % (35.4-49); HEMOGLOBIN 14.9 GM/dL (11.7-16.9); MCH 29.7 pg (25.7-33.7); MCHC 33.7 g/dl (32.0-35.9); MEAN CELL VOLUME 88.2 fl (80-96); MEAN PLT VOLUME 8.3 fl (7.5-11.1); PLATELET COUNT 263 K/MM3 (134-434); RBC 4.99 M/mm3 (4.00-5.60); RDW 14.4 % (11.9-15.9); WHITE BLOOD COUNT 9.8 K/mm3 (4.0-10.0)
--- NOTE | 2017-06-21 10:43 | EKG ---
Test Reason : Blood Pressure : / mmHG Vent. Rate : 066 BPM Atrial Rate : 066 BPM P-R Int : 184 ms QRS Dur : 102 ms QT Int : 398 ms P-R-T Axes : 041 023 023 degrees QTc Int : 417 ms NORMAL SINUS RHYTHM CANNOT RULE OUT ANTERIOR INFARCT , AGE UNDETERMINED ABNORMAL ECG WHEN COMPARED WITH ECG OF 08-DEC-2016 23:49, NO SIGNIFICANT CHANGE WAS FOUND Confirmed by MD Jose, Raciel ([id number]) on 06/21/2017 10:42:32 AM Referred By: Confirmed By:Raciel Garcia MD
[2017-06-21 11:15] LABS: ALBUMIN 3.8 g/dl (3.4-5.0); ANION GAP 8 (8-16); BILIRUBIN,TOTAL 0.3 mg/dL (0.2-1.0); BLOOD UREA NITROGEN 23 mg/dL (7-18); CALCIUM 8.2 mg/dL (8.5-10.1); CHLORIDE 107 mmol/L (98-107); CO2 28 mmol/L (21-32); CREATININE 0.9 mg/dL (0.7-1.3); GLUCOSE,RANDOM 69 mg/dL (74-106); SGOT/AST 18 U/L (15-37); SGPT/ALT 22 U/L (12-78); SODIUM 143 mmol/L (136-145); TOT PROT 7.3 g/dl (6.4-8.2)
[2017-06-21 11:16] LABS: ALK PHOS 68 U/L (45-117)
--- NOTE | 2017-06-21 12:05 | CONSULT ---
[facility] Psychiatric Consult - Data Date of interview: 06/21/17 Admission source: [facility] Identifying data: Readmission to [facility] for this 52 y/o male seeking detox treatment on for heroin and benzodiazepine dependence.Patient is without children,domiciled and currently employed.Mr Guerrero is a [employer] .Discharged in 1991 after 20 years of service.Never exposed to combat situations. Substance Abuse History: Confirmed by patient in this session.Details in current [facility] report : Smoking history: Never smoked. Aproximately how many cigarettes per day: 0. Cigars Per Day: 0. Hx Chewing Tobacco Use: No. Initiated information on smoking cessation: No. 'Breaking Loose' booklet given : 06/20/17. - Substance & Tx. History. Hx Alcohol Use: No. Hx Substance Use: Yes. Substance Use Type: Heroin, Opiates, Prescribed, Tranquilizers. Hx Substance Use Treatment: Yes. - Substances Abused. Heroin. Route: Inhalation. Frequency: Daily. Amount used: 10-20 BAGS. Age of first use: 17. Date of Last Use: 06/20/17. Non-Rx Methadone. Route: Oral. Frequency: 1- 3 times last 30 days. Amount used: 50MG. Age of first use: 17. Date of Last Use: 06/18/17 Medical History: Obesity,GERD and dyslipidemia. Psychiatric History: Patient denies history of psychiatric hospitalizations or suicide attempts.Mr Guerrero used to see a psychiatrist at the [facility] for the management of chronic insomnia.Medicated in the past with seroquel + trazodone. Physical/Sexual Abuse/Trauma History: Patient denies. Additional Comment: Urine Drug Screen Results: OPI-Opiates, BZO-Benzodiazepines , MTD-Methadone, OXY-Oxycodone.Noted. Mental Status Exam - Mental Status Exam Alert and Oriented to: Time, Place, Person Cognitive Function: Good Patient Appearance: Well Groomed (obese) Mood: Withdrawn, Hopeful, Euthymic Affect: Appropriate, Normal Range Patient Behavior: Fatigued, Appropriate, Cooperative Speech Pattern: Clear Voice Loudness: Normal Thought Process: Intact, Goal Oriented Thought Disorder: Not Present Hallucinations: Denies Suicidal Ideation: Denies Homicidal Ideation: Denies Insight/Judgement: Poor Sleep: Well (on his current dose of diazepam) Appetite: Good Muscle strength/Tone: Normal Gait/Station: Normal Psychiatric Findings - Problem List ([place] 1, 2,3) (1) Opioid dependence with withdrawal Current Visit: Yes Status: Acute (2) Benzodiazepine abuse Current Visit: Yes Status: Acute (3) Insomnia Current Visit: Yes Status: Acute - Initial Treatment Plan Initial Treatment Plan: Records revisited.Sleep hygiene discussed.Psychoeducation.Detoxification in progress.Mr Guerrero requests that seroquel + trazodone be held until completion of valium protocol.Patient indicates that he sleeps well for the time being and he is concerned about oversedation.Will continue to observe treatment course.
[2017-06-21] MEDS: THIAMINE HCL 100 MG TABLET (FP) PO SCH (22:16)
[2017-06-22] MEDS: diazePAM 5 MG TABLET PO PRN ×5 (05:28→22:29)
[2017-06-22] MEDS ORDERED: METHADONE HCL 5 MG TABLET (FOR DETOX USE ONLY) PO ONE (10:00)
[2017-06-22] MEDS: PRENATAL VITAMINS W/ FOLIC ACID TABLET (FP) PO SCH (10:15)
[2017-06-22] MEDS: PANTOPRAZOLE 40 MG TABLET (FP) PO SCH (10:15)
[2017-06-22] MEDS: NAPROXEN 500 MG TABLET (FP) PO SCH ×2 (10:15→22:27)
--- NOTE | 2017-06-22 10:40 | PN ---
S COWS - Scale Resting Pulse: 0= DE 80 or Below Sweatin= Chills/Flushing Restless Observation: 3= Extraneous Movement Pupil Size: 2= Moderately Dilated Bone or Joint Aches: 4=Acute Joint/Muscle Pain Runny Nose/ Eye Tearin= Nasal Congestion GI Upset > 30mins: 0= None Tremor Observation of Outstretched Hands: 2= Slight Tremor Visible Yawning Observation: 2= >3x During Session Anxiety or Irritability: 2=Irritable/Anxious Goose Flesh Skin: 0=Smooth Skin COWS Score: 17 [facility] Progress Note (SOAP) Subjective: PT C/O "I DON'T FEEL OK TODAY"..ANXIETY,SWEATS,IRRITABILITY,LOWER EXTREMITIES MUSCLE ACHES AND CRAMPS,NASAL CONGESTION. Objective: 06/22/17 10:39 Vital Signs Temperature 96.2 F L 06/22/17 09:17 Pulse Rate 77 06/22/17 09:17 Respiratory Rate 18 06/22/17 09:17 Blood Pressure 146/100 06/22/17 09:17 O2 Sat by Pulse Oximetry (%) Laboratory Last Values WBC 9.8 K/mm3 (4.0-10.0) 06/21/17 07:00 RBC 4.99 M/mm3 (4.00-5.60) 06/21/17 07:00 Hgb 14.9 GM/dL (11.7-16.9) 06/21/17 07:00 Hct 44.1 % (35.4-49) 06/21/17 07:00 MCV 88.2 fl (80-96) 06/21/17 07:00 MCH 29.7 pg (25.7-33.7) 06/21/17 07:00 MCHC 33.7 g/dl (32.0-35.9) 06/21/17 07:00 RDW 14.4 % (11.9-15.9) 06/21/17 07:00 Plt Count 263 K/MM3 (134-434) 06/21/17 07:00 MPV 8.3 fl (7.5-11.1) 06/21/17 07:00 Sodium 143 mmol/L (136-145) 06/21/17 07:00 Potassium 4.0 mmol/L (3.5-5.1) 06/21/17 07:00 Chloride 107 mmol/L (98-107) 06/21/17 07:00 Carbon Dioxide 28 mmol/L (21-32) 06/21/17 07:00 Anion Gap 8 (8-16) 06/21/17 07:00 BUN 23 mg/dL (7-18) H D 06/21/17 07:00 Creatinine 0.9 mg/dL (0.7-1.3) 06/21/17 07:00 Creat Clearance w eGFR > 60 (>60) 06/21/17 07:00 Random Glucose 69 mg/dL (74-106) L D 06/21/17 07:00 Calcium 8.2 mg/dL (8.5-10.1) L 06/21/17 07:00 Total Bilirubin 0.3 mg/dL (0.2-1.0) D 06/21/17 07:00 AST 18 U/L (15-37) D 06/21/17 07:00 ALT 22 U/L (12-78) 06/21/17 07:00 Alkaline Phosphatase 68 U/L (45-117) D 06/21/17 07:00 Total Protein 7.3 g/dl (6.4-8.2) 06/21/17 07:00 Albumin 3.8 g/dl (3.4-5.0) 06/21/17 07:00 Urine Color Yellow 06/20/17 20:05 Urine Appearance Turbid 06/20/17 20:05 Urine pH 5.0 (5.0-8.0) 06/20/17 20:05 Ur Specific [place] 1.026 (1.001-1.035) 06/20/17 20:05 Urine Protein Negative (NEGATIVE) 06/20/17 20:05 Urine Glucose (UA) Negative (NEGATIVE) 06/20/17 20:05 Urine Ketones Negative (NEGATIVE) 06/20/17 20:05 Urine Blood Negative (NEGATIVE) 06/20/17 20:05 Urine Nitrite Negative (NEGATIVE) 06/20/17 20:05 Urine Bilirubin Negative (<2.0 mg/dL) 06/20/17 20:05 Urine Urobilinogen Negative mg/dL (0.2-1.0) 06/20/17 20:05 Ur Leukocyte Esterase Negative (NEGATIVE) 06/20/17 20:05 Assessment: 06/22/17 10:40 WITHDRAWAL SX Plan: CONTINUE DETOX BACLOFEN DIRECTED FLONASE NASAL SPRAY DIRECTED TINACTIN CREAM DIRECTED
[2017-06-22] MEDS: FLUTICASONE PROP 0.05% 16 GM NASAL SPRAY NS SCH ×2 (12:30→22:27)
[2017-06-22] MEDS: TOLNAFTATE 1% CREAM 15 GM TUBE TP SCH ×2 (12:31→22:27)
--- NOTE | 2017-06-22 13:07 | PN ---
[facility] Progress Note Note: Psychiatry Attending's note Called by SILVIA Golden. Issue : patient requests seroquel + trazodone. Chart reviewed.Treatment plan revisited. Met with patient. Mr Guerrero confirms wish to restart seroquel and trazodone. Side effects/benefits of both drugs are discussed with patient. Made aware, in particular,of risk of oversedation,metabolic syndrome and priapism. Patient endorses these medications as effective + well tolerated in the past. Consent (verbal) given. Seroquel 100 mg po hs Trazodone 50 mg po hs Ordered.Will follow.
[2017-06-22] MEDS: BACLOFEN 10 MG TABLET (FP) PO SCH ×2 (14:19→22:28)
[2017-06-22] MEDS: THIAMINE HCL 100 MG TABLET (FP) PO SCH (22:27)
[2017-06-22] MEDS: QUEtiapine FUMARATE 100 MG TABLET (FP) PO SCH (22:27)
[2017-06-22] MEDS: traZODone HCL 50 MG TABLET (FP) PO SCH (22:28)
[2017-06-23] MEDS: BACLOFEN 10 MG TABLET (FP) PO SCH ×3 (06:53→22:30)
[2017-06-23] MEDS: diazePAM 5 MG TABLET PO PRN (09:30)
[2017-06-23] MEDS ORDERED: METHADONE HCL 5 MG TABLET (FOR DETOX USE ONLY) PO ONE (10:00)
[2017-06-23] MEDS: PRENATAL VITAMINS W/ FOLIC ACID TABLET (FP) PO SCH (10:08)
[2017-06-23] MEDS: FLUTICASONE PROP 0.05% 16 GM NASAL SPRAY NS SCH ×2 (10:08→22:31)
[2017-06-23] MEDS: NAPROXEN 500 MG TABLET (FP) PO SCH ×2 (10:09→22:30)
[2017-06-23] MEDS: PANTOPRAZOLE 40 MG TABLET (FP) PO SCH (10:09)
[2017-06-23] MEDS: TOLNAFTATE 1% CREAM 15 GM TUBE TP SCH ×2 (10:11→22:31)
--- NOTE | 2017-06-23 15:53 | PN ---
[facility] Progress Note (SOAP) Subjective: Nausea (mild), Sweating, Body Aches. Objective: PATIENT A & O X 3, OBSERVED AMBULATING ON UNIT. NO ACUTE DISTRESS. 06/23/17 15:52 Vital Signs Temperature 96.7 F L 06/23/17 13:06 Pulse Rate 68 06/23/17 13:06 Respiratory Rate 18 06/23/17 13:06 Blood Pressure 106/68 06/23/17 13:06 O2 Sat by Pulse Oximetry (%) Laboratory Tests 06/20/17 06/21/17 06/21/17 20:05 07:00 07:00 WBC 9.8 RBC 4.99 Hgb 14.9 Hct 44.1 MCV 88.2 MCH 29.7 MCHC 33.7 RDW 14.4 Plt Count 263 MPV 8.3 Sodium 143 Potassium 4.0 Chloride 107 Carbon Dioxide 28 Anion Gap 8 BUN 23 H D Creatinine 0.9 Creat Clearance w eGFR > 60 Random Glucose 69 L D Calcium 8.2 L Total Bilirubin 0.3 D AST 18 D ALT 22 Alkaline Phosphatase 68 D Total Protein 7.3 Albumin 3.8 Urine Color Yellow Urine Appearance Turbid Urine pH 5.0 Ur Specific [place] 1.026 Urine Protein Negative Urine Glucose (UA) Negative Urine Ketones Negative Urine Blood Negative Urine Nitrite Negative Urine Bilirubin Negative Urine Urobilinogen Negative Ur Leukocyte Esterase Negative RPR Titer 06/21/17 07:00 WBC RBC Hgb Hct MCV MCH MCHC RDW Plt Count MPV Sodium Potassium Chloride Carbon Dioxide Anion Gap BUN Creatinine Creat Clearance w eGFR Random Glucose Calcium Total Bilirubin AST ALT Alkaline Phosphatase Total Protein Albumin Urine Color Urine Appearance Urine pH Ur Specific [place] Urine Protein Urine Glucose (UA) Urine Ketones Urine Blood Urine Nitrite Urine Bilirubin Urine Urobilinogen Ur Leukocyte Esterase RPR Titer Nonreactive LABS NOTED. Assessment: 06/23/17 15:52 WITHDRAWAL SYMPTOMS. Plan: CONTINUE DETOX. INCREASE DAILY PO FLUID INTAKE.
[2017-06-23] MEDS: ACETAMINOPHEN 325 MG TABLET (FP) PO PRN (19:21)
[2017-06-23] MEDS: THIAMINE HCL 100 MG TABLET (FP) PO SCH (22:30)
[2017-06-23] MEDS: QUEtiapine FUMARATE 100 MG TABLET (FP) PO SCH (22:30)
[2017-06-23] MEDS: traZODone HCL 50 MG TABLET (FP) PO SCH (22:31)
[2017-06-24] MEDS: BACLOFEN 10 MG TABLET (FP) PO SCH ×3 (06:07→22:23)
[2017-06-24] MEDS ORDERED: METHADONE HCL 10 MG TABLET (FOR DETOX USE ONLY) PO ONE (10:00)
[2017-06-24] MEDS: TOLNAFTATE 1% CREAM 15 GM TUBE TP SCH ×2 (10:19→22:24)
[2017-06-24] MEDS: FLUTICASONE PROP 0.05% 16 GM NASAL SPRAY NS SCH ×2 (10:19→22:24)
[2017-06-24] MEDS: NAPROXEN 500 MG TABLET (FP) PO SCH ×2 (10:19→22:23)
[2017-06-24] MEDS: PANTOPRAZOLE 40 MG TABLET (FP) PO SCH (10:19)
[2017-06-24] MEDS: PRENATAL VITAMINS W/ FOLIC ACID TABLET (FP) PO SCH (10:19)
--- NOTE | 2017-06-24 10:59 | PN ---
[facility] Progress Note (SOAP) Subjective: SLIGHT ANXIETY,IRRITABILITY.ALERT O X 3. OOB IN NO ACUTE DISTRESS. Objective: 06/24/17 10:59 Vital Signs Temperature 97.6 F 06/24/17 09:01 Pulse Rate 71 06/24/17 09:01 Respiratory Rate 18 06/24/17 09:01 Blood Pressure 143/94 06/24/17 09:01 O2 Sat by Pulse Oximetry (%) Assessment: 06/24/17 10:59 WITHDRAWAL SX Plan: CONTINUE DETOX
[2017-06-24] MEDS: ACETAMINOPHEN 325 MG TABLET (FP) PO PRN ×2 (14:24→22:25)
--- NOTE | 2017-06-24 19:04 | PN ---
[facility] Progress Note Note: Psychiatry Attending's note : Approached by patient. Complaint : mild sedation. Mr Guerrero requests lower dose of seroquel. Specifically asks for 50 mg po at bedtime. Plan : Discontinue seroquel 100 mg po hs. Seroquel 50 mg po hs.Ordered.
[2017-06-24] MEDS: traZODone HCL 50 MG TABLET (FP) PO SCH (22:23)
[2017-06-24] MEDS: QUEtiapine FUMARATE 50 MG TABLET PO SCH (22:23)
[2017-06-24] MEDS: THIAMINE HCL 100 MG TABLET (FP) PO SCH (22:23)
[2017-06-25] MEDS: BACLOFEN 10 MG TABLET (FP) PO SCH ×3 (05:26→22:08)
[2017-06-25] MEDS ORDERED: METHADONE HCL 5 MG TABLET (FOR DETOX USE ONLY) PO ONE (06:00)
[2017-06-25] MEDS: ACETAMINOPHEN 325 MG TABLET (FP) PO PRN ×2 (07:51→14:00)
[2017-06-25] MEDS: PANTOPRAZOLE 40 MG TABLET (FP) PO SCH (13:14)
[2017-06-25] MEDS: FLUTICASONE PROP 0.05% 16 GM NASAL SPRAY NS SCH ×2 (13:14→22:08)
[2017-06-25] MEDS: NAPROXEN 500 MG TABLET (FP) PO SCH ×2 (13:14→22:08)
[2017-06-25] MEDS: METHYL SALICYLATE/MENTHOL OINT 30 GM TUBE TP SCH ×2 (13:14→23:07)
[2017-06-25] MEDS: PRENATAL VITAMINS W/ FOLIC ACID TABLET (FP) PO SCH (13:14)
[2017-06-25] MEDS: TOLNAFTATE 1% CREAM 15 GM TUBE TP SCH ×2 (13:14→22:08)
--- NOTE | 2017-06-25 17:10 | PN ---
[facility] Progress Note (SOAP) Subjective: Body Aches, Anxious, Sweating. Objective: PATIENT A & O X 3, OBSERVED AMBULATING ON UNIT. NO ACUTE DISTRESS. 06/25/17 17:09 Vital Signs Temperature 96.6 F L 06/25/17 15:24 Pulse Rate 76 06/25/17 15:24 Respiratory Rate 20 06/25/17 15:24 Blood Pressure 142/92 06/25/17 15:24 O2 Sat by Pulse Oximetry (%) Laboratory Tests 06/20/17 06/21/17 06/21/17 20:05 07:00 07:00 WBC 9.8 RBC 4.99 Hgb 14.9 Hct 44.1 MCV 88.2 MCH 29.7 MCHC 33.7 RDW 14.4 Plt Count 263 MPV 8.3 Sodium 143 Potassium 4.0 Chloride 107 Carbon Dioxide 28 Anion Gap 8 BUN 23 H D Creatinine 0.9 Creat Clearance w eGFR > 60 Random Glucose 69 L D Calcium 8.2 L Total Bilirubin 0.3 D AST 18 D ALT 22 Alkaline Phosphatase 68 D Total Protein 7.3 Albumin 3.8 Urine Color Yellow Urine Appearance Turbid Urine pH 5.0 Ur Specific [place] 1.026 Urine Protein Negative Urine Glucose (UA) Negative Urine Ketones Negative Urine Blood Negative Urine Nitrite Negative Urine Bilirubin Negative Urine Urobilinogen Negative Ur Leukocyte Esterase Negative RPR Titer 06/21/17 07:00 WBC RBC Hgb Hct MCV MCH MCHC RDW Plt Count MPV Sodium Potassium Chloride Carbon Dioxide Anion Gap BUN Creatinine Creat Clearance w eGFR Random Glucose Calcium Total Bilirubin AST ALT Alkaline Phosphatase Total Protein Albumin Urine Color Urine Appearance Urine pH Ur Specific [place] Urine Protein Urine Glucose (UA) Urine Ketones Urine Blood Urine Nitrite Urine Bilirubin Urine Urobilinogen Ur Leukocyte Esterase RPR Titer Nonreactive LABS NOTED. Assessment: 06/25/17 17:09 WITHDRAWAL SYMPTOMS. Plan: CONTINUE DETOX. INCREASE DAILY PO FLUID INTAKE.
[2017-06-25] MEDS: traZODone HCL 50 MG TABLET (FP) PO SCH (22:08)
[2017-06-25] MEDS: THIAMINE HCL 100 MG TABLET (FP) PO SCH (22:08)
[2017-06-25] MEDS: QUEtiapine FUMARATE 50 MG TABLET PO SCH (22:08)
[2017-06-26] MEDS: BACLOFEN 10 MG TABLET (FP) PO SCH ×3 (05:41→23:43)
[2017-06-26] MEDS: ACETAMINOPHEN 325 MG TABLET (FP) PO PRN ×3 (05:41→22:05)
[2017-06-26] MEDS: PRENATAL VITAMINS W/ FOLIC ACID TABLET (FP) PO SCH (10:16)
[2017-06-26] MEDS: NAPROXEN 500 MG TABLET (FP) PO SCH (10:16)
[2017-06-26] MEDS: TOLNAFTATE 1% CREAM 15 GM TUBE TP SCH ×2 (10:16→22:04)
[2017-06-26] MEDS: PANTOPRAZOLE 40 MG TABLET (FP) PO SCH (10:16)
[2017-06-26] MEDS: FLUTICASONE PROP 0.05% 16 GM NASAL SPRAY NS SCH ×2 (10:16→22:04)
[2017-06-26] MEDS: METHYL SALICYLATE/MENTHOL OINT 30 GM TUBE TP SCH ×2 (10:17→22:04)
--- NOTE | 2017-06-26 12:03 | PN ---
[facility] Progress Note (SOAP) Subjective: irritable body aches Objective: 06/26/17 12:02 Vital Signs Temperature 96.4 F L 06/26/17 09:56 Pulse Rate 70 06/26/17 09:56 Respiratory Rate 18 06/26/17 09:56 Blood Pressure 138/86 06/26/17 09:56 O2 Sat by Pulse Oximetry (%) aaox3 ambulating no acute distress Assessment: 06/26/17 12:02 withdrawal sx Plan: continue detox d/c in am
[2017-06-26] MEDS: IBUPROFEN 400 MG TABLET (FP) PO PRN (18:00)
[2017-06-26] MEDS: THIAMINE HCL 100 MG TABLET (FP) PO SCH (22:04)
[2017-06-26] MEDS: traZODone HCL 50 MG TABLET (FP) PO SCH (22:04)
[2017-06-26] MEDS: QUEtiapine FUMARATE 50 MG TABLET PO SCH (22:04)
[2017-06-27] MEDS: ACETAMINOPHEN 325 MG TABLET (FP) PO PRN (05:08)
[2017-06-27] MEDS: BACLOFEN 10 MG TABLET (FP) PO SCH (05:08)
[2017-06-27 09:12] VITALS: BP 142/92; PULSE 87; TEMP 95.6
[2017-06-27] MEDS: PRENATAL VITAMINS W/ FOLIC ACID TABLET (FP) PO SCH (10:01)
[2017-06-27] MEDS: PANTOPRAZOLE 40 MG TABLET (FP) PO SCH (10:01)
[2017-06-27] MEDS: IBUPROFEN 400 MG TABLET (FP) PO PRN (10:01)
[2017-06-27] MEDS: METHYL SALICYLATE/MENTHOL OINT 30 GM TUBE TP SCH (10:02)
[2017-06-27] MEDS: FLUTICASONE PROP 0.05% 16 GM NASAL SPRAY NS SCH (10:02)
[2017-06-27] MEDS: TOLNAFTATE 1% CREAM 15 GM TUBE TP SCH (10:02)
--- NOTE | 2017-06-27 10:40 | DS ---
[facility] Detox Discharge Summary Admission Date: 06/20/17 Discharge Date: 06/27/17 - History Present History: Opioid Dependence Additional Comments: DETOX COMPLETED. ALERT O X 3. NAD. REFERRED TO REHAB TODAY. - Physical Exam Results Vital Signs: Vital Signs Temperature 95.6 F L 06/27/17 09:12 Pulse Rate 87 06/27/17 09:12 Respiratory Rate 06/27/17 09:12 Blood Pressure 142/92 06/27/17 09:12 O2 Sat by Pulse Oximetry (%) - Treatment Hospital Course: Detox Protocol Followed, Detoxed Safely, Responded well, Discharged Condition Good, Rehab Referral Accepted Patient has Accepted a Rehab Referral to: [facility] - Medication Discharge Medications: Ambulatory Orders Quetiapine Fumarate [Seroquel -] 50 mg PO HS #30 tablet 06/24/17 - Diagnosis (1) Chronic back pain Current Visit: Yes Status: Chronic Qualifiers: Back pain location: low back pain Back pain laterality: left Sciatica presence: with sciatica Sciatica laterality: sciatica of left side Qualified Code(s): M54.42 - Lumbago with sciatica, left side; G89.29 - Other chronic pain; G89.29 - Other chronic pain (2) GERD (gastroesophageal reflux disease) Current Visit: Yes Status: Chronic Qualifiers: Esophagitis presence: without esophagitis Qualified Code(s): K21.9 - Gastro -esophageal reflux disease without esophagitis (3) Obesity Current Visit: Yes Status: Chronic Qualifiers: Obesity type: due to excess calories Obesity classification: adult class 2 (BMI 35 - 39.9) Serious obesity comorbidity presence: without serious comorbidity Body mass index: BMI 35.0-35.9 Qualified Code(s): E66.09 - Other obesity due to excess calories; Z68.35 - Body mass index (BMI) 35.0-35.9, adult; Z68.35 - Body mass index (BMI) 35.0-35.9, adult (4) Opioid dependence with withdrawal Current Visit: Yes Status: Acute (5) Dehydration Current Visit: Yes Status: Acute (6) Insomnia Current Visit: Yes Status: Acute (7) Nasal congestion Current Visit: Yes Status: Acute (8) Tinea pedis Current Visit: Yes Status: Acute Qualifiers: Laterality: bilateral Qualified Code(s): B35.3 - Tinea pedis - AMA Did Patient Leave Against Medical Advice: No
--- NOTE | 2017-06-27 10:52 | PN ---
[facility] Progress Note (SOAP) Subjective: DETOX COMPLETED. ALERT O X 3. PT HAS A BED IN REHAB [facility] TODAY. Objective: 06/27/17 10:51 Vital Signs Temperature 95.6 F L 06/27/17 09:12 Pulse Rate 87 06/27/17 09:12 Respiratory Rate 18 06/27/17 09:12 Blood Pressure 142/92 06/27/17 09:12 O2 Sat by Pulse Oximetry (%) Laboratory Last Values WBC 9.8 K/mm3 (4.0-10.0) 06/21/17 07:00 RBC 4.99 M/mm3 (4.00-5.60) 06/21/17 07:00 Hgb 14.9 GM/dL (11.7-16.9) 06/21/17 07:00 Hct 44.1 % (35.4-49) 06/21/17 07:00 MCV 88.2 fl (80-96) 06/21/17 07:00 MCH 29.7 pg (25.7-33.7) 06/21/17 07:00 MCHC 33.7 g/dl (32.0-35.9) 06/21/17 07:00 RDW 14.4 % (11.9-15.9) 06/21/17 07:00 Plt Count 263 K/MM3 (134-434) 06/21/17 07:00 MPV 8.3 fl (7.5-11.1) 06/21/17 07:00 Sodium 143 mmol/L (136-145) 06/21/17 07:00 Potassium 4.0 mmol/L (3.5-5.1) 06/21/17 07:00 Chloride 107 mmol/L (98-107) 06/21/17 07:00 Carbon Dioxide 28 mmol/L (21-32) 06/21/17 07:00 Anion Gap 8 (8-16) 06/21/17 07:00 BUN 23 mg/dL (7-18) H D 06/21/17 07:00 Creatinine 0.9 mg/dL (0.7-1.3) 06/21/17 07:00 Creat Clearance w eGFR > 60 (>60) 06/21/17 07:00 Random Glucose 69 mg/dL (74-106) L D 06/21/17 07:00 Calcium 8.2 mg/dL (8.5-10.1) L 06/21/17 07:00 Total Bilirubin 0.3 mg/dL (0.2-1.0) D 06/21/17 07:00 AST 18 U/L (15-37) D 06/21/17 07:00 ALT 22 U/L (12-78) 06/21/17 07:00 Alkaline Phosphatase 68 U/L (45-117) D 06/21/17 07:00 Total Protein 7.3 g/dl (6.4-8.2) 06/21/17 07:00 Albumin 3.8 g/dl (3.4-5.0) 06/21/17 07:00 Urine Color Yellow 06/20/17 20:05 Urine Appearance Turbid 06/20/17 20:05 Urine pH 5.0 (5.0-8.0) 06/20/17 20:05 Ur Specific [place] 1.026 (1.001-1.035) 06/20/17 20:05 Urine Protein Negative (NEGATIVE) 06/20/17 20:05 Urine Glucose (UA) Negative (NEGATIVE) 06/20/17 20:05 Urine Ketones Negative (NEGATIVE) 06/20/17 20:05 Urine Blood Negative (NEGATIVE) 06/20/17 20:05 Urine Nitrite Negative (NEGATIVE) 06/20/17 20:05 Urine Bilirubin Negative (<2.0 mg/dL) 06/20/17 20:05 Urine Urobilinogen Negative mg/dL (0.2-1.0) 06/20/17 20:05 Ur Leukocyte Esterase Negative (NEGATIVE) 06/20/17 20:05 RPR Titer Nonreactive (NONREACTIVE) 06/21/17 07:00 Assessment: 06/27/17 10:51 MEDICALLY STABLE Plan: D/C PT TO REHAB TODAY.
== END 2017-06-27 11:25 | disposition other institution (70) | DRG 773 ==
LOC: YASAS 12:51 → Y3N 16:49
PROVIDERS: ADMIT Internal Medicine; ATTEND Internal Medicine
PROC: HZ2ZZZZ Detoxification Services for Substance Abuse Treatment (ICD-10-PCS; principal; 2017-06-20)
DX: F11.23 Opioid dependence with withdrawal (principal); F13.10 Sedative, hypnotic or anxiolytic abuse, uncomplicated; G47.00 Insomnia, unspecified; E86.0 Dehydration; K21.9 Gastro-esophageal reflux disease without esophagitis; B35.3 Tinea pedis; M54.42 Lumbago with sciatica, left side; E66.9 Obesity, unspecified; Z68.35 Body mass index [BMI] 35.0-35.9, adult; R09.81 Nasal congestion
CPT/HCPCS: 36415; 80053; 81003; 85027; 86593; 93005; 93010; J0475

== ENCOUNTER 2017-06-27 11:31 | Inpatient (IN) | payer OTHER ==
[2017-06-27] MEDS ORDERED: LOPERAMIDE HCL 2 MG CAPSULE PO PRN (12:25)
[2017-06-27] MEDS ORDERED: P-EPHED 60MG/TRIPROLIDI 2.5MG TABLET PO PRN (12:25)
[2017-06-27] MEDS ORDERED: guaiFENesin/D-METHORPHAN HB 10 ML UNIT-DOSE CUPS PO PRN (12:25)
[2017-06-27] MEDS ORDERED: MAGNESIUM CITRATE 300 ML BOTTLE PO PRN (12:25)
[2017-06-27] MEDS ORDERED: MENTHOL/PHENOL 1 EACH UD MM PRN (12:25)
[2017-06-27] MEDS ORDERED: hydrOXYzine PAMOATE 50 MG CAPSULE (FP) PO PRN (12:25)
[2017-06-27] MEDS ORDERED: MAGNESIUM HYDROX 2400MG/30ML ORAL SUSPENSION 30 ML CUP PO PRN (12:25)
--- NOTE | 2017-06-27 12:33 | HP ---
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 Psychiatric History: Patient denies history of psychiatric treatment. However that he has been seeing a psychiatrist for a few months at the [facility] for the treatment of insomnia. He is prescribed Trazadone 50 mg po HS and Seroquel 50 mg o HS. Denies history of previous psychiatric hospitalization or suicidal attempt. At present, reports doing well but sleeping poorly. Physical/Sexual Abuse/Trauma History: Denies history of emotional, physical or sexual abuse as well as DV relationship. 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 Discharge was honorable Vital Signs: Vital Signs - 24 hr 06/27/17 12:01 Temperature 98.2 F Pulse Rate 87 Respiratory 18 Rate Blood Pressure 127/88 Allergies/Adverse Reactions: Allergies Allergy/AdvReac Type Severity Reaction Status Date / Time No Known Allergies Allergy Verified 06/27/17 11:58 Date of last physical exam: 06/20/17 Concur with the findings of this exam: Yes - Substance Abuse/Tx History Hx Alcohol Use: No Hx Substance Use: Yes Substance Use Type: Heroin (Started using heroin at age 17, consumes 10-20 bags daily. Last used on 06/20/17), Opiates (Sarted using street methadone at age 17, consumes 50 mg 1-3 times in the last 30 days. Last used on 06/18/17) Hx Substance Use Treatment: Yes (4 previous inpt detox & one inpt rehab admissions @ [facility]) Mental Status Exam - Mental Status Exam Alert and Oriented to: Time, Place, Person Cognitive Function: Fair Patient Appearance: Well Groomed Mood: Hopeful, Euthymic Patient Behavior: Cooperative Speech Pattern: Clear Voice Loudness: Normal Thought Process: Intact, Goal Oriented Thought Disorder: Not Present Hallucinations: Denies Suicidal Ideation: Denies Homicidal Ideation: Denies Insight/Judgement: Fair Sleep: Poorly Appetite: Good Muscle strength/Tone: Normal Gait/Station: Normal Psychiatric Findings - Problem List ([place] 1, 2,3) (1) Opioid dependence Current Visit: Yes Status: Acute (2) Substance-induced sleep disorder Current Visit: Yes Status: Acute (3) Chronic back pain Current Visit: No Status: Chronic Qualifiers: Back pain location: low back pain Back pain laterality: left Sciatica presence: with sciatica Sciatica laterality: sciatica of left side Qualified Code(s): M54.42 - Lumbago with sciatica, left side; G89.29 - Other chronic pain; G89.29 - Other chronic pain (4) GERD (gastroesophageal reflux disease) Current Visit: No Status: Chronic Qualifiers: Esophagitis presence: without esophagitis Qualified Code(s): K21.9 - Gastro -esophageal reflux disease without esophagitis (5) Obesity Current Visit: No Status: Chronic Qualifiers: Obesity type: due to excess calories Obesity classification: adult class 2 (BMI 35 - 39.9) Serious obesity comorbidity presence: without serious comorbidity Body mass index: BMI 35.0-35.9 Qualified Code(s): E66.09 - Other obesity due to excess calories; Z68.35 - Body mass index (BMI) 35.0-35.9, adult; Z68.35 - Body mass index (BMI) 35.0-35.9, adult - Initial Treatment Plan Initial Treatment Plan: 1) Start Trazadone 100 mg po HS and Belsomra 10 mg po HS prn for insomnia. 2) Monitor progress
[2017-06-27] MEDS: IBUPROFEN 400 MG TABLET (FP) PO PRN (14:52)
[2017-06-27] MEDS: BACLOFEN 10 MG TABLET (FP) PO SCH ×2 (14:53→21:15)
[2017-06-27] MEDS: THIAMINE HCL 100 MG TABLET (FP) PO SCH (21:15)
[2017-06-27] MEDS: MELATONIN 5 MG TABLETS PO PRN (21:15)
[2017-06-27] MEDS ORDERED: traZODone HCL 100 MG TABLET (FP) PO SCH (22:00)
[2017-06-27] MEDS ORDERED: SUVOREXANT 10 MG TABLET PO PRN (22:00)
[2017-06-28] MEDS: BACLOFEN 10 MG TABLET (FP) PO SCH ×3 (06:22→21:18)
[2017-06-28] MEDS: IBUPROFEN 400 MG TABLET (FP) PO PRN (06:23)
--- NOTE | 2017-06-28 09:48 | PN ---
Psychiatric Progress Note Vital Signs: Vital Signs Period Temp Pulse Resp BP Sys/Sheehan Pulse Ox Last 24 Hr 97.5 F-98.2 F 75-87 18-20 127-145/85-88 Date of Session: 06/28/17 Chief Complaint:: Insomnia HPI: Patient addressing Opioid Dependence comorbid with Substance-Induced Sleep Disorder ROS: Chronic back pain, GERD, Obesity Current Medications: Active Medications Generic Name Dose Route Start Last Admin Trade Name Freq PRN Reason Stop Dose Admin Acetaminophen 650 mg 06/27/17 12:25 Tylenol - PO Q4H PRN FEVER Al Hydroxide/Mg Hydroxide 30 ml 06/27/17 12:25 Mylanta Oral Suspension - PO Q6H PRN DYSPEPSIA Baclofen 10 mg 06/27/17 14:00 06/28/17 06:22 Lioresal - PO 10 mg TID SUZAN Administration Eucalyptus/Menthol/Phenol/Sorbitol 1 each 06/27/17 12:25 Cepastat Lozenge - MM Q4H PRN SORE THROAT Guaifenesin 10 ml 06/27/17 12:25 Robitussin Dm - PO Q6H PRN COUGH Hydroxyzine Pamoate 50 mg 06/27/17 12:25 Vistaril - PO Q4H PRN AGITATION Ibuprofen 400 mg 06/27/17 12:25 06/28/17 06:23 Motrin - PO 400 mg Q6H PRN Administration Pain Level 4-6 Loperamide HCl 4 mg 06/27/17 12:25 Imodium - PO Q6H PRN DIARRHEA Magnesium Citrate 300 ml 06/27/17 12:25 Citroma - PO Q48H PRN CONSTIPATION Magnesium Hydroxide 30 ml 06/27/17 12:25 Milk Of Magnesia - PO DAILY PRN CONSTIPATION Melatonin 5 mg 06/27/17 22:00 06/27/17 21:15 Melatonin PO 5 mg HS PRN Administration INSOMNIA Multivit/Folic Acid/Iron 1 tab 06/28/17 10:00 Vitamins (Sjr) - PO DAILY SUZAN Pseudoephedrine/Triprolidine 1 combo 06/27/17 12:25 Actifed - PO TID PRN NASAL CONGESTION Quetiapine Fumarate 50 mg 06/28/17 22:00 Seroquel - PO HS SUZAN Suvorexant 10 mg 06/27/17 22:00 06/27/17 21:15 Belsomra PO 06/30/17 21:59 10 mg HS PRN Administration INSOMNIA Thiamine HCl 100 mg 06/27/17 22:00 06/27/17 21:15 Vitamin B1 - PO 100 mg HS SUZAN Administration Trazodone HCl 50 mg 06/28/17 22:00 Desyrel - PO HS SUZAN Medication(s) Change(s): 1) Decrease Trazdone dosage to 50 mg po HS. 2) Start Seroquel 50 mg po HS Current Side Effect: No Lab tests ordered: Yes Lab tests reviewed: Yes Provider note:: Patient reports experiencing difficulty to sleep. 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 He insists on getting the sleeping regimen he was on before admission and while in detox. He wants Seroquel 50 mg po HS and Trazadone 50 mg po HS and claims that is what works for him. Again, side-effects of Seroquel including but not limited to diabetes mellitus, metabolic syndrome, tardive dyskinesia discussed with patient and he is willig to assume the risk saying:" sleeping well is more important to me". Total face to face time:: 15 Mental Status Exam - Mental Status Exam Alert and Oriented to: Time, Place, Person Cognitive Function: Fair Patient Appearance: Well Groomed Mood: Hopeful, Euthymic Affect: Appropriate Patient Behavior: Cooperative Speech Pattern: Clear Voice Loudness: Normal Thought Process: Intact, Goal Oriented Thought Disorder: Not Present Hallucinations: Denies Suicidal Ideation: Denies Homicidal Ideation: Denies Insight/Judgement: Fair Sleep: Poorly Appetite: Good Muscle strength/Tone: Normal Gait/Station: Normal Psychiatric Treatment Plan - Problem List (1) Opioid dependence Current Visit: Yes (2) Substance-induced sleep disorder Current Visit: Yes (3) Chronic back pain Current Visit: No Qualifiers: Back pain location: low back pain Back pain laterality: left Sciatica presence: with sciatica Sciatica laterality: sciatica of left side Qualified Code(s): M54.42 - Lumbago with sciatica, left side; G89.29 - Other chronic pain; G89.29 - Other chronic pain (4) GERD (gastroesophageal reflux disease) Current Visit: No Qualifiers: Esophagitis presence: without esophagitis Qualified Code(s): K21.9 - Gastro -esophageal reflux disease without esophagitis (5) Obesity Current Visit: No Qualifiers: Obesity type: due to excess calories Obesity classification: adult class 2 (BMI 35 - 39.9) Serious obesity comorbidity presence: without serious comorbidity Body mass index: BMI 35.0-35.9 Qualified Code(s): E66.09 - Other obesity due to excess calories; Z68.35 - Body mass index (BMI) 35.0-35.9, adult; Z68.35 - Body mass index (BMI) 35.0-35.9, adult Initial treatment plan: 1) Discontinue Trazadone 100 mg po HS. 2) Start Trazadone 50 mg po HS and Seroquel 50 mg po HS. 3) Monitor progress
[2017-06-28] MEDS: PRENATAL VITAMINS W/ FOLIC ACID TABLET (FP) PO SCH (09:54)
[2017-06-28] MEDS: QUEtiapine FUMARATE 50 MG TABLET PO SCH (21:18)
[2017-06-28] MEDS: traZODone HCL 50 MG TABLET (FP) PO SCH (21:18)
[2017-06-28] MEDS: THIAMINE HCL 100 MG TABLET (FP) PO SCH (22:11)
[2017-06-29] MEDS: BACLOFEN 10 MG TABLET (FP) PO SCH (06:18)
[2017-06-29] MEDS: PRENATAL VITAMINS W/ FOLIC ACID TABLET (FP) PO SCH (09:55)
--- NOTE | 2017-06-29 13:45 | PN ---
[facility] Progress Note Note: Pt has complaint of knee pain. State Baclofen and IBU not helping. Pain sharp and level 6/10. Obj: Ext: no edema, +FROM of knee joints BL. A/P: Knee pain Will d/c baclofen and Ibuprofen start Robaxin 500mg BID continue to monitor clinically
[2017-06-29] MEDS: METHOCARBAMOL 500 MG TABLET PO SCH (21:12)
[2017-06-29] MEDS: QUEtiapine FUMARATE 50 MG TABLET PO SCH (21:13)
[2017-06-29] MEDS: traZODone HCL 50 MG TABLET (FP) PO SCH (21:13)
[2017-06-29] MEDS: THIAMINE HCL 100 MG TABLET (FP) PO SCH (21:14)
[2017-06-30] MEDS: PRENATAL VITAMINS W/ FOLIC ACID TABLET (FP) PO SCH (09:44)
[2017-06-30] MEDS: METHOCARBAMOL 500 MG TABLET PO SCH ×2 (09:44→21:27)
[2017-06-30] MEDS: traZODone HCL 50 MG TABLET (FP) PO SCH (21:27)
[2017-06-30] MEDS: QUEtiapine FUMARATE 50 MG TABLET PO SCH (21:27)
[2017-06-30] MEDS: THIAMINE HCL 100 MG TABLET (FP) PO SCH (21:27)
[2017-06-30] MEDS: SUVOREXANT 10 MG TABLET PO PRN (21:28)
[2017-07-01] MEDS: METHOCARBAMOL 500 MG TABLET PO SCH ×2 (09:54→21:17)
[2017-07-01] MEDS: PRENATAL VITAMINS W/ FOLIC ACID TABLET (FP) PO SCH (09:54)
--- NOTE | 2017-07-01 13:42 | PN ---
[facility] Progress Note Note: Patient reports some relief of pain with Robaxin. Pain level decreased from 8/ 10 to 4/10. Requested lidocaine patch to be added to regimen to help with pain management. Exam: pt ambulates freely without device. No swelling of extremities noted. In no acute distress. A/P: Left leg/hip pain: will continue robaxin and add lidocaine patch (2) daily to regimen. Continue to monitor clinically.
[2017-07-01] MEDS ORDERED: LIDOCAINE 5% TOPICAL PATCH TP ONE (14:43)
[2017-07-01] MEDS: QUEtiapine FUMARATE 50 MG TABLET PO SCH (21:16)
[2017-07-01] MEDS: THIAMINE HCL 100 MG TABLET (FP) PO SCH (21:16)
[2017-07-01] MEDS: SUVOREXANT 10 MG TABLET PO PRN (21:17)
[2017-07-01] MEDS: traZODone HCL 50 MG TABLET (FP) PO SCH (21:17)
[2017-07-01] MEDS: LIDOCAINE PATCH REMOVAL MC SCH (21:17)
[2017-07-01] MEDS ORDERED: LIDOCAINE PATCH REMOVAL MC SCH (22:00)
[2017-07-02] MEDS: LIDOCAINE 5% TOPICAL PATCH TP SCH (09:32)
[2017-07-02] MEDS: METHOCARBAMOL 500 MG TABLET PO SCH ×2 (09:32→21:18)
[2017-07-02] MEDS: PRENATAL VITAMINS W/ FOLIC ACID TABLET (FP) PO SCH (09:32)
[2017-07-02] MEDS: ACETAMINOPHEN 325 MG TABLET (FP) PO PRN (17:36)
[2017-07-02] MEDS: QUEtiapine FUMARATE 50 MG TABLET PO SCH (21:18)
[2017-07-02] MEDS: traZODone HCL 50 MG TABLET (FP) PO SCH (21:18)
[2017-07-02] MEDS: THIAMINE HCL 100 MG TABLET (FP) PO SCH (21:18)
[2017-07-02] MEDS: LIDOCAINE PATCH REMOVAL MC SCH (21:19)
[2017-07-03] MEDS: PRENATAL VITAMINS W/ FOLIC ACID TABLET (FP) PO SCH (09:57)
[2017-07-03] MEDS: METHOCARBAMOL 500 MG TABLET PO SCH ×2 (09:57→21:33)
[2017-07-03] MEDS: LIDOCAINE 5% TOPICAL PATCH TP SCH (09:58)
[2017-07-03] MEDS: QUEtiapine FUMARATE 50 MG TABLET PO SCH (21:32)
[2017-07-03] MEDS: LIDOCAINE PATCH REMOVAL MC SCH (21:32)
[2017-07-03] MEDS: traZODone HCL 50 MG TABLET (FP) PO SCH (21:32)
[2017-07-03] MEDS: THIAMINE HCL 100 MG TABLET (FP) PO SCH (21:32)
[2017-07-03] MEDS: MELATONIN 5 MG TABLETS PO PRN (21:34)
[2017-07-03] MEDS ORDERED: SUVOREXANT 10 MG TABLET PO PRN (22:00)
[2017-07-04] MEDS: MAG HYDROX/AL HYDROX/SIMETH 30 ML UNIT-DOSE CUP PO PRN (01:50)
[2017-07-04] MEDS: ACETAMINOPHEN 325 MG TABLET (FP) PO PRN ×2 (07:19→15:48)
[2017-07-04] MEDS: METHOCARBAMOL 500 MG TABLET PO SCH ×2 (09:39→21:17)
[2017-07-04] MEDS: LIDOCAINE 5% TOPICAL PATCH TP SCH (09:39)
[2017-07-04] MEDS: PRENATAL VITAMINS W/ FOLIC ACID TABLET (FP) PO SCH (09:39)
--- NOTE | 2017-07-04 09:56 | PN ---
Psychiatric Progress Note Vital Signs: Vital Signs Period Temp Pulse Resp BP Sys/Sheehan Pulse Ox Last 24 Hr 97.3 F 80-87 18-20 133-142/85-92 Date of Session: 07/04/17 Chief Complaint:: Follow up HPI: Patient addressing Opioid Dependence comorbid with Substance-Induced Sleep Disorder ROS: Chronic back pain, GERD, Obesity Current Medications: Active Medications Generic Name Dose Route Start Last Admin Trade Name Freq PRN Reason Stop Dose Admin Acetaminophen 650 mg 06/27/17 12:25 07/04/17 07:19 Tylenol - PO 650 mg Q4H PRN Administration FEVER Al Hydroxide/Mg Hydroxide 30 ml 06/27/17 12:25 07/04/17 01:50 Mylanta Oral Suspension - PO 30 ml Q6H PRN Administration DYSPEPSIA Diphenhydramine HCl 50 mg 07/04/17 09:48 Benadryl - PO HS PRN INSOMNIA Eucalyptus/Menthol/Phenol/Sorbitol 1 each 06/27/17 12:25 Cepastat Lozenge - MM Q4H PRN SORE THROAT Guaifenesin 10 ml 06/27/17 12:25 Robitussin Dm - PO Q6H PRN COUGH Hydroxyzine Pamoate 50 mg 06/27/17 12:25 Vistaril - PO Q4H PRN AGITATION Lidocaine 2 patch 07/02/17 10:00 07/04/17 09:39 Lidoderm Patch - TP 2 patch DAILY SUZAN Administration Loperamide HCl 4 mg 06/27/17 12:25 Imodium - PO Q6H PRN DIARRHEA Magnesium Citrate 300 ml 06/27/17 12:25 Citroma - PO Q48H PRN CONSTIPATION Magnesium Hydroxide 30 ml 06/27/17 12:25 Milk Of Magnesia - PO DAILY PRN CONSTIPATION Methocarbamol 500 mg 06/29/17 22:00 07/04/17 09:39 Robaxin - PO 500 mg BID SUZAN Administration Miscellaneous 1 each 07/01/17 22:00 07/03/17 21:32 Lidoderm Patch Removal MC Not Given DAILY@2200 SUZAN Multivit/Folic Acid/Iron 1 tab 06/28/17 10:00 07/04/17 09:39 Vitamins (Sjr) - PO 1 tab DAILY SUZAN Administration Pseudoephedrine/Triprolidine 1 combo 06/27/17 12:25 Actifed - PO TID PRN NASAL CONGESTION Quetiapine Fumarate 25 mg 07/04/17 22:00 Seroquel - PO HS SUZAN Suvorexant 10 mg 07/03/17 22:00 07/04/17 01:50 Belsomra PO 10 mg HS PRN Administration INSOMNIA Thiamine HCl 100 mg 06/27/17 22:00 07/03/17 21:32 Vitamin B1 - PO 100 mg HS SUZAN Administration Trazodone HCl 50 mg 06/28/17 22:00 07/03/17 21:32 Desyrel - PO Not Given HS SUZAN Medication(s) Change(s): 1) Discontinue Melatonin. 2) Decrease Seroquel dosage to 25 mg po HS. 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 She also requests that Melatonin be discontinued since it is not helping her but wants Benadryl 50 mg prn be substituted in its place. Total face to face time:: 15 Mental Status Exam - Mental Status Exam Alert and Oriented to: Time, Place, Person Cognitive Function: Fair Patient Appearance: Well Groomed Mood: Hopeful, Euthymic Affect: Appropriate Patient Behavior: Cooperative Speech Pattern: Clear Voice Loudness: Normal Thought Process: Intact, Goal Oriented Thought Disorder: Not Present Hallucinations: Denies Suicidal Ideation: Denies Homicidal Ideation: Denies Insight/Judgement: Fair Sleep: Poorly Appetite: Good Muscle strength/Tone: Normal Gait/Station: Normal Psychiatric Treatment Plan - Problem List (1) Opioid dependence Current Visit: Yes (2) Substance-induced sleep disorder Current Visit: Yes (3) Chronic back pain Current Visit: No Qualifiers: Back pain location: low back pain Back pain laterality: left Sciatica presence: with sciatica Sciatica laterality: sciatica of left side Qualified Code(s): M54.42 - Lumbago with sciatica, left side; G89.29 - Other chronic pain; G89.29 - Other chronic pain (4) GERD (gastroesophageal reflux disease) Current Visit: No Qualifiers: Esophagitis presence: without esophagitis Qualified Code(s): K21.9 - Gastro -esophageal reflux disease without esophagitis (5) Obesity Current Visit: No Qualifiers: Obesity type: due to excess calories Obesity classification: adult class 2 (BMI 35 - 39.9) Serious obesity comorbidity presence: without serious comorbidity Body mass index: BMI 35.0-35.9 Qualified Code(s): E66.09 - Other obesity due to excess calories; Z68.35 - Body mass index (BMI) 35.0-35.9, adult; Z68.35 - Body mass index (BMI) 35.0-35.9, adult Initial treatment plan: 1) Discontinue Melatonin and Seroquel as currently ordered. 2) Start Seroquel 25 mg po HS and Benadryl 50 mg po HS prn for insomnia. 3) Monitor progress
[2017-07-04] MEDS: QUEtiapine FUMARATE 25 MG TABLET (FP) PO SCH (21:17)
[2017-07-04] MEDS: THIAMINE HCL 100 MG TABLET (FP) PO SCH (21:17)
[2017-07-04] MEDS: traZODone HCL 50 MG TABLET (FP) PO SCH (21:17)
[2017-07-04] MEDS: diphenhydrAMINE HCL 50 MG CAPSULE PO PRN (21:17)
[2017-07-04] MEDS: LIDOCAINE PATCH REMOVAL MC SCH (21:18)
[2017-07-05 06:41] VITALS: TEMP 97.7
[2017-07-05] MEDS: METHOCARBAMOL 500 MG TABLET PO SCH ×2 (09:41→21:12)
[2017-07-05] MEDS: LIDOCAINE 5% TOPICAL PATCH TP SCH (09:41)
[2017-07-05] MEDS: PRENATAL VITAMINS W/ FOLIC ACID TABLET (FP) PO SCH (09:41)
--- NOTE | 2017-07-05 11:29 | HP ---
Psychiatrist Admission - Data Date of interview: 07/05/17 Admission source: Discharge Note Identifying data: Patient addressing Opioid Dependence comorbid with Substance- Induced Sleep Disorder Vital Signs: Vital Signs - 24 hr 07/05/17 07/05/17 07/05/17 00:30 03:30 06:41 Temperature 97.7 F Pulse Rate 79 Respiratory 20 20 18 Rate Blood Pressure 140/97 Allergies/Adverse Reactions: Allergies Allergy/AdvReac Type Severity Reaction Status Date / Time No Known Allergies Allergy Verified 06/27/17 11:58 Psychiatric Findings - Problem List ([place] 1, 2,3) (1) Opioid dependence Current Visit: Yes Status: Acute (2) Substance-induced sleep disorder Current Visit: Yes Status: Acute (3) Chronic back pain Current Visit: No Status: Chronic Qualifiers: Back pain location: low back pain Back pain laterality: left Sciatica presence: with sciatica Sciatica laterality: sciatica of left side Qualified Code(s): M54.42 - Lumbago with sciatica, left side; G89.29 - Other chronic pain; G89.29 - Other chronic pain (4) GERD (gastroesophageal reflux disease) Current Visit: No Status: Chronic Qualifiers: Esophagitis presence: without esophagitis Qualified Code(s): K21.9 - Gastro -esophageal reflux disease without esophagitis (5) Obesity Current Visit: No Status: Chronic Qualifiers: Obesity type: due to excess calories Obesity classification: adult class 2 (BMI 35 - 39.9) Serious obesity comorbidity presence: without serious comorbidity Body mass index: BMI 35.0-35.9 Qualified Code(s): E66.09 - Other obesity due to excess calories; Z68.35 - Body mass index (BMI) 35.0-35.9, adult; Z68.35 - Body mass index (BMI) 35.0-35.9, adult
--- NOTE | 2017-07-05 11:38 | PN ---
Psychiatric Progress Note Vital Signs: Vital Signs Period Temp Pulse Resp BP Sys/Sheehan Pulse Ox Last 24 Hr 97.7 F 79 18-20 140/97 Date of Session: 07/05/17 Chief Complaint:: Discharge Note HPI: Patient addressing Opioid Dependence comorbid with Substance-Induced Sleep Disorder ROS: Chronic back pain, GERD, Obesity Current Medications: Active Medications Generic Name Dose Route Start Last Admin Trade Name Freq PRN Reason Stop Dose Admin Acetaminophen 650 mg 06/27/17 12:25 07/04/17 15:48 Tylenol - PO 650 mg Q4H PRN Administration FEVER Al Hydroxide/Mg Hydroxide 30 ml 06/27/17 12:25 07/04/17 01:50 Mylanta Oral Suspension - PO 30 ml Q6H PRN Administration DYSPEPSIA Diphenhydramine HCl 50 mg 07/04/17 09:48 07/04/17 21:17 Benadryl - PO 50 mg HS PRN Administration INSOMNIA Eucalyptus/Menthol/Phenol/Sorbitol 1 each 06/27/17 12:25 Cepastat Lozenge - MM Q4H PRN SORE THROAT Guaifenesin 10 ml 06/27/17 12:25 Robitussin Dm - PO Q6H PRN COUGH Hydroxyzine Pamoate 50 mg 06/27/17 12:25 Vistaril - PO Q4H PRN AGITATION Lidocaine 2 patch 07/02/17 10:00 07/05/17 09:41 Lidoderm Patch - TP 2 patch DAILY SUZAN Administration Loperamide HCl 4 mg 06/27/17 12:25 Imodium - PO Q6H PRN DIARRHEA Magnesium Citrate 300 ml 06/27/17 12:25 Citroma - PO Q48H PRN CONSTIPATION Magnesium Hydroxide 30 ml 06/27/17 12:25 Milk Of Magnesia - PO DAILY PRN CONSTIPATION Methocarbamol 500 mg 06/29/17 22:00 07/05/17 09:41 Robaxin - PO 500 mg BID SUZAN Administration Miscellaneous 1 each 07/01/17 22:00 07/04/17 21:18 Lidoderm Patch Removal MC 1 each DAILY@2200 SUZAN Administration Multivit/Folic Acid/Iron 1 tab 06/28/17 10:00 07/05/17 09:41 Vitamins (Sjr) - PO 1 tab DAILY SUZAN Administration Pseudoephedrine/Triprolidine 1 combo 06/27/17 12:25 Actifed - PO TID PRN NASAL CONGESTION Quetiapine Fumarate 25 mg 07/04/17 22:00 07/04/17 21:17 Seroquel - PO 25 mg HS SUZAN Administration Suvorexant 10 mg 07/03/17 22:00 07/04/17 01:50 Belsomra PO 10 mg HS PRN Administration INSOMNIA Thiamine HCl 100 mg 06/27/17 22:00 07/04/17 21:17 Vitamin B1 - PO 100 mg HS SUZAN Administration Trazodone HCl 50 mg 06/28/17 22:00 07/04/17 21:17 Desyrel - PO 50 mg HS SUZAN Administration Current Side Effect: No Lab tests ordered: Yes Lab tests reviewed: Yes Provider note:: Patient will complete this program on 07/06/17. He has met his treatment goals and will continue to addess his issues in [facility] treatment at [facility]. Told life insurance underwriter that from his participation in this program , he has learned the importance of making meetings and using his sponsor. He responded well to Seroquel 25 mg po HS, Trazadone 50 mg po HS, Benadryl 50 mg po HS prn. Sripts for 30 days supply of Seroquel and Trazadone will be electronically be transmitted to [facility] at [address] [place] [address]. He is stable for discharge on 07/06/17 Total face to face time:: 35 Mental Status Exam - Mental Status Exam Alert and Oriented to: Time, Place, Person Cognitive Function: Fair Patient Appearance: Well Groomed Mood: Hopeful, Euthymic Affect: Appropriate Patient Behavior: Cooperative Speech Pattern: Clear Voice Loudness: Normal Thought Process: Intact, Goal Oriented Thought Disorder: Not Present Hallucinations: Denies Suicidal Ideation: Denies Homicidal Ideation: Denies Insight/Judgement: Fair Sleep: Fair Appetite: Good Muscle strength/Tone: Normal Gait/Station: Normal Psychiatric Treatment Plan - Problem List (1) Opioid dependence Current Visit: Yes (2) Substance-induced sleep disorder Current Visit: Yes (3) Chronic back pain Current Visit: No Qualifiers: Back pain location: low back pain Back pain laterality: left Sciatica presence: with sciatica Sciatica laterality: sciatica of left side Qualified Code(s): M54.42 - Lumbago with sciatica, left side; G89.29 - Other chronic pain; G89.29 - Other chronic pain (4) GERD (gastroesophageal reflux disease) Current Visit: No Qualifiers: Esophagitis presence: without esophagitis Qualified Code(s): K21.9 - Gastro -esophageal reflux disease without esophagitis (5) Obesity Current Visit: No Qualifiers: Obesity type: due to excess calories Obesity classification: adult class 2 (BMI 35 - 39.9) Serious obesity comorbidity presence: without serious comorbidity Body mass index: BMI 35.0-35.9 Qualified Code(s): E66.09 - Other obesity due to excess calories; Z68.35 - Body mass index (BMI) 35.0-35.9, adult; Z68.35 - Body mass index (BMI) 35.0-35.9, adult Initial treatment plan: Patient will be discharged tomorrow and referred to [facility] for fci residential treament
[2017-07-05] MEDS: ACETAMINOPHEN 325 MG TABLET (FP) PO PRN (13:15)
[2017-07-05] MEDS: MAG HYDROX/AL HYDROX/SIMETH 30 ML UNIT-DOSE CUP PO PRN (20:07)
[2017-07-05] MEDS: diphenhydrAMINE HCL 50 MG CAPSULE PO PRN (20:26)
[2017-07-05] MEDS: traZODone HCL 50 MG TABLET (FP) PO SCH (21:12)
[2017-07-05] MEDS: THIAMINE HCL 100 MG TABLET (FP) PO SCH (21:12)
[2017-07-05] MEDS: QUEtiapine FUMARATE 25 MG TABLET (FP) PO SCH (21:12)
[2017-07-05] MEDS: LIDOCAINE PATCH REMOVAL MC SCH (21:13)
[2017-07-06 06:41] VITALS: BP 133/86; PULSE 88
[2017-07-06] MEDS: METHOCARBAMOL 500 MG TABLET PO SCH (09:04)
[2017-07-06] MEDS: PRENATAL VITAMINS W/ FOLIC ACID TABLET (FP) PO SCH (09:04)
[2017-07-06] MEDS: LIDOCAINE 5% TOPICAL PATCH TP SCH (09:05)
[2017-07-06] MEDS: MAG HYDROX/AL HYDROX/SIMETH 30 ML UNIT-DOSE CUP PO PRN (09:24)
== END 2017-07-06 10:00 | disposition home or self-care (01) | DRG 772 ==
LOC: YASAS 11:31 → Y3W 11:33
PROVIDERS: ADMIT Psychiatry & Neurology Psychiatry; ATTEND Psychiatry & Neurology Psychiatry
PROC: HZ42ZZZ Group Counseling for Substance Abuse Treatment, Cognitive-Behavioral (ICD-10-PCS; principal; 2017-06-27)
DX: F10.20 Alcohol dependence, uncomplicated (principal); F19.282 Other psychoactive substance dependence with psychoactive substance-induced sleep disorder; K21.9 Gastro-esophageal reflux disease without esophagitis; M54.5 Low back pain; G89.29 Other chronic pain; M25.561 Pain in right knee; M25.562 Pain in left knee; E66.09 Other obesity due to excess calories; Z68.35 Body mass index [BMI] 35.0-35.9, adult
CPT/HCPCS: J0475

== ENCOUNTER 2017-11-18 10:55 | Inpatient (IN) | payer OTHER ==
[2017-11-18 12:16] VITALS: BMI 36.6
--- NOTE | 2017-11-18 15:34 | HP ---
COWS - Scale Resting Pulse: 1= [place] 81-100 Sweatin= Chills/Flushing Restless Observation: 1= Difficult to Sit Still Pupil Size: 0= Normal to Room Light Bone or Joint Aches: 2= Severe Diffuse Aches Runny Nose/ Eye Tearin= Runny Nose/Eyes GI Upset > 30mins: 2= Nausea/Diarrhea Tremor Observation: 2= Slight Tremor Visible Yawning Observation: 1= 1-2x During Session Anxiety or Irritability: 2=Irritable/Anxious Goose Flesh Skin: 0=Smooth Skin COWS Score: 14 Admission ROS BHS - HPI Chief Complaint: I get really sick, I can't take it, I have to get help, get off it, the withdrawals are a nightmare Allergies/Adverse Reactions: Allergies Allergy/AdvReac Type Severity Reaction Status Date / Time No Known Allergies Allergy Verified 11/18/17 13:07 History of Present Illness: 52 yo gentleman here for detox from opiates - noted oxy and met in urine tox but patient denies using that separately, thinks mixed with heroin. Denies any etoh intake. No seizures, no black outs, history of two overdoses. Was on a methadone program (120mg) four years ago but came off it and relapsed a few months later. Exam Limitations: Clinical Condition - Ebola screening Have you traveled outside of the country in the last 21 days: No Have you had contact with anyone from an Ebola affected area: No Have you been sick,other than usual withdrawal symptoms: No - Review of Systems Constitutional: Chills, Loss of Appetite, Changes in sleep EENT: reports: Blurred Vision, Nose Congestion Respiratory: reports: No Symptoms reported Cardiac: reports: No Symptoms Reported GI: reports: Poor Fluid Intake, Indigestion, Abdominal cramping : reports: Dysuria Musculoskeletal: reports: Back Pain, Joint Pain, Muscle Pain Integumentary: reports: No Symptoms Reported Neuro: reports: Headache Endocrine: reports: No Symptoms Reported Psychiatric: reports: Judgement Intact, Mood/Affect Appropiate, Orientated x3, Anxious Other Systems: Reviewed and Negative Patient History - Patient Medical History Hx Anemia: No Hx Asthma: No Hx Chronic Obstructive Pulmonary Disease (COPD): No Hx Cancer: No Hx Cardiac Disorders: No Hx Congestive Heart Failure: No Hx Hypertension: No Hx Hypercholesterolemia: No Hx Pacemaker: No HX Cerebrovascular Accident: No Hx Seizures: No Hx Dementia: No Hx Diabetes: No Hx Gastrointestinal Disorders: No Hx Liver Disease: No Hx Genitourinary Disorders: No Hx Sexually Transmitted Disorders: No Hx Renal Disease (ESRD): No Hx Thyroid Disease: No Hx Human Immunodeficiency Virus (HIV): No (NEVER TESTED) Hx Hepatitis C: No Hx Depression: Yes (anxiety, insomnia) Hx Suicide Attempt: No Hx Bipolar Disorder: No Hx Schizophrenia: No Other Medical History: back pain - Patient Surgical History Past Surgical History: No Hx Neurologic Surgery: No Hx Cataract Extraction: No Hx Cardiac Surgery: No Hx Lung Surgery: No Hx Breast Surgery: No Hx Breast Biopsy: No Hx Abdominal Surgery: No Hx Appendectomy: No Hx Cholecystectomy: No Hx Genitourinary Surgery: No Hx Section: No Hx Orthopedic Surgery: No Anesthesia Reaction: No - PPD History Previous Implant?: Yes Documented Results: Negative w/proof Implanted On Prior [facility] Admission?: Yes Date: 06/22/17 Results: 0 mm - Reproductive History Patient is a Female of Child Bearing Age (11 -55 yrs old): No (male) - Smoking Cessation Smoking history: Never smoked Aproximately how many cigarettes per day: 0 Cigars Per Day: 0 Hx Chewing Tobacco Use: No Initiated information on smoking cessation: No - Substance & Tx. History Hx Alcohol Use: No Hx Substance Use: Yes Substance Use Type: Heroin, Marijuana Hx Substance Use Treatment: Yes (detox,) - Substances Abused Heroin Route: Inhalation Frequency: Daily Amount used: 1 BUNDLE Age of first use: 17 Date of Last Use: 11/18/17 pot Route: Smoking Frequency: 3-6 times per week Amount used: 1 joint Age of first use: 16 Date of Last Use: 11/17/17 Family Disease History - Family Disease History Family Disease History: Diabetes: Brother (two - living ), Heart Disease: Brother, CA: Father (lymphoma/), Mother (breast/), Other: Brother Admission Physical Exam BHS - Vital Signs Vital Signs: Vital Signs - 24 hr 11/18/17 12:08 Temperature 98.0 F Pulse Rate 89 Respiratory 18 Rate Blood Pressure 147/74 - Physical General Appearance: Yes: Nourished, Appropriately Dressed, Moderate Distress, Obese, Tremorous, Anxious HEENTM: Yes: EOMI, Hearing grossly Normal, Normocephalic, Normal Voice, Pharynx Normal, Nasal Congestion Respiratory: Yes: Normal Breath Sounds, No Respiratory Distress Neck: Yes: No masses,lesions,Nodules Breast: Yes: Breast Exam Deferred Cardiology: Yes: Regular Rhythm, Regular Rate Abdominal: Yes: Non Tender, Soft Genitourinary: Yes: Dysuria Back: Yes: Normal Inspection Musculoskeletal: Yes: full range of Motion, Gait Steady, Back pain, Muscle Pain Extremities: Yes: Normal Inspection, Normal Range of Motion, Non-Tender 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: Yes: Fully Oriented, Alert, Motor Strength 5/5, Normal Mood/Affect , Normal Response Integumentary: Yes: Normal Color, Dry, Warm Lymphatic: Yes: Within Normal Limits - Diagnostic (1) Opioid dependence with withdrawal Current Visit: Yes Status: Chronic (2) Knee pain, bilateral Current Visit: Yes Status: Chronic Qualifiers: Chronicity: chronic Qualified Code(s): M25.561 - Pain in right knee; M25.562 - Pain in left knee; G89.29 - Other chronic pain (3) Chronic back pain Current Visit: Yes Status: Chronic Qualifiers: Back pain location: low back pain Back pain laterality: left Sciatica presence: with sciatica Sciatica laterality: sciatica of left side Qualified Code(s): M54.42 - Lumbago with sciatica, left side; G89.29 - Other chronic pain (4) GERD (gastroesophageal reflux disease) Current Visit: Yes Status: Chronic Qualifiers: Esophagitis presence: without esophagitis Qualified Code(s): K21.9 - Gastro -esophageal reflux disease without esophagitis (5) Obesity Current Visit: Yes Status: Chronic Qualifiers: Obesity type: due to excess calories Obesity classification: adult class 2 (BMI 35 - 39.9) Serious obesity comorbidity presence: without serious comorbidity Body mass index: BMI 35.0-35.9 Qualified Code(s): E66.09 - Other obesity due to excess calories; Z68.35 - Body mass index (BMI) 35.0-35.9, adult Cleared for Admission [facility] - Detox or Rehab [facility] Level of Care: Medically Managed Detox Regimen/Protocol: Methadone [facility] Breath Alcohol Content Breath Alcohol Content: 0 Urine Drug Screen - Results Urine Drug Screen Results: THC-Marijuana, OPI-Opiates, MET-Methamphetamine, OXY- Oxycodone
[2017-11-18] MEDS ORDERED: MENTHOL/PHENOL 1 EACH UD MM PRN (15:39)
[2017-11-18] MEDS ORDERED: MAGNESIUM CITRATE 300 ML BOTTLE PO PRN (15:39)
[2017-11-18] MEDS ORDERED: hydrOXYzine PAMOATE 50 MG CAPSULE (FP) PO PRN (15:39)
[2017-11-18] MEDS ORDERED: P-EPHED 60MG/TRIPROLIDI 2.5MG TABLET PO PRN (15:39)
[2017-11-18] MEDS ORDERED: guaiFENesin/D-METHORPHAN HB 10 ML UNIT-DOSE CUPS PO PRN (15:39)
[2017-11-18] MEDS ORDERED: ACETAMINOPHEN 325 MG TABLET (FP) PO PRN (15:39)
[2017-11-18] MEDS ORDERED: MAGNESIUM HYDROX 2400MG/30ML ORAL SUSPENSION 30 ML CUP PO PRN (15:39)
[2017-11-18] MEDS ORDERED: MAG HYDROX/AL HYDROX/SIMETH 30 ML UNIT-DOSE CUP PO PRN (15:39)
[2017-11-18] MEDS ORDERED: LOPERAMIDE HCL 2 MG CAPSULE PO PRN (15:39)
[2017-11-18] MEDS ORDERED: METHADONE HCL 10 MG TABLET (FOR DETOX USE ONLY) PO ONE ×2 (18:15→23:00)
[2017-11-18] MEDS: diazePAM 5 MG TABLET PO PRN (20:24)
[2017-11-18] MEDS ORDERED: MELATONIN 5 MG TABLETS PO PRN (22:00)
[2017-11-18] MEDS: THIAMINE HCL 100 MG TABLET (FP) PO SCH (22:11)
[2017-11-19] MEDS: diazePAM 5 MG TABLET PO PRN ×5 (00:53→22:52)
[2017-11-19] MEDS ORDERED: METHADONE HCL 10 MG TABLET (FOR DETOX USE ONLY) PO ONE (10:00)
[2017-11-19] MEDS: PRENATAL VITAMINS W/ FOLIC ACID TABLET (FP) PO SCH (10:07)
[2017-11-19 10:37] LABS: HEMATOCRIT 41.9 % (35.4-49); HEMOGLOBIN 14.4 GM/dL (11.7-16.9); MCH 29.9 pg (25.7-33.7); MCHC 34.3 g/dl (32.0-35.9); MEAN CELL VOLUME 87.4 fl (80-96); MEAN PLT VOLUME 8.6 fl (7.5-11.1); PLATELET COUNT 229 K/MM3 (134-434); RDW 13.5 % (11.9-15.9); WHITE BLOOD COUNT 9.1 K/mm3 (4.0-10.0)
[2017-11-19 10:44] LABS: CHLORIDE 105 mmol/L (98-107); POTASSIUM 3.9 mmol/L (3.5-5.1); SODIUM 142 mmol/L (136-145)
[2017-11-19 10:56] LABS: ALBUMIN 3.3 g/dl (3.4-5.0); ALK PHOS 52 U/L (45-117); ANION GAP 9 MMOL/L (8-16); BILIRUBIN,TOTAL 0.5 mg/dL (0.2-1.0); BLOOD UREA NITROGEN 18 mg/dL (7-18); CALCIUM 8.6 mg/dL (8.5-10.1); CO2 28 mmol/L (21-32); CREATININE 0.7 mg/dL (0.7-1.3); GLUCOSE,RANDOM 89 mg/dL (74-106); SGOT/AST 24 U/L (15-37); SGPT/ALT 24 U/L (12-78); TOT PROT 6.3 g/dl (6.4-8.2)
[2017-11-19 11:09] LABS: URINE APPEARANCE CLEAR; URINE BILIRUBIN NEGATIVE (<2.0 mg/dL); URINE COLOR YELLOW; URINE GLUCOSE (UA) NEGATIVE (NEGATIVE); URINE KETONE NEGATIVE (NEGATIVE); URINE LEUK ESTERASE NEGATIVE (NEGATIVE); URINE NITRITE NEGATIVE (NEGATIVE); URINE PROTEIN NEGATIVE (NEGATIVE); URINE UROBILINOGEN NEGATIVE mg/dL (0.2-1.0)
[2017-11-19 11:13] LABS: URINE MUCUS FEW
--- NOTE | 2017-11-19 13:19 | PN ---
BHS COWS - Scale Resting Pulse: 0= [place] 80 or Below Sweatin=Flushed/Facial Moisture Restless Observation: 1= Difficult to Sit Still Pupil Size: 0= Normal to Room Light Bone or Joint Aches: 1= Mild Discomfort Runny Nose/ Eye Tearin= Nasal Congestion GI Upset > 30mins: 1= Stomach Cramp Tremor Observation of Outstretched Hands: 2= Slight Tremor Visible Yawning Observation: 1= 1-2x During Session Anxiety or Irritability: 2=Irritable/Anxious Goose Flesh Skin: 0=Smooth Skin COWS Score: 11 BHS Progress Note (SOAP) Subjective: sweats abd cramps shakes Objective: 11/19/17 13:17 A & O x 3 Vital Signs Temperature 97.9 F 11/19/17 09:32 Pulse Rate 73 11/19/17 09:32 Respiratory Rate 18 11/19/17 09:32 Blood Pressure 155/98 11/19/17 09:32 O2 Sat by Pulse Oximetry (%) Laboratory Last Values WBC 9.1 K/mm3 (4.0-10.0) 11/19/17 08:00 RBC 4.80 M/mm3 (4.00-5.60) 11/19/17 08:00 Hgb 14.4 GM/dL (11.7-16.9) 11/19/17 08:00 Hct 41.9 % (35.4-49) 11/19/17 08:00 MCV 87.4 fl (80-96) 11/19/17 08:00 MCH 29.9 pg (25.7-33.7) 11/19/17 08:00 MCHC 34.3 g/dl (32.0-35.9) 11/19/17 08:00 RDW 13.5 % (11.9-15.9) 11/19/17 08:00 Plt Count 229 K/MM3 (134-434) 11/19/17 08:00 MPV 8.6 fl (7.5-11.1) 11/19/17 08:00 Sodium 142 mmol/L (136-145) 11/19/17 08:00 Potassium 3.9 mmol/L (3.5-5.1) 11/19/17 08:00 Chloride 105 mmol/L (98-107) 11/19/17 08:00 Carbon Dioxide 28 mmol/L (21-32) 11/19/17 08:00 Anion Gap 9 MMOL/L (8-16) 11/19/17 08:00 BUN 18 mg/dL (7-18) 11/19/17 08:00 Creatinine 0.7 mg/dL (0.7-1.3) 11/19/17 08:00 Creat Clearance w eGFR > 60 (>60) 11/19/17 08:00 Random Glucose 89 mg/dL (74-106) D 11/19/17 08:00 Calcium 8.6 mg/dL (8.5-10.1) 11/19/17 08:00 Total Bilirubin 0.5 mg/dL (0.2-1.0) 11/19/17 08:00 AST 24 U/L (15-37) D 11/19/17 08:00 ALT 24 U/L (12-78) 11/19/17 08:00 Alkaline Phosphatase 52 U/L (45-117) 11/19/17 08:00 Total Protein 6.3 g/dl (6.4-8.2) L 11/19/17 08:00 Albumin 3.3 g/dl (3.4-5.0) L 11/19/17 08:00 Urine Color Yellow 11/19/17 08:20 Urine Appearance Clear 11/19/17 08:20 Urine pH 5.0 (5.0-8.0) 11/19/17 08:20 Ur Specific [place] 1.026 (1.001-1.035) 11/19/17 08:20 Urine Protein Negative (NEGATIVE) 11/19/17 08:20 Urine Glucose (UA) Negative (NEGATIVE) 11/19/17 08:20 Urine Ketones Negative (NEGATIVE) 11/19/17 08:20 Urine Blood 1+ (NEGATIVE) H 11/19/17 08:20 Urine Nitrite Negative (NEGATIVE) 11/19/17 08:20 Urine Bilirubin Negative (<2.0 mg/dL) 11/19/17 08:20 Urine Urobilinogen Negative mg/dL (0.2-1.0) 11/19/17 08:20 Ur Leukocyte Esterase Negative (NEGATIVE) 11/19/17 08:20 Urine WBC (Auto) 2 /hpf (3-5) 11/19/17 08:20 Urine RBC (Auto) 14 /hpf (0-3) 11/19/17 08:20 Urine Mucus Few 11/19/17 08:20 RPR Titer Nonreactive (NONREACTIVE) 11/19/17 08:00 labs noted, abnormal urinalysis Assessment: 11/19/17 13:18 withdrawal sx Plan: continue detox Increase hydration Repeat UA
--- NOTE | 2017-11-19 15:29 | CONSULT ---
[facility] Psychiatric Consult - Data Date of interview: 11/19/17 Admission source: [facility] Identifying data: This is one of several admissions to [facility] for this 52 y/ o male self-referred for detoxification treatment (heroin,cannabis dependence).Patient is without children,domiciled and currently employed.Mr Guerrero is a [employer] with three years of service.No combat experience. Substance Abuse History: Confirmed by patient in this session.Details in current [facility] report : Smoking history: Never smoked. Aproximately how many cigarettes per day: 0. Cigars Per Day: 0. Hx Chewing Tobacco Use: No. Initiated information on smoking cessation: No. - Substance & Tx. History. Hx Alcohol Use: No. Hx Substance Use: Yes. Substance Use Type: Heroin, Marijuana. Hx Substance Use Treatment: Yes (detox,). - Substances Abused. Heroin. Route: Inhalation. Frequency: Daily. Amount used: 1 BUNDLE. Age of first use: 17. Date of Last Use: 11/18/17. pot. Route: Smoking. Frequency : 3-6 times per week. Amount used: 1 joint. Age of first use: 16. Date of Last Use: 11/17/17 Medical History: Obesity,GERD and dyslipidemia. Psychiatric History: No history of psychiatric hospitalizations or suicide attempts.Mr Guerrero used to see a psychiatrist at the [facility] for the management of chronic insomnia.No show for weeks as per self-report.Patient informs that he is still prescribed seroquel 25 mg/hs + trazodone 100 mg/hs. Physical/Sexual Abuse/Trauma History: Patient denies. Additional Comment: Urine Drug Screen Results: THC-Marijuana, OPI-Opiates, MET- Methamphetamine, OXY-Oxycodone.Noted. 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) Affect: Mood Congruent, Constricted Patient Behavior: Fatigued, Appropriate, Cooperative Speech Pattern: Clear, Appropriate Voice Loudness: Normal Thought Process: Intact, Goal Oriented Thought Disorder: Not Present Hallucinations: Denies Suicidal Ideation: Denies Homicidal Ideation: Denies Insight/Judgement: Poor Sleep: Poorly, Difficulty falling asleep Appetite: Fair Muscle strength/Tone: Normal Gait/Station: Normal Psychiatric Findings - Problem List ([place] 1, 2,3) (1) Opioid dependence with withdrawal Current Visit: Yes Status: Acute (2) Cannabis dependence Current Visit: Yes Status: Acute (3) Opioid-induced mood disorder Current Visit: Yes Status: Acute (4) Insomnia Current Visit: Yes Status: Acute - Initial Treatment Plan Initial Treatment Plan: Support.Psychoeducation.Sleep hygiene.Detoxification.Medications reconciled : trazodone 100 mg po hs + seroquel 25 mg po hs.Side effects/benefits of both drugs are discussed with the patient.Made aware of risk of metabolic syndrome,abnormal involuntary movements, priapism and sedation.Mr Guerrero agrees to this careplan.Observation.
[2017-11-19] MEDS: QUEtiapine FUMARATE 25 MG TABLET (FP) PO SCH (22:17)
[2017-11-19] MEDS: traZODone HCL 50 MG TABLET (FP) PO SCH (22:17)
[2017-11-19] MEDS: THIAMINE HCL 100 MG TABLET (FP) PO SCH (22:17)
[2017-11-20] MEDS ORDERED: METHADONE HCL 5 MG TABLET (FOR DETOX USE ONLY) PO ONE (10:00)
[2017-11-20] MEDS: PRENATAL VITAMINS W/ FOLIC ACID TABLET (FP) PO SCH (10:10)
[2017-11-20] MEDS: diazePAM 5 MG TABLET PO PRN ×3 (10:12→22:37)
[2017-11-20] MEDS: IBUPROFEN 400 MG TABLET (FP) PO PRN (14:34)
--- NOTE | 2017-11-20 15:04 | PN ---
BHS COWS - Scale Resting Pulse: 0= [place] 80 or Below Sweatin= Chills/Flushing Restless Observation: 1= Difficult to Sit Still Pupil Size: 1= Pupils >than Normal Bone or Joint Aches: 1= Mild Discomfort Runny Nose/ Eye Tearin= Nasal Congestion GI Upset > 30mins: 1= Stomach Cramp Tremor Observation of Outstretched Hands: 1= Tremor [place], Not Seen Yawning Observation: 2= >3x During Session Anxiety or Irritability: 2=Irritable/Anxious Goose Flesh Skin: 0=Smooth Skin COWS Score: 11 BHS Progress Note (SOAP) Subjective: irritable anxiety restlessness trouble sleep at night body ache gi distress Objective: 11/20/17 15:04 Vital Signs Temperature 98.2 F 11/20/17 14:48 Pulse Rate 83 11/20/17 14:48 Respiratory Rate 18 11/20/17 14:48 Blood Pressure 152/95 11/20/17 14:48 O2 Sat by Pulse Oximetry (%) Laboratory Last Values WBC 9.1 K/mm3 (4.0-10.0) 11/19/17 08:00 RBC 4.80 M/mm3 (4.00-5.60) 11/19/17 08:00 Hgb 14.4 GM/dL (11.7-16.9) 11/19/17 08:00 Hct 41.9 % (35.4-49) 11/19/17 08:00 MCV 87.4 fl (80-96) 11/19/17 08:00 MCH 29.9 pg (25.7-33.7) 11/19/17 08:00 MCHC 34.3 g/dl (32.0-35.9) 11/19/17 08:00 RDW 13.5 % (11.9-15.9) 11/19/17 08:00 Plt Count 229 K/MM3 (134-434) 11/19/17 08:00 MPV 8.6 fl (7.5-11.1) 11/19/17 08:00 Sodium 142 mmol/L (136-145) 11/19/17 08:00 Potassium 3.9 mmol/L (3.5-5.1) 11/19/17 08:00 Chloride 105 mmol/L (98-107) 11/19/17 08:00 Carbon Dioxide 28 mmol/L (21-32) 11/19/17 08:00 Anion Gap 9 MMOL/L (8-16) 11/19/17 08:00 BUN 18 mg/dL (7-18) 11/19/17 08:00 Creatinine 0.7 mg/dL (0.7-1.3) 11/19/17 08:00 Creat Clearance w eGFR > 60 (>60) 11/19/17 08:00 Random Glucose 89 mg/dL (74-106) D 11/19/17 08:00 Calcium 8.6 mg/dL (8.5-10.1) 11/19/17 08:00 Total Bilirubin 0.5 mg/dL (0.2-1.0) 11/19/17 08:00 AST 24 U/L (15-37) D 11/19/17 08:00 ALT 24 U/L (12-78) 11/19/17 08:00 Alkaline Phosphatase 52 U/L (45-117) 11/19/17 08:00 Total Protein 6.3 g/dl (6.4-8.2) L 11/19/17 08:00 Albumin 3.3 g/dl (3.4-5.0) L 11/19/17 08:00 Urine Color Yellow 11/19/17 08:20 Urine Appearance Clear 11/19/17 08:20 Urine pH 5.0 (5.0-8.0) 11/19/17 08:20 Ur Specific [place] 1.026 (1.001-1.035) 11/19/17 08:20 Urine Protein Negative (NEGATIVE) 11/19/17 08:20 Urine Glucose (UA) Negative (NEGATIVE) 11/19/17 08:20 Urine Ketones Negative (NEGATIVE) 11/19/17 08:20 Urine Blood 1+ (NEGATIVE) H 11/19/17 08:20 Urine Nitrite Negative (NEGATIVE) 11/19/17 08:20 Urine Bilirubin Negative (<2.0 mg/dL) 11/19/17 08:20 Urine Urobilinogen Negative mg/dL (0.2-1.0) 11/19/17 08:20 Ur Leukocyte Esterase Negative (NEGATIVE) 11/19/17 08:20 Urine WBC (Auto) 2 /hpf (3-5) 11/19/17 08:20 Urine RBC (Auto) 14 /hpf (0-3) 11/19/17 08:20 Urine Mucus Few 11/19/17 08:20 RPR Titer Nonreactive (NONREACTIVE) 11/19/17 08:00 lab noted Assessment: 11/20/17 15:04 withdrawal sx Plan: continue detox
[2017-11-20 21:46] LABS: URINE APPEARANCE CLEAR; URINE BILIRUBIN NEGATIVE (<2.0 mg/dL); URINE COLOR YELLOW; URINE GLUCOSE (UA) NEGATIVE (NEGATIVE); URINE KETONE NEGATIVE (NEGATIVE); URINE LEUK ESTERASE NEGATIVE (NEGATIVE); URINE NITRITE NEGATIVE (NEGATIVE); URINE PROTEIN NEGATIVE (NEGATIVE); URINE UROBILINOGEN NEGATIVE mg/dL (0.2-1.0)
[2017-11-20 21:50] LABS: CALCIUM OXALATE CRYSTALS FEW /hpf (NONE SEEN); URINE HYALINE CAST 1 /lpf; URINE MUCUS RARE
[2017-11-20] MEDS: THIAMINE HCL 100 MG TABLET (FP) PO SCH (22:38)
[2017-11-20] MEDS: QUEtiapine FUMARATE 25 MG TABLET (FP) PO SCH (22:38)
[2017-11-20] MEDS: traZODone HCL 50 MG TABLET (FP) PO SCH (22:38)
[2017-11-21] MEDS ORDERED: METHADONE HCL 5 MG TABLET (FOR DETOX USE ONLY) PO ONE (10:00)
[2017-11-21] MEDS: PRENATAL VITAMINS W/ FOLIC ACID TABLET (FP) PO SCH (10:04)
[2017-11-21] MEDS: diazePAM 5 MG TABLET PO PRN ×2 (10:05→15:03)
--- NOTE | 2017-11-21 11:25 | EKG ---
Test Reason : Blood Pressure : / mmHG Vent. Rate : 070 BPM Atrial Rate : 070 BPM P-R Int : 172 ms QRS Dur : 096 ms QT Int : 402 ms P-R-T Axes : 038 009 020 degrees QTc Int : 434 ms NORMAL SINUS RHYTHM NORMAL ECG WHEN COMPARED WITH ECG OF 20-JUN-2017 18:06, NO SIGNIFICANT CHANGE WAS FOUND Confirmed by MARYAN TAYLOR MD ([id number]) on 11/21/2017 11:25:21 AM Referred By: Confirmed By:MARYAN TAYLOR MD
[2017-11-21] MEDS: IBUPROFEN 400 MG TABLET (FP) PO PRN ×2 (13:24→20:54)
--- NOTE | 2017-11-21 13:35 | PN ---
BHS Progress Note (SOAP) Subjective: joints pain body aches muscle cramping sweat tremor restlessness trouble sleep at night Objective: 11/21/17 13:34 Vital Signs Temperature 98.2 F 11/21/17 13:22 Pulse Rate 75 11/21/17 13:22 Respiratory Rate 18 11/21/17 13:22 Blood Pressure 132/80 11/21/17 13:22 O2 Sat by Pulse Oximetry (%) Laboratory Last Values WBC 9.1 K/mm3 (4.0-10.0) 11/19/17 08:00 RBC 4.80 M/mm3 (4.00-5.60) 11/19/17 08:00 Hgb 14.4 GM/dL (11.7-16.9) 11/19/17 08:00 Hct 41.9 % (35.4-49) 11/19/17 08:00 MCV 87.4 fl (80-96) 11/19/17 08:00 MCH 29.9 pg (25.7-33.7) 11/19/17 08:00 MCHC 34.3 g/dl (32.0-35.9) 11/19/17 08:00 RDW 13.5 % (11.9-15.9) 11/19/17 08:00 Plt Count 229 K/MM3 (134-434) 11/19/17 08:00 MPV 8.6 fl (7.5-11.1) 11/19/17 08:00 Sodium 142 mmol/L (136-145) 11/19/17 08:00 Potassium 3.9 mmol/L (3.5-5.1) 11/19/17 08:00 Chloride 105 mmol/L (98-107) 11/19/17 08:00 Carbon Dioxide 28 mmol/L (21-32) 11/19/17 08:00 Anion Gap 9 MMOL/L (8-16) 11/19/17 08:00 BUN 18 mg/dL (7-18) 11/19/17 08:00 Creatinine 0.7 mg/dL (0.7-1.3) 11/19/17 08:00 Creat Clearance w eGFR > 60 (>60) 11/19/17 08:00 Random Glucose 89 mg/dL (74-106) D 11/19/17 08:00 Calcium 8.6 mg/dL (8.5-10.1) 11/19/17 08:00 Total Bilirubin 0.5 mg/dL (0.2-1.0) 11/19/17 08:00 AST 24 U/L (15-37) D 11/19/17 08:00 ALT 24 U/L (12-78) 11/19/17 08:00 Alkaline Phosphatase 52 U/L (45-117) 11/19/17 08:00 Total Protein 6.3 g/dl (6.4-8.2) L 11/19/17 08:00 Albumin 3.3 g/dl (3.4-5.0) L 11/19/17 08:00 Urine Color Yellow 11/20/17 14:40 Urine Appearance Clear 11/20/17 14:40 Urine pH 7.0 (5.0-8.0) D 11/20/17 14:40 Ur Specific [place] 1.016 (1.001-1.035) 11/20/17 14:40 Urine Protein Negative (NEGATIVE) 11/20/17 14:40 Urine Glucose (UA) Negative (NEGATIVE) 11/20/17 14:40 Urine Ketones Negative (NEGATIVE) 11/20/17 14:40 Urine Blood 1+ (NEGATIVE) H 11/20/17 14:40 Urine Nitrite Negative (NEGATIVE) 11/20/17 14:40 Urine Bilirubin Negative (<2.0 mg/dL) 11/20/17 14:40 Urine Urobilinogen Negative mg/dL (0.2-1.0) 11/20/17 14:40 Ur Leukocyte Esterase Negative (NEGATIVE) 11/20/17 14:40 Urine WBC (Auto) 1 /hpf (3-5) 11/20/17 14:40 Urine RBC (Auto) 6 /hpf (0-3) 11/20/17 14:40 Calcium Oxalate Crystal Few /hpf (NONE SEEN) 11/20/17 14:40 Hyaline Casts 1 /lpf 11/20/17 14:40 Urine Mucus Rare 11/20/17 14:40 RPR Titer Nonreactive (NONREACTIVE) 11/19/17 08:00 lab noted Assessment: 11/21/17 13:34 withdrawal sx Plan: continue detox
[2017-11-21] MEDS: QUEtiapine FUMARATE 25 MG TABLET (FP) PO SCH (22:12)
[2017-11-21] MEDS: THIAMINE HCL 100 MG TABLET (FP) PO SCH (22:13)
[2017-11-21] MEDS: traZODone HCL 50 MG TABLET (FP) PO SCH (22:13)
[2017-11-22] MEDS ORDERED: METHADONE HCL 10 MG TABLET (FOR DETOX USE ONLY) PO ONE (10:00)
[2017-11-22] MEDS: PRENATAL VITAMINS W/ FOLIC ACID TABLET (FP) PO SCH (10:06)
[2017-11-22] MEDS: IBUPROFEN 400 MG TABLET (FP) PO PRN ×2 (11:45→17:48)
--- NOTE | 2017-11-22 15:41 | PN ---
BHS Progress Note (SOAP) Subjective: feeling better no tremor no body ache less sweat no gi distress Objective: 11/22/17 15:41 Vital Signs Temperature 97.9 F 11/22/17 13:01 Pulse Rate 79 11/22/17 13:01 Respiratory Rate 18 11/22/17 13:01 Blood Pressure 111/55 11/22/17 13:01 O2 Sat by Pulse Oximetry (%) Laboratory Last Values WBC 9.1 K/mm3 (4.0-10.0) 11/19/17 08:00 RBC 4.80 M/mm3 (4.00-5.60) 11/19/17 08:00 Hgb 14.4 GM/dL (11.7-16.9) 11/19/17 08:00 Hct 41.9 % (35.4-49) 11/19/17 08:00 MCV 87.4 fl (80-96) 11/19/17 08:00 MCH 29.9 pg (25.7-33.7) 11/19/17 08:00 MCHC 34.3 g/dl (32.0-35.9) 11/19/17 08:00 RDW 13.5 % (11.9-15.9) 11/19/17 08:00 Plt Count 229 K/MM3 (134-434) 11/19/17 08:00 MPV 8.6 fl (7.5-11.1) 11/19/17 08:00 Sodium 142 mmol/L (136-145) 11/19/17 08:00 Potassium 3.9 mmol/L (3.5-5.1) 11/19/17 08:00 Chloride 105 mmol/L (98-107) 11/19/17 08:00 Carbon Dioxide 28 mmol/L (21-32) 11/19/17 08:00 Anion Gap 9 MMOL/L (8-16) 11/19/17 08:00 BUN 18 mg/dL (7-18) 11/19/17 08:00 Creatinine 0.7 mg/dL (0.7-1.3) 11/19/17 08:00 Creat Clearance w eGFR > 60 (>60) 11/19/17 08:00 Random Glucose 89 mg/dL (74-106) D 11/19/17 08:00 Calcium 8.6 mg/dL (8.5-10.1) 11/19/17 08:00 Total Bilirubin 0.5 mg/dL (0.2-1.0) 11/19/17 08:00 AST 24 U/L (15-37) D 11/19/17 08:00 ALT 24 U/L (12-78) 11/19/17 08:00 Alkaline Phosphatase 52 U/L (45-117) 11/19/17 08:00 Total Protein 6.3 g/dl (6.4-8.2) L 11/19/17 08:00 Albumin 3.3 g/dl (3.4-5.0) L 11/19/17 08:00 Urine Color Yellow 11/20/17 14:40 Urine Appearance Clear 11/20/17 14:40 Urine pH 7.0 (5.0-8.0) D 11/20/17 14:40 Ur Specific [place] 1.016 (1.001-1.035) 11/20/17 14:40 Urine Protein Negative (NEGATIVE) 11/20/17 14:40 Urine Glucose (UA) Negative (NEGATIVE) 11/20/17 14:40 Urine Ketones Negative (NEGATIVE) 11/20/17 14:40 Urine Blood 1+ (NEGATIVE) H 11/20/17 14:40 Urine Nitrite Negative (NEGATIVE) 11/20/17 14:40 Urine Bilirubin Negative (<2.0 mg/dL) 11/20/17 14:40 Urine Urobilinogen Negative mg/dL (0.2-1.0) 11/20/17 14:40 Ur Leukocyte Esterase Negative (NEGATIVE) 11/20/17 14:40 Urine WBC (Auto) 1 /hpf (3-5) 11/20/17 14:40 Urine RBC (Auto) 6 /hpf (0-3) 11/20/17 14:40 Calcium Oxalate Crystal Few /hpf (NONE SEEN) 11/20/17 14:40 Hyaline Casts 1 /lpf 11/20/17 14:40 Urine Mucus Rare 11/20/17 14:40 RPR Titer Nonreactive (NONREACTIVE) 11/19/17 08:00 lab noted Assessment: 11/22/17 15:41 mild withdrawal sx Plan: medically supervised detox
--- NOTE | 2017-11-22 18:24 | PN ---
S Progress Note Note: Vital Signs Temperature 98.2 F 11/22/17 18:02 Pulse Rate 71 11/22/17 18:02 Respiratory Rate 20 11/22/17 18:02 Blood Pressure 117/57 11/22/17 18:02 O2 Sat by Pulse Oximetry (%) c/o of neck pain, no decrease ROM flexeril PRN TP bengay continue to monitor
[2017-11-22] MEDS ORDERED: METHYL SALICYLATE/MENTHOL OINT 30 GM TUBE TP SCH (19:00)
[2017-11-22] MEDS: traZODone HCL 50 MG TABLET (FP) PO SCH (22:05)
[2017-11-22] MEDS: QUEtiapine FUMARATE 25 MG TABLET (FP) PO SCH (22:05)
[2017-11-22] MEDS: THIAMINE HCL 100 MG TABLET (FP) PO SCH (22:09)
[2017-11-22] MEDS: CYCLOBENZAPRINE HCL 10 MG TABLET (FP) PO PRN (22:09)
[2017-11-23] MEDS ORDERED: METHADONE HCL 5 MG TABLET (FOR DETOX USE ONLY) PO ONE (06:00)
[2017-11-23 06:15] VITALS: BP 151/83; PULSE 78; TEMP 98.1
--- NOTE | 2017-11-23 08:23 | PN ---
BHS Progress Note (SOAP) Subjective: i feel better Objective: 11/23/17 08:21 Vital Signs Temperature 98.1 F 11/23/17 06:12 Pulse Rate 78 11/23/17 06:12 Respiratory Rate 18 11/23/17 06:12 Blood Pressure 151/83 11/23/17 06:12 O2 Sat by Pulse Oximetry (%) Laboratory Tests 11/19/17 11/19/17 11/19/17 08:00 08:00 08:00 WBC 9.1 RBC 4.80 Hgb 14.4 Hct 41.9 MCV 87.4 MCH 29.9 MCHC 34.3 RDW 13.5 Plt Count 229 MPV 8.6 Sodium 142 Potassium 3.9 Chloride 105 Carbon Dioxide 28 Anion Gap 9 BUN 18 Creatinine 0.7 Creat Clearance w eGFR > 60 Random Glucose 89 D Calcium 8.6 Total Bilirubin 0.5 AST 24 D ALT 24 Alkaline Phosphatase 52 Total Protein 6.3 L Albumin 3.3 L Urine Color Urine Appearance Urine pH Ur Specific [place] Urine Protein Urine Glucose (UA) Urine Ketones Urine Blood Urine Nitrite Urine Bilirubin Urine Urobilinogen Ur Leukocyte Esterase Urine WBC (Auto) Urine RBC (Auto) Calcium Oxalate Crystal Hyaline Casts Urine Mucus RPR Titer Nonreactive 11/19/17 11/20/17 08:20 14:40 WBC RBC Hgb Hct MCV MCH MCHC RDW Plt Count MPV Sodium Potassium Chloride Carbon Dioxide Anion Gap BUN Creatinine Creat Clearance w eGFR Random Glucose Calcium Total Bilirubin AST ALT Alkaline Phosphatase Total Protein Albumin Urine Color Yellow Yellow Urine Appearance Clear Clear Urine pH 5.0 7.0 D Ur Specific [place] 1.026 1.016 Urine Protein Negative Negative Urine Glucose (UA) Negative Negative Urine Ketones Negative Negative Urine Blood 1+ H 1+ H Urine Nitrite Negative Negative Urine Bilirubin Negative Negative Urine Urobilinogen Negative Negative Ur Leukocyte Esterase Negative Negative Urine WBC (Auto) 2 1 Urine RBC (Auto) 14 6 Calcium Oxalate Crystal Few Hyaline Casts 1 Urine Mucus Few Rare RPR Titer pt lying in bed aox3 in nad Assessment: 11/23/17 08:22 detox completed gerd lbp 11/23/17 08:24 Plan: d/c today to home cont fluid intake
--- NOTE | 2017-11-23 08:27 | DS ---
[facility] Detox Discharge Summary Admission Date: 11/18/17 Discharge Date: 11/23/17 - History Present History: Cannabis Dependence, Opioid Dependence - Physical Exam Results Vital Signs: Vital Signs Temperature 98.1 F 11/23/17 06:12 Pulse Rate 78 11/23/17 06:12 Respiratory Rate 11/23/17 06:12 Blood Pressure 151/83 11/23/17 06:12 O2 Sat by Pulse Oximetry (%) - Medication Discharge Medications: Ambulatory Orders Quetiapine Fumarate [Seroquel -] 25 mg PO HS #30 tablet 07/05/17 traZODone HCL [Desyrel -] 100 mg PO HS 11/18/17 - Diagnosis (1) Cannabis dependence Current Visit: Yes Status: Chronic (2) Opioid dependence with withdrawal Current Visit: Yes Status: Chronic (3) Chronic back pain Current Visit: Yes Status: Chronic Qualifiers: Back pain location: low back pain Back pain laterality: left Sciatica presence: with sciatica Sciatica laterality: sciatica of left side Qualified Code(s): M54.42 - Lumbago with sciatica, left side; G89.29 - Other chronic pain (4) GERD (gastroesophageal reflux disease) Current Visit: Yes Status: Chronic Qualifiers: Esophagitis presence: without esophagitis Qualified Code(s): K21.9 - Gastro -esophageal reflux disease without esophagitis (5) Obesity Current Visit: Yes Status: Chronic Qualifiers: Obesity type: due to excess calories Obesity classification: adult class 2 (BMI 35 - 39.9) Serious obesity comorbidity presence: without serious comorbidity Body mass index: BMI 35.0-35.9 Qualified Code(s): E66.09 - Other obesity due to excess calories; Z68.35 - Body mass index (BMI) 35.0-35.9, adult - AMA Did Patient Leave Against Medical Advice: No
[2017-11-23] MEDS: IBUPROFEN 400 MG TABLET (FP) PO PRN (08:39)
[2017-11-23] MEDS: CYCLOBENZAPRINE HCL 10 MG TABLET (FP) PO PRN (08:39)
== END 2017-11-23 09:43 | disposition home or self-care (01) | DRG 773 ==
LOC: YASAS 10:55 → Y6N 18:09
PROC: HZ2ZZZZ Detoxification Services for Substance Abuse Treatment (ICD-10-PCS; principal; 2017-11-18)
DX: F11.23 Opioid dependence with withdrawal (principal); F12.20 Cannabis dependence, uncomplicated; F11.24 Opioid dependence with opioid-induced mood disorder; F41.9 Anxiety disorder, unspecified; F32.9 Major depressive disorder, single episode, unspecified; G47.00 Insomnia, unspecified; M54.42 Lumbago with sciatica, left side; M25.561 Pain in right knee; M25.562 Pain in left knee; G89.29 Other chronic pain; E66.09 Other obesity due to excess calories; Z68.36 Body mass index [BMI] 36.0-36.9, adult
CPT/HCPCS: 36415; 80053; 81003; 81015; 85027; 86593; 93005; 93010

== ENCOUNTER 2018-01-27 15:32 | Inpatient (IN) | payer OTHER ==
[2018-01-27 16:47] VITALS: BMI 36.9
--- NOTE | 2018-01-27 18:01 | HP ---
"COWS - Scale Resting Pulse: 2= CO 101-120 Sweatin= Beads of Sweat on Face Restless Observation: 5= Unable to Sit Still Pupil Size: 2= Moderately Dilated (Pupils = 4 mm) Bone or Joint Aches: 2= Severe Diffuse Aches Runny Nose/ Eye Tearin= Runny Nose/Eyes GI Upset > 30mins: 2= Nausea/Diarrhea (No diarrhea) Tremor Observation: 4= Gross Tremor/Twitching Yawning Observation: 0= None Anxiety or Irritability: 4=Extreme Anxiety Goose Flesh Skin: 0=Smooth Skin COWS Score: 26 CIWA Score - Admission Criteria [facility]AS[facility] Guidelines: Admission for Medically Managed Detox: Requires at least one of the followin. CIWA greater than 12 2. Seizures within the past 24 hours 3. Delirium tremens within the past 24 hours 4. Hallucinations within the past 24 hours 5. Acute intervention needed for co occurring medical disorder 6. Acute intervention needed for co occurring psychiatric disorder 7. Severe withdrawal that cannot be handled at a lower level of care (continued vomiting, continued diarrhea, abnormal vital signs) requiring intravenous medication and/or fluids 8. Admission ROS [facility] Allergies/Adverse Reactions: Allergies Allergy/AdvReac Type Severity Reaction Status Date / Time No Known Allergies Allergy Verified 01/27/18 17:02 History of Present Illness: Heroin use since age 16. [address] methadone since age 50. Marijuana use since age [age]. Hx: overdoses ( 4-5 x in life) Longest length of sobriety 5 years. States will be starting mental health treatment upon discharge. Patient very anxious and depressed. States fell a week ago and has weakness of (L) leg. Search Terms: Vinod Guerrero, 1965 Search Date: 01/27/2018 06:15:33 PM The Drug Utilization Report below displays all of the controlled substance prescriptions, if any, that your patient has filled in the last twelve months. The information displayed on this report is compiled from pharmacy submissions to the Department, and accurately reflects the information as submitted by the pharmacies. This report was requested by: Elissa Evans | Reference #: [id number] Others' Prescriptions Patient Name: Vinod Guerrero Date: 1965 Address: [address] [place] [address] Sex: Male Rx Written Rx Dispensed Drug Quantity Days Supply Prescriber Name 12/22/2017 12/23/2017 methadone hcl 10 mg tablet 12 4 Pean, Nomi J - Ebola screening Have you traveled outside of the country in the last 21 days: No Have you had contact with anyone from an Ebola affected area: No Have you been sick,other than usual withdrawal symptoms: No Do you have a fever: No - Review of Systems Constitutional: Chills, Diaphoresis, Changes in sleep (Difficulty falling and staying asleep) EENT: reports: Blurred Vision, Other (Hx ringing in ear for years) Respiratory: reports: No Symptoms reported Cardiac: reports: Other (Heaviness of chest x 3 days. States EKG waves are not normal.) GI: reports: Nausea, Indigestion (GERD) : reports: Frequency (and change in flow - denies burning, pain, or blood) Musculoskeletal: reports: Back Pain (r/t withdrawal) Integumentary: reports: No Symptoms Reported Neuro: reports: Numbness (In toes x last month since trying to stop drugs), Tremors Endocrine: reports: No Symptoms Reported Hematology: reports: No Symptoms Reported Psychiatric: reports: Judgement Intact, Orientated x3, Agitated, Anxious, Depressed (Denies thoughts of harming self or others.) Patient History - Patient Medical History Hx Anemia: No Hx Asthma: No Hx Chronic Obstructive Pulmonary Disease (COPD): No Hx Cancer: No Hx Cardiac Disorders: No Hx Congestive Heart Failure: No Hx Hypertension: No Hx Hypercholesterolemia: No Hx Pacemaker: No HX Cerebrovascular Accident: No Hx Seizures: No Hx Dementia: No Hx Diabetes: No Hx Gastrointestinal Disorders: No Hx Liver Disease: No Hx Genitourinary Disorders: No Hx Sexually Transmitted Disorders: No Hx Renal Disease (ESRD): No Hx Thyroid Disease: No Hx Human Immunodeficiency Virus (HIV): No (NEVER TESTED) Hx Hepatitis C: No Hx Depression: Yes Hx Suicide Attempt: No Hx Bipolar Disorder: No Hx Schizophrenia: No - Patient Surgical History Past Surgical History: No Hx Neurologic Surgery: No Hx Cataract Extraction: No Hx Cardiac Surgery: No Hx Lung Surgery: No Hx Breast Surgery: No Hx Breast Biopsy: No Hx Abdominal Surgery: No Hx Appendectomy: No Hx Cholecystectomy: No Hx Genitourinary Surgery: No Hx Section: No Hx Orthopedic Surgery: No Anesthesia Reaction: No - PPD History Previous Implant?: Yes Documented Results: Negative w/proof Implanted On Prior R Admission?: Yes Date: 06/22/17 Results: 0 mm PPD to be Administered?: No - Reproductive History Patient is a Female of Child Bearing Age (11 -55 yrs old): No - Smoking Cessation Smoking history: Never smoked Have you smoked in the past 12 months: No Aproximately how many cigarettes per day: 0 Cigars Per Day: 0 Hx Chewing Tobacco Use: No Initiated information on smoking cessation: No - Substance & Tx. History Hx Alcohol Use: No Hx Substance Use: Yes Substance Use Type: Heroin, Marijuana, Opiates (illicit methadone ) Hx Substance Use Treatment: Yes (detox, rehab) - Substances Abused Heroin Route: Inhalation Frequency: Daily Amount used: 20 bags Age of first use: 16 Date of Last Use: 01/26/18 street methadone Route: Oral Frequency: 1-3 times last 30 days Amount used: 10 mg. Age of first use: 50 Date of Last Use: 01/20/18 Family Disease History - Family Disease History Family Disease History: Diabetes: Brother (two - living ), Heart Disease: Brother, CA: Father (lymphoma/), Mother (breast/), Other: Brother Admission Physical Exam S - Vital Signs Vital Signs: Vital Signs - 24 hr 01/27/18 16:45 Temperature 97.6 F Pulse Rate 115 H Respiratory 18 Rate Blood Pressure 123/96 - Physical General Appearance: Yes: Moderate Distress, Tremorous, Irritable, Sweating, Anxious (Rapid, continuous talking) HEENTM: Yes: EOMI, Hearing grossly Normal, Normocephalic, Normal Voice, ADALBERTO ( Pupils at 4 mm) Respiratory: Yes: Lungs Clear, Normal Breath Sounds, No Respiratory Distress Neck: Yes: No masses,lesions,Nodules, Supple Breast: Yes: Breast Exam Deferred Cardiology: Yes: Regular Rhythm, S1, S2, Tachycardia Abdominal: Yes: Non Tender, Soft, Increased Bowel Sounds, Protuberent ( Increased abdominal adiposity) Genitourinary: Yes: Within Normal Limits Back: Yes: Normal Inspection Musculoskeletal: Yes: full range of Motion, Gait Steady Extremities: Yes: Normal Capillary Refill, Normal Range of Motion, Non-Tender, Tremors (Tremors of hands upon extension of arms) 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: Yes: 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 NML intact, Fully Oriented, Alert, Motor Strength 5/5, Normal Mood/Affect Integumentary: Yes: Normal Color, Dry, Warm Lymphatic: Yes: Within Normal Limits - Diagnostic (1) Depression Current Visit: Yes Status: Chronic Qualifiers: Depression Type: unspecified Qualified Code(s): F32.9 - Major depressive disorder, single episode, unspecified (2) Cannabis dependence Current Visit: Yes Status: Chronic (3) GERD (gastroesophageal reflux disease) Current Visit: Yes Status: Chronic Qualifiers: Esophagitis presence: without esophagitis Qualified Code(s): K21.9 - Gastro -esophageal reflux disease without esophagitis (4) Obesity Current Visit: Yes Status: Chronic Qualifiers: Obesity type: due to excess calories Obesity classification: adult class 2 (BMI 35 - 39.9) Serious obesity comorbidity presence: without serious comorbidity Body mass index: BMI 35.0-35.9 Qualified Code(s): E66.09 - Other obesity due to excess calories; Z68.35 - Body mass index (BMI) 35.0-35.9, adult (5) Opioid dependence with withdrawal Current Visit: Yes Status: Acute (6) Tachycardia Current Visit: Yes Status: Acute BHS Breath Alcohol Content Breath Alcohol Content: 0 Urine Drug Screen - Results Drug Screen Negative: No Urine Drug Screen Results: THC-Marijuana, OPI-Opiates, BZO-Benzodiazepines, MTD- Methadone, OXY-Oxycodone"
[2018-01-27] MEDS ORDERED: MAGNESIUM HYDROX 2400MG/30ML ORAL SUSPENSION 30 ML CUP PO PRN (18:43)
[2018-01-27] MEDS ORDERED: MENTHOL/PHENOL 1 EACH UD MM PRN (18:43)
[2018-01-27] MEDS ORDERED: LOPERAMIDE HCL 2 MG CAPSULE PO PRN (18:43)
[2018-01-27] MEDS ORDERED: MAG HYDROX/AL HYDROX/SIMETH 30 ML UNIT-DOSE CUP PO PRN (18:43)
[2018-01-27] MEDS ORDERED: MAGNESIUM CITRATE 300 ML BOTTLE PO PRN (18:43)
[2018-01-27] MEDS: diazePAM 5 MG TABLET PO PRN (21:06)
[2018-01-27] MEDS ORDERED: METHADONE HCL 10 MG TABLET (FOR DETOX USE ONLY) PO ONE ×2 (21:15→23:00)
[2018-01-27] MEDS ORDERED: MELATONIN 5 MG TABLETS PO PRN (22:00)
[2018-01-27] MEDS: RANITIDINE HCL 150 MG TABLET (FP) PO SCH (22:25)
[2018-01-27] MEDS: THIAMINE HCL 100 MG TABLET (FP) PO SCH (22:25)
[2018-01-28] MEDS: diazePAM 5 MG TABLET PO PRN ×5 (01:20→22:36)
[2018-01-28] MEDS ORDERED: hydrOXYzine PAMOATE 50 MG CAPSULE (FP) PO ONE (02:49)
[2018-01-28] MEDS ORDERED: METHADONE HCL 10 MG TABLET (FOR DETOX USE ONLY) PO ONE (10:00)
--- NOTE | 2018-01-28 10:24 | CONSULT ---
[facility] Psychiatric Consult - Data Date of interview: 01/28/18 Admission source: [facility] Identifying data: Readmission to [facility] for this 52 y/o male, self- referred for detoxification treatment for heroin and cannabis dependence. Patient is without children, domiciled, unemployed and supported by his spouse. Mr Guerrero is a [employer] . Served years ([phone]). Was stationed in [place] prior to his discharge (reportedly honorable) in 1986. Substance Abuse History: Discussed with the patient. Mr Guerrero confirms an enduring history of heroin + street methadone since age 16. Details in current [facility] report : Smoking history: Never smoked. Have you smoked in the past 12 months: No. Aproximately how many cigarettes per day: 0. Cigars Per Day: 0. Hx Chewing Tobacco Use: No. Initiated information on smoking cessation: No. - Substance & Tx. History. Hx Alcohol Use: No. Hx Substance Use: Yes. Substance Use Type: Heroin, Marijuana, Opiates (illicit methadone ). Hx Substance Use Treatment: Yes (detox, rehab). - Substances Abused. Heroin. Route: Inhalation. Frequency: Daily. Amount used: 20 bags. Age of first use: 16. Date of Last Use: 01/26/18. street methadone. Route: Oral. Frequency : 1-3 times last 30 days. Amount used: 10 mg. Age of first use: 50. Date of Last Use: 01/20/18 Medical History: Obesity, GERD and dyslipidemia. Psychiatric History: Patient denies history of psychiatric hospitalizations or suicide attempts. Mr Guerrero indicates that he is still seeing a psychiatrist at the [facility] for chronic insomnia. Medicated with seroquel 50 mg/hs + trazodone 100 mg/hs.Patient reports that he took these medications just prior to this [facility] visit. Physical/Sexual Abuse/Trauma History: No history. Additional Comment: Urine Drug Screen Results: THC-Marijuana, OPI-Opiates, BZO- Benzodiazepines, MTD-Methadone, OXY-Oxycodone. Noted. Mental Status Exam - Mental Status Exam Alert and Oriented to: Time, Place, Person Cognitive Function: Good Patient Appearance: Well Groomed (obese) Mood: Withdrawn, Anxious Affect: Mood Congruent, Constricted Patient Behavior: Fatigued, Appropriate, Cooperative Speech Pattern: Clear Voice Loudness: Normal Thought Process: Intact, Goal Oriented Thought Disorder: Not Present Hallucinations: Denies Suicidal Ideation: Denies Homicidal Ideation: Denies Insight/Judgement: Poor Sleep: Poorly, Difficulty falling asleep Appetite: Good Muscle strength/Tone: Normal Gait/Station: Normal Psychiatric Findings - Problem List (Renovo 1, 2,3) (1) Opioid dependence with withdrawal Current Visit: Yes Status: Acute (2) Cannabis dependence Current Visit: Yes Status: Acute (3) Substance induced mood disorder Current Visit: Yes Status: Acute (4) Insomnia Current Visit: Yes Status: Acute - Initial Treatment Plan Initial Treatment Plan: Psychoeducation : briefed about the deleterious effects of substance abuse in several domains (risk of fatal overdose, straining of interpersonal relationships, compromission of support network, legal problems, vocational issues, psychiatric co-morbidities) ; made aware of resources available in the community for relapse prevention : FDA-certified medications ( suboxone, RAMIRES opioid antagonist), counseling, NA fellowship, CBT psychotherapy. Sleep hygiene. Detoxification in progress. Patient is encouraged to pursue rehabilitation at the completion of this program. Resumed : seroquel 50 mg po hs + trazodone 100 mg po hs. Side effects/benefits revisited with the patient. Informed of the potential for metabolic syndrome, abnormal involuntary movements and priapism. Patient aknowledges his understanding of the information and he consents (verbally) to remain on this regimen. Observation.
[2018-01-28] MEDS: PRENATAL VITAMINS W/ FOLIC ACID TABLET (FP) PO SCH (10:28)
[2018-01-28] MEDS: RANITIDINE HCL 150 MG TABLET (FP) PO SCH ×2 (10:28→22:34)
[2018-01-28 10:41] LABS: HEMATOCRIT 42.4 % (35.4-49); HEMOGLOBIN 13.7 GM/dL (11.7-16.9); MCH 28.4 pg (25.7-33.7); MCHC 32.3 g/dl (32.0-35.9); MEAN CELL VOLUME 87.9 fl (80-96); MEAN PLT VOLUME 8.4 fl (7.5-11.1); PLATELET COUNT 247 K/MM3 (134-434); RBC 4.82 M/mm3 (4.00-5.60); RDW 14.3 % (11.9-15.9); WHITE BLOOD COUNT 11.6 K/mm3 (4.0-10.0)
[2018-01-28 10:49] LABS: ALBUMIN 3.3 g/dl (3.4-5.0); ALK PHOS 65 U/L (45-117); ANION GAP 9 MMOL/L (8-16); BILIRUBIN,TOTAL 0.4 mg/dL (0.2-1); BLOOD UREA NITROGEN 20 mg/dL (7-18); CALCIUM 8.2 mg/dL (8.5-10.1); CHLORIDE 105 mmol/L (98-107); CO2 26 mmol/L (21-32); GLUCOSE,RANDOM 95 mg/dL (74-106); SGOT/AST 11 U/L (15-37); SGPT/ALT 21 U/L (13-61); SODIUM 140 mmol/L (136-145); TOT PROT 6.4 g/dl (6.4-8.2)
--- NOTE | 2018-01-28 11:16 | PN ---
BHS COWS - Scale Resting Pulse: 1= MT 81-100 Sweatin= No chills or Flushing Restless Observation: 1= Difficult to Sit Still Pupil Size: 2= Moderately Dilated Bone or Joint Aches: 2= Severe Diffuse Aches Runny Nose/ Eye Tearin= None GI Upset > 30mins: 2= Nausea/Diarrhea Tremor Observation of Outstretched Hands: 2= Slight Tremor Visible Yawning Observation: 0= None Anxiety or Irritability: 2=Irritable/Anxious Goose Flesh Skin: 0=Smooth Skin COWS Score: 12 BHS Progress Note (SOAP) Subjective: PATIENT ANXIOUS/PACING IN HALLWAY. C/O SWEATING, SHAKES AND DIARRHEA. Objective: 01/28/18 11:15 Vital Signs Temperature 97.2 F L 01/28/18 09:57 Pulse Rate 77 01/28/18 09:57 Respiratory Rate 18 01/28/18 09:57 Blood Pressure 146/80 01/28/18 09:57 O2 Sat by Pulse Oximetry (%) Laboratory Tests 01/28/18 01/28/18 08:00 08:00 WBC 11.6 H RBC 4.82 Hgb 13.7 Hct 42.4 MCV 87.9 MCH 28.4 MCHC 32.3 RDW 14.3 Plt Count 247 MPV 8.4 Sodium 140 Potassium 4.0 Chloride 105 Carbon Dioxide 26 Anion Gap 9 BUN 20 H Creatinine 1.0 Creat Clearance w eGFR > 60 Random Glucose 95 Calcium 8.2 L Total Bilirubin 0.4 AST 11 L ALT 21 Alkaline Phosphatase 65 Total Protein 6.4 Albumin 3.3 L PE: SKIN WARM, + FACIAL MOISTURE ALERT AND ORIENTED X 3 EXT FULL ROM, +TREMORS AMB AD AJITH ANXIOUS/RESTLESS Assessment: 01/28/18 11:16 WITHDRAWAL SX Plan: CONTINUE DETOX REGIMEN ENCOURAGE ORAL FLUIDS CONTINUE TO MONITOR CLINICALLY
[2018-01-28 20:26] LABS: URINE APPEARANCE CLEAR; URINE BILIRUBIN NEGATIVE (<2.0 mg/dL); URINE COLOR LTYELLOW; URINE GLUCOSE (UA) NEGATIVE (NEGATIVE); URINE KETONE NEGATIVE (NEGATIVE); URINE LEUK ESTERASE NEGATIVE (NEGATIVE); URINE NITRITE NEGATIVE (NEGATIVE); URINE PROTEIN NEGATIVE (NEGATIVE); URINE UROBILINOGEN NEGATIVE mg/dL (0.2-1.0)
[2018-01-28 20:30] LABS: URINE MUCUS RARE
[2018-01-28] MEDS: THIAMINE HCL 100 MG TABLET (FP) PO SCH (22:34)
[2018-01-28] MEDS: traZODone HCL 100 MG TABLET (FP) PO SCH (22:34)
[2018-01-28] MEDS: QUEtiapine FUMARATE 50 MG TABLET PO SCH (22:34)
[2018-01-29] MEDS: diazePAM 5 MG TABLET PO PRN ×4 (05:20→22:29)
[2018-01-29] MEDS ORDERED: METHADONE HCL 5 MG TABLET (FOR DETOX USE ONLY) PO ONE (10:00)
[2018-01-29] MEDS: PRENATAL VITAMINS W/ FOLIC ACID TABLET (FP) PO SCH (10:13)
[2018-01-29] MEDS: RANITIDINE HCL 150 MG TABLET (FP) PO SCH ×2 (10:14→22:29)
--- NOTE | 2018-01-29 14:03 | PN ---
BHS COWS - Scale Resting Pulse: 0= VT 80 or Below Sweatin= Chills/Flushing Restless Observation: 3= Extraneous Movement Pupil Size: 0= Normal to Room Light Bone or Joint Aches: 2= Severe Diffuse Aches Runny Nose/ Eye Tearin= Runny Nose/Eyes GI Upset > 30mins: 2= Nausea/Diarrhea Tremor Observation of Outstretched Hands: 2= Slight Tremor Visible Yawning Observation: 1= 1-2x During Session Anxiety or Irritability: 2=Irritable/Anxious Goose Flesh Skin: 0=Smooth Skin COWS Score: 15 BHS Progress Note (SOAP) Subjective: Sweating, stomach ache, anxious Objective: 01/29/18 13:56 Last Vital Signs Temp Pulse Resp BP Pulse Ox 98.2 F 77 16 100/67 01/29/18 13:47 01/29/18 13:47 01/29/18 13:47 01/29/18 13:47 Laboratory Tests 01/28/18 01/28/18 01/28/18 08:00 08:00 08:00 WBC 11.6 H RBC 4.82 Hgb 13.7 Hct 42.4 MCV 87.9 MCH 28.4 MCHC 32.3 RDW 14.3 Plt Count 247 MPV 8.4 Sodium 140 Potassium 4.0 Chloride 105 Carbon Dioxide 26 Anion Gap 9 BUN 20 H Creatinine 1.0 Creat Clearance w eGFR > 60 Random Glucose 95 Calcium 8.2 L Total Bilirubin 0.4 AST 11 L ALT 21 Alkaline Phosphatase 65 Total Protein 6.4 Albumin 3.3 L Urine Color Urine Appearance Urine pH Ur Specific [place] Urine Protein Urine Glucose (UA) Urine Ketones Urine Blood Urine Nitrite Urine Bilirubin Urine Urobilinogen Ur Leukocyte Esterase Urine WBC (Auto) Urine RBC (Auto) Urine Mucus RPR Titer Nonreactive 01/28/18 17:18 WBC RBC Hgb Hct MCV MCH MCHC RDW Plt Count MPV Sodium Potassium Chloride Carbon Dioxide Anion Gap BUN Creatinine Creat Clearance w eGFR Random Glucose Calcium Total Bilirubin AST ALT Alkaline Phosphatase Total Protein Albumin Urine Color Ltyellow Urine Appearance Clear Urine pH 5.0 D Ur Specific [place] 1.016 Urine Protein Negative Urine Glucose (UA) Negative Urine Ketones Negative Urine Blood 1+ H Urine Nitrite Negative Urine Bilirubin Negative Urine Urobilinogen Negative Ur Leukocyte Esterase Negative Urine WBC (Auto) 1 Urine RBC (Auto) 7 Urine Mucus Rare RPR Titer Labs reviewed: wbc 11.6, bun 20, UA shows 1+ blood Assessment: 01/29/18 13:59 Withdrawal symptoms Noted with leukocytosis, azotemia and microscopic hematuria Plan: Continue detox Leukocytosis:asymptomatic, repeat cbc, send urine cx Azotemia: encouraged PO water intake Microscopic hematuria: repeat UA
[2018-01-29] MEDS: IBUPROFEN 400 MG TABLET (FP) PO PRN (17:22)
[2018-01-29] MEDS: traZODone HCL 100 MG TABLET (FP) PO SCH (22:29)
[2018-01-29] MEDS: THIAMINE HCL 100 MG TABLET (FP) PO SCH (22:29)
[2018-01-29] MEDS: QUEtiapine FUMARATE 50 MG TABLET PO SCH (22:29)
[2018-01-29 23:13] LABS: URINE APPEARANCE TURBID; URINE BILIRUBIN NEGATIVE (<2.0 mg/dL); URINE COLOR AMBER; URINE GLUCOSE (UA) NEGATIVE (NEGATIVE); URINE KETONE NEGATIVE (NEGATIVE); URINE LEUK ESTERASE NEGATIVE (NEGATIVE); URINE NITRITE NEGATIVE (NEGATIVE); URINE PROTEIN NEGATIVE (NEGATIVE); URINE UROBILINOGEN NEGATIVE mg/dL (0.2-1.0)
[2018-01-30] MEDS: diazePAM 5 MG TABLET PO PRN ×3 (04:01→16:46)
[2018-01-30] MEDS ORDERED: METHADONE HCL 5 MG TABLET (FOR DETOX USE ONLY) PO ONE (10:00)
[2018-01-30] MEDS: RANITIDINE HCL 150 MG TABLET (FP) PO SCH ×2 (10:15→22:23)
[2018-01-30] MEDS: PRENATAL VITAMINS W/ FOLIC ACID TABLET (FP) PO SCH (10:15)
[2018-01-30] MEDS: IBUPROFEN 400 MG TABLET (FP) PO PRN ×2 (10:25→16:46)
[2018-01-30 10:30] LABS: BASO % 1.7 % (0-2.0); EOS % 5.9 % (0-4.5); HEMATOCRIT 43.7 % (35.4-49); HEMOGLOBIN 14.4 GM/dL (11.7-16.9); LYMPH % 31.8 % (8-40); MCH 28.9 pg (25.7-33.7); MCHC 32.9 g/dl (32.0-35.9); MEAN CELL VOLUME 87.8 fl (80-96); MEAN PLT VOLUME 8.5 fl (7.5-11.1); NEUT % 52.6 % (42.8-82.8); PLATELET COUNT 245 K/MM3 (134-434); RBC 4.98 M/mm3 (4.00-5.60); RDW 14.2 % (11.9-15.9); WHITE BLOOD COUNT 8.3 K/mm3 (4.0-10.0)
--- NOTE | 2018-01-30 14:38 | PN ---
BHS Progress Note (SOAP) Subjective: Still c/o sweating and shakes, but admits it's a lot less. Denies nausea/ vomiting. Objective: A&O x 3. Gait steady. Abd S/NT/BS+. Mild tremors of hands when arms extended. Respirations quiet and unlabored. HR: regular rhythm Vital Signs 01/30/18 09:41 Temperature 97.9 F Pulse Rate 80 Respiratory 18 Rate Blood Pressure 130/90 Lab Results WBC 8.3 K/mm3 (4.0-10.0) 01/30/18 07:00 RBC 4.98 M/mm3 (4.00-5.60) 01/30/18 07:00 Hgb 14.4 GM/dL (11.7-16.9) 01/30/18 07:00 Hct 43.7 % (35.4-49) 01/30/18 07:00 MCV 87.8 fl (80-96) 01/30/18 07:00 MCHC 32.9 g/dl (32.0-35.9) 01/30/18 07:00 RDW 14.2 % (11.9-15.9) 01/30/18 07:00 Plt Count 245 K/MM3 (134-434) 01/30/18 07:00 Sodium 140 mmol/L (136-145) 01/28/18 08:00 Potassium 4.0 mmol/L (3.5-5.1) 01/28/18 08:00 Chloride 105 mmol/L (98-107) 01/28/18 08:00 Carbon Dioxide 26 mmol/L (21-32) 01/28/18 08:00 Anion Gap 9 MMOL/L (8-16) 01/28/18 08:00 BUN 20 mg/dL (7-18) H 01/28/18 08:00 Creatinine 1.0 mg/dL (0.55-1.3) 01/28/18 08:00 Random Glucose 95 mg/dL (74-106) 01/28/18 08:00 Calcium 8.2 mg/dL (8.5-10.1) L 01/28/18 08:00 Labs reviewed. Assessment: Withdrawal symptoms. Plan: Continue detox.
[2018-01-30] MEDS: traZODone HCL 100 MG TABLET (FP) PO SCH (22:23)
[2018-01-30] MEDS: QUEtiapine FUMARATE 50 MG TABLET PO SCH (22:23)
[2018-01-30] MEDS: THIAMINE HCL 100 MG TABLET (FP) PO SCH (22:23)
[2018-01-30] MEDS: ACETAMINOPHEN 325 MG TABLET (FP) PO PRN (22:24)
--- NOTE | 2018-01-30 23:55 | EKG ---
Test Reason : Blood Pressure : / mmHG Vent. Rate : 089 BPM Atrial Rate : 089 BPM P-R Int : 166 ms QRS Dur : 094 ms QT Int : 370 ms P-R-T Axes : 054 007 027 degrees QTc Int : 450 ms NORMAL SINUS RHYTHM POSSIBLE LEFT ATRIAL ENLARGEMENT POSSIBLE INFERIOR INFARCT , AGE UNDETERMINED ABNORMAL ECG WHEN COMPARED WITH ECG OF 18-NOV-2017 19:38, NO SIGNIFICANT CHANGE WAS FOUND Confirmed by MARYAN TAYLOR MD ([id number]) on 01/30/2018 11:55:03 PM Referred By: Confirmed By:MARYAN TAYLOR MD
[2018-01-31] MEDS: IBUPROFEN 400 MG TABLET (FP) PO PRN (06:55)
[2018-01-31 09:27] VITALS: BP 108/63; PULSE 74; TEMP 97
[2018-01-31] MEDS ORDERED: METHADONE HCL 5 MG TABLET (FOR DETOX USE ONLY) PO ONE (09:38)
[2018-01-31] MEDS ORDERED: METHADONE HCL 10 MG TABLET (FOR DETOX USE ONLY) PO ONE (10:00)
[2018-01-31] MEDS: PRENATAL VITAMINS W/ FOLIC ACID TABLET (FP) PO SCH (10:18)
[2018-01-31] MEDS: RANITIDINE HCL 150 MG TABLET (FP) PO SCH (10:18)
[2018-01-31] MEDS: ACETAMINOPHEN 325 MG TABLET (FP) PO PRN (10:19)
--- NOTE | 2018-01-31 10:30 | PN ---
[facility] Progress Note Note: PATIENT TO COMPLETE DETOX TODAY, METHADONE DOSE ADJUSTED TO 5MG PATIENT STATES HE FEELS WELL AND DENIES HEADACHE, CHILLS, N/V/D, SHAKES AND RESTLESSNESS. PATIENT ACCEPTED REHAB REFERRAL TO [facility]. PATIENT ENCOURAGED TO COMPLETE REHAB TO PREVENT RELAPSE. Laboratory Tests 01/28/18 01/28/18 01/28/18 08:00 08:00 08:00 WBC 11.6 H RBC 4.82 Hgb 13.7 Hct 42.4 MCV 87.9 MCH 28.4 MCHC 32.3 RDW 14.3 Plt Count 247 MPV 8.4 Absolute Neuts (auto) Neutrophils % Lymphocytes % Monocytes % Eosinophils % Basophils % Nucleated RBC % Sodium 140 Potassium 4.0 Chloride 105 Carbon Dioxide 26 Anion Gap 9 BUN 20 H Creatinine 1.0 Creat Clearance w eGFR > 60 Random Glucose 95 Calcium 8.2 L Total Bilirubin 0.4 AST 11 L ALT 21 Alkaline Phosphatase 65 Total Protein 6.4 Albumin 3.3 L Urine Color Urine Appearance Urine pH Ur Specific [place] Urine Protein Urine Glucose (UA) Urine Ketones Urine Blood Urine Nitrite Urine Bilirubin Urine Urobilinogen Ur Leukocyte Esterase Urine WBC (Auto) Urine RBC (Auto) Urine Mucus RPR Titer Nonreactive 01/28/18 01/29/18 01/30/18 17:18 18:18 07:00 WBC 8.3 RBC 4.98 Hgb 14.4 Hct 43.7 MCV 87.8 MCH 28.9 MCHC 32.9 RDW 14.2 Plt Count 245 MPV 8.5 Absolute Neuts (auto) 4.4 Neutrophils % 52.6 D Lymphocytes % 31.8 D Monocytes % 8.0 Eosinophils % 5.9 H D Basophils % 1.7 Nucleated RBC % 0 Sodium Potassium Chloride Carbon Dioxide Anion Gap BUN Creatinine Creat Clearance w eGFR Random Glucose Calcium Total Bilirubin AST ALT Alkaline Phosphatase Total Protein Albumin Urine Color Ltyellow [place] Urine Appearance Clear Turbid Urine pH 5.0 D 5.0 Ur Specific [place] 1.016 1.020 Urine Protein Negative Negative Urine Glucose (UA) Negative Negative Urine Ketones Negative Negative Urine Blood 1+ H Negative Urine Nitrite Negative Negative Urine Bilirubin Negative Negative Urine Urobilinogen Negative Negative Ur Leukocyte Esterase Negative Negative Urine WBC (Auto) 1 Urine RBC (Auto) 7 Urine Mucus Rare RPR Titer Microbiology 01/29/18 18:18 Urine Culture - Preliminary Urine - Urine Clean Catch Staphylococcus Latex Coag Pos Group D Strep Or Entero Coccus PE: ALERT AND ORIENTED X 3 SKIN WARM AND DRY EXT NO TREMORS AMB AD AJITH DETOX COMPLETED URINE C/S APPRECIATED: PATIENT AFEBRILE AND WBC COUNT NORMAL. COLONIES LESS THAN 20,000. ORAL FLUIDS ENCOURAGED. CONTINUE TO MONITOR D/C TO REHAB.
--- NOTE | 2018-01-31 10:31 | DS ---
[facility] Detox Discharge Summary Admission Date: 01/27/18 Discharge Date: 01/31/18 - History Present History: Opioid Dependence - Physical Exam Results Vital Signs: Vital Signs Temperature 97 F L 01/31/18 09:26 Pulse Rate 74 01/31/18 09:26 Respiratory Rate 16 01/31/18 09:26 Blood Pressure 108/63 01/31/18 09:26 O2 Sat by Pulse Oximetry (%) - Treatment Hospital Course: Detox Protocol Followed, Detoxed Safely, Responded well, Discharged Condition Good, Rehab Referral Accepted Patient has Accepted a Rehab Referral to: [facility] - Medication Discharge Medications: Ambulatory Orders traZODone HCL [Desyrel -] 100 mg PO HS 11/18/17 Quetiapine Fumarate [Seroquel -] 50 mg PO HS 01/27/18 - Diagnosis (1) Opioid dependence with withdrawal Current Visit: Yes Status: Resolved - AMA Did Patient Leave Against Medical Advice: No
[2018-02-01] MEDS ORDERED: METHADONE HCL 5 MG TABLET (FOR DETOX USE ONLY) PO ONE (06:00)
== END 2018-01-31 11:30 | disposition other institution (70) | DRG 773 ==
LOC: YASAS 15:32 → Y3N 19:11
PROC: HZ2ZZZZ Detoxification Services for Substance Abuse Treatment (ICD-10-PCS; principal; 2018-01-27)
DX: F11.23 Opioid dependence with withdrawal (principal); F12.20 Cannabis dependence, uncomplicated; F19.24 Other psychoactive substance dependence with psychoactive substance-induced mood disorder; F32.9 Major depressive disorder, single episode, unspecified; G47.00 Insomnia, unspecified; K21.9 Gastro-esophageal reflux disease without esophagitis; R00.0 Tachycardia, unspecified; R31.29 Other microscopic hematuria; D72.829 Elevated white blood cell count, unspecified; R79.89 Other specified abnormal findings of blood chemistry; Z68.36 Body mass index [BMI] 36.0-36.9, adult
CPT/HCPCS: 36415; 80053; 81003; 81015; 85025; 85027; 86593; 87086; 87186; 93005; 93010

== ENCOUNTER 2018-01-31 11:39 | Inpatient (IN) | payer OTHER ==
[2018-01-31 12:02] VITALS: BMI 37.7
[2018-01-31] MEDS ORDERED: MAGNESIUM CITRATE 300 ML BOTTLE PO PRN (12:19)
[2018-01-31] MEDS ORDERED: guaiFENesin/D-METHORPHAN HB 10 ML UNIT-DOSE CUPS PO PRN (12:19)
[2018-01-31] MEDS ORDERED: P-EPHED 60MG/TRIPROLIDI 2.5MG TABLET PO PRN (12:19)
[2018-01-31] MEDS ORDERED: MAG HYDROX/AL HYDROX/SIMETH 30 ML UNIT-DOSE CUP PO PRN (12:19)
[2018-01-31] MEDS ORDERED: MAGNESIUM HYDROX 2400MG/30ML ORAL SUSPENSION 30 ML CUP PO PRN (12:19)
[2018-01-31] MEDS ORDERED: LOPERAMIDE HCL 2 MG CAPSULE PO PRN (12:19)
[2018-01-31] MEDS ORDERED: hydrOXYzine PAMOATE 50 MG CAPSULE (FP) PO PRN (12:19)
[2018-01-31] MEDS ORDERED: MENTHOL/PHENOL 1 EACH UD MM PRN (12:19)
--- NOTE | 2018-01-31 12:22 | HP ---
[facility] Rehab Assess/Revision - Admission History Admitted to Rehab from: [facility] [place] - Vital signs Vital Signs: Vital Signs Period Temp Pulse Resp BP Sys/Sheehan Pulse Ox Last 24 Hr 83 18 130/90 - Findings Detox History & Physical reviewed: Yes Concur with findings: Yes Inpatient Rehab Admission - Initial Determination Are CD services needed?: Yes Free of communicable disease: Yes Not in need of hospitalization: Yes - Rehab Admission Criteria Previous failed treatment: Yes Poor recovery environment: Yes Comorbidities: Yes Lacks judgement: No Patient is meeting Inpatient Rehab admission criteria:: Yes
[2018-01-31] MEDS ORDERED: cloNIDine HCL 0.1 MG TABLET PO ONE (14:05)
[2018-01-31] MEDS: CYCLOBENZAPRINE HCL 10 MG TABLET (FP) PO SCH ×2 (14:08→21:43)
--- NOTE | 2018-01-31 17:00 | PN ---
S Progress Note Note: Requested by nursing staff to order medication for newly admitted patient from detox. Medication reconciliation done and Trazadone 100 mg po HS ordered
[2018-01-31] MEDS: IBUPROFEN 400 MG TABLET (FP) PO PRN (21:46)
[2018-01-31] MEDS: THIAMINE HCL 100 MG TABLET (FP) PO SCH (21:46)
[2018-01-31] MEDS: traZODone HCL 100 MG TABLET (FP) PO SCH (21:46)
[2018-01-31] MEDS: RANITIDINE HCL 150 MG TABLET (FP) PO SCH (21:46)
[2018-01-31] MEDS ORDERED: MELATONIN 5 MG TABLETS PO PRN (22:00)
[2018-02-01] MEDS: CYCLOBENZAPRINE HCL 10 MG TABLET (FP) PO SCH ×3 (06:08→23:34)
--- NOTE | 2018-02-01 06:20 | HP ---
Psychiatrist Admission - Data Date of interview: 02/01/18 Admission source: 3N Identifying data: This is the third [facility] admission for this 52 years old male, unemployed supported by spouse, domiciled Medical History: Significant for dyslipidemia, obesity and GERD. Psychiatric History: Patient denies history of psychiatric treatment. However that he is currently seeing a psychiatrist at the [facility] for the treatment of insomnia. He is prescribed Trazadone 50 mg po HS and Seroquel 50 mg o HS. Denies history of previous psychiatric hospitalization or suicidal attempt. At present, reports feeling depressed and sleeping poorly. Physical/Sexual Abuse/Trauma History: Denies history of emotional, physical or sexual abuse as well as DV relationship. 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 Discharge was honorable Additional Comment: Denies criminal history Vital Signs: Vital Signs - 24 hr 01/31/18 02/01/18 02/01/18 11:49 00:30 03:30 Pulse Rate 83 Respiratory 18 20 18 Rate Blood Pressure 130/90 Allergies/Adverse Reactions: Allergies Allergy/AdvReac Type Severity Reaction Status Date / Time No Known Allergies Allergy Verified 01/31/18 11:47 Date of last physical exam: 01/27/18 Concur with the findings of this exam: Yes - Substance Abuse/Tx History Hx Alcohol Use: No Hx Substance Use: Yes Substance Use Type: Heroin (Started using heroin at age 16, consumes 20 bags daily. Last used on 01/26/18), Marijuana (Started smoking marijuana at age 16, consumes one joint 3-6 times weekly), Opiates (Started using street methadone at age 50, conssumes 10 mg 1-3 times in the last 30 days. Last used on 01/20/18) Hx Substance Use Treatment: Yes (6 previous inpt detox & 2 inpt rehab admissions @ [facility]) Mental Status Exam - Mental Status Exam Alert and Oriented to: Time, Place, Person Cognitive Function: Fair Patient Appearance: Well Groomed Mood: Depressed Affect: Appropriate Patient Behavior: Cooperative Speech Pattern: Clear Voice Loudness: Normal Thought Process: Intact, Goal Oriented Hallucinations: Denies Suicidal Ideation: Denies Homicidal Ideation: Denies Insight/Judgement: Fair Sleep: Poorly Appetite: Good Muscle strength/Tone: Normal Gait/Station: Normal Psychiatric Findings - Problem List ([place] 1, 2,3) (1) Opioid dependence Current Visit: No Status: Acute (2) Cannabis dependence Current Visit: No Status: Chronic (3) Substance induced mood disorder Current Visit: No Status: Acute (4) Substance-induced sleep disorder Current Visit: No Status: Acute (5) Chronic back pain Current Visit: No Status: Chronic Qualifiers: Back pain location: low back pain Back pain laterality: left Sciatica presence: with sciatica Sciatica laterality: sciatica of left side Qualified Code(s): M54.42 - Lumbago with sciatica, left side; G89.29 - Other chronic pain (6) GERD (gastroesophageal reflux disease) Current Visit: No Status: Chronic Qualifiers: Esophagitis presence: without esophagitis Qualified Code(s): K21.9 - Gastro -esophageal reflux disease without esophagitis (7) Obesity Current Visit: No Status: Chronic Qualifiers: Obesity type: due to excess calories Obesity classification: adult class 2 (BMI 35 - 39.9) Serious obesity comorbidity presence: without serious comorbidity Body mass index: BMI 36.0-36.9 Qualified Code(s): E66.09 - Other obesity due to excess calories; Z68.36 - Body mass index (BMI) 36.0-36.9, adult (8) Dyslipidemia Current Visit: Yes Status: Chronic - Initial Treatment Plan Initial Treatment Plan: 1) Start Trazadone 100 mg po HS and Belsomra 10 mg po HS prn for insomnia. 2) Monitor progress
[2018-02-01] MEDS: IBUPROFEN 400 MG TABLET (FP) PO PRN ×3 (06:38→23:53)
[2018-02-01] MEDS: PRENATAL VITAMINS W/ FOLIC ACID TABLET (FP) PO SCH (10:28)
[2018-02-01] MEDS: RANITIDINE HCL 150 MG TABLET (FP) PO SCH ×2 (10:28→23:35)
[2018-02-01] MEDS: ACETAMINOPHEN 325 MG TABLET (FP) PO PRN ×2 (10:30→17:55)
[2018-02-01] MEDS ORDERED: SUVOREXANT 10 MG TABLET PO PRN (22:00)
[2018-02-01] MEDS: traZODone HCL 100 MG TABLET (FP) PO SCH (23:34)
[2018-02-01] MEDS: THIAMINE HCL 100 MG TABLET (FP) PO SCH (23:34)
[2018-02-02] MEDS: IBUPROFEN 400 MG TABLET (FP) PO PRN ×3 (04:53→16:51)
[2018-02-02] MEDS: CYCLOBENZAPRINE HCL 10 MG TABLET (FP) PO SCH ×3 (06:15→21:50)
[2018-02-02] MEDS: ACETAMINOPHEN 325 MG TABLET (FP) PO PRN (06:17)
[2018-02-02] MEDS: PRENATAL VITAMINS W/ FOLIC ACID TABLET (FP) PO SCH (10:20)
[2018-02-02] MEDS: RANITIDINE HCL 150 MG TABLET (FP) PO SCH ×2 (10:20→21:50)
[2018-02-02] MEDS: METHYL SALICYLATE/MENTHOL OINT 30 GM TUBE TP SCH ×2 (17:54→21:49)
[2018-02-02] MEDS: traZODone HCL 100 MG TABLET (FP) PO SCH (21:50)
[2018-02-02] MEDS: THIAMINE HCL 100 MG TABLET (FP) PO SCH (21:51)
[2018-02-03] MEDS: IBUPROFEN 400 MG TABLET (FP) PO PRN ×2 (02:03→08:25)
[2018-02-03] MEDS: CYCLOBENZAPRINE HCL 10 MG TABLET (FP) PO SCH (06:08)
[2018-02-03] MEDS: ACETAMINOPHEN 325 MG TABLET (FP) PO PRN ×2 (06:08→17:27)
[2018-02-03] MEDS: METHYL SALICYLATE/MENTHOL OINT 30 GM TUBE TP SCH ×2 (10:26→22:05)
[2018-02-03] MEDS: RANITIDINE HCL 150 MG TABLET (FP) PO SCH ×2 (10:26→22:05)
[2018-02-03] MEDS: PRENATAL VITAMINS W/ FOLIC ACID TABLET (FP) PO SCH (10:26)
--- NOTE | 2018-02-03 13:54 | PN ---
BHS Progress Note (SOAP) Subjective: c/o pain in muscles in thighs which hurts when stands, sits, and lays down. Pain medication and flexeril not working. Objective: A&O x 3. Ambulating w/ steady gait. FROM BLE. (+) toe wiggles. Pedal pulses (+). No pedal edema. Vital Signs - 24 hr 02/03/18 02/03/18 02/03/18 00:30 03:30 07:07 Pulse Rate 81 Respiratory 16 16 18 Rate Blood Pressure 143/93 Lab reports from and reviewed. EKG from 01/27. reviewed. Assessment: Muscle/Bone pain. Early remission opiates and cannabis.. Plan: Reviewed lab results and EKG w/ patient. Encouraged to f/u w/ PCP and cardiology upon discharge. D/C flexeril and start Robaxin. Increase ibuprofen to 600 mg. Continue to f/u. as necessary.
[2018-02-03] MEDS: METHOCARBAMOL 500 MG TABLET PO SCH ×2 (15:57→22:05)
[2018-02-03] MEDS: IBUPROFEN 600 MG TABLET (FP) PO PRN (20:44)
[2018-02-03] MEDS: traZODone HCL 100 MG TABLET (FP) PO SCH (22:05)
[2018-02-03] MEDS: THIAMINE HCL 100 MG TABLET (FP) PO SCH (22:06)
[2018-02-04] MEDS: METHOCARBAMOL 500 MG TABLET PO SCH ×3 (06:04→21:48)
[2018-02-04] MEDS: PRENATAL VITAMINS W/ FOLIC ACID TABLET (FP) PO SCH (10:16)
[2018-02-04] MEDS: METHYL SALICYLATE/MENTHOL OINT 30 GM TUBE TP SCH ×2 (10:16→22:41)
[2018-02-04] MEDS: RANITIDINE HCL 150 MG TABLET (FP) PO SCH ×2 (10:16→21:47)
--- NOTE | 2018-02-04 16:44 | PN ---
[facility] Progress Note Note: Psychiatry Attending's note : Seroquel 50 mg po hs. Added to the regimen. At patient's request. Mr Guerrero is already known to board writer. See my note of 01/28/18 for details. Was on seroquel 50 mg/hs Prior to transfer to [facility]. Belsomra 10 mg po hs prn. Renewed.
[2018-02-04] MEDS: ACETAMINOPHEN 325 MG TABLET (FP) PO PRN (17:48)
[2018-02-04] MEDS: traZODone HCL 100 MG TABLET (FP) PO SCH (21:47)
[2018-02-04] MEDS: THIAMINE HCL 100 MG TABLET (FP) PO SCH (21:47)
[2018-02-04] MEDS: QUEtiapine FUMARATE 50 MG TABLET PO SCH (21:47)
[2018-02-04] MEDS: IBUPROFEN 600 MG TABLET (FP) PO PRN (21:48)
[2018-02-04] MEDS ORDERED: SUVOREXANT 10 MG TABLET PO PRN (22:00)
[2018-02-05] MEDS: METHOCARBAMOL 500 MG TABLET PO SCH ×3 (06:10→21:22)
[2018-02-05] MEDS: RANITIDINE HCL 150 MG TABLET (FP) PO SCH ×2 (10:01→21:20)
[2018-02-05] MEDS: METHYL SALICYLATE/MENTHOL OINT 30 GM TUBE TP SCH ×2 (10:01→21:22)
[2018-02-05] MEDS: PRENATAL VITAMINS W/ FOLIC ACID TABLET (FP) PO SCH (10:01)
[2018-02-05] MEDS: THIAMINE HCL 100 MG TABLET (FP) PO SCH (21:19)
[2018-02-05] MEDS: QUEtiapine FUMARATE 50 MG TABLET PO SCH (21:20)
[2018-02-05] MEDS: traZODone HCL 100 MG TABLET (FP) PO SCH (21:20)
[2018-02-05] MEDS: IBUPROFEN 600 MG TABLET (FP) PO PRN (21:21)
[2018-02-06] MEDS: METHOCARBAMOL 500 MG TABLET PO SCH (07:11)
[2018-02-06 07:29] VITALS: BP 121/80; PULSE 85; TEMP 97.6
--- NOTE | 2018-02-06 08:32 | PN ---
Psychiatric Progress Note Vital Signs: Vital Signs Period Temp Pulse Resp BP Sys/Sheehan Pulse Ox Last 24 Hr 97.6 F 85 18-18 121/80 Date of Session: 02/06/18 Chief Complaint:: Discharge visit HPI: Patient addressed Opioid ,cannabis dependence,Anxiolytic abuse/dependence comorid with Substance induced sleep disoder. ROS: GERD,Low back pain,heprlipidemia,obesity. Current Medications: Active Medications Generic Name Dose Route Start Last Admin Trade Name Freq PRN Reason Stop Dose Admin Acetaminophen 650 mg 01/31/18 12:19 02/04/18 17:48 Tylenol - PO 650 mg Q4H PRN Administration FEVER Al Hydroxide/Mg Hydroxide 30 ml 01/31/18 12:19 Mylanta Oral Suspension - PO Q6H PRN DYSPEPSIA Eucalyptus/Menthol/Phenol/Sorbitol 1 each 01/31/18 12:19 Cepastat Lozenge - MM Q4H PRN SORE THROAT Guaifenesin 10 ml 01/31/18 12:19 Robitussin Dm - PO Q6H PRN COUGH Hydroxyzine Pamoate 50 mg 01/31/18 12:19 Vistaril - PO Q4H PRN AGITATION Ibuprofen 600 mg 02/03/18 13:49 02/05/18 21:21 Motrin - PO 600 mg Q6H PRN Administration PAIN LEVEL 6-10 Loperamide HCl 4 mg 01/31/18 12:19 Imodium - PO Q6H PRN DIARRHEA Magnesium Citrate 300 ml 01/31/18 12:19 Citroma - PO Q48H PRN CONSTIPATION Magnesium Hydroxide 30 ml 01/31/18 12:19 Milk Of Magnesia - PO DAILY PRN CONSTIPATION Methocarbamol 500 mg 02/03/18 14:00 02/06/18 07:11 Robaxin - PO Not Given TID SUZAN Methyl Salicylate 1 applic 02/02/18 16:16 02/05/18 21:22 Junaid-Rosales - TP Not Given BID SUZAN Multivit/Folic Acid/Iron 1 tab 02/01/18 10:00 02/05/18 10:01 Vitamins (Sjr) - PO 1 tab DAILY SUZAN Administration Pseudoephedrine/Triprolidine 1 combo 01/31/18 12:19 02/03/18 20:45 Actifed - PO 1 combo TID PRN Administration NASAL CONGESTION Quetiapine Fumarate 50 mg 02/04/18 22:00 02/05/18 21:20 Seroquel - PO 50 mg HS SUZAN Administration Ranitidine HCl 150 mg 01/31/18 22:00 02/05/18 21:20 Zantac - PO 150 mg BID SUZAN Administration Suvorexant 10 mg 02/04/18 22:00 Belsomra PO HS PRN INSOMNIA Thiamine HCl 100 mg 01/31/18 22:00 02/05/18 21:19 Vitamin B1 - PO 100 mg HS SUZAN Administration Trazodone HCl 100 mg 01/31/18 22:00 02/05/18 21:20 Desyrel - PO 100 mg HS SUZAN Administration Current Side Effect: No Lab tests ordered: No Lab tests reviewed: Yes Provider note:: Patient decided to sign out today despita our strong recommendations to continue treatmment.He didint meet his treatment goals and will continue to address his issues on outpatient basis at local NA meetings. Patient will continue to take his medications as per plan. Scriots for 30 daysz provided. Supportive therapy provided focusing on relapse prevention. Total face to face time:: 20 Mental Status Exam - Mental Status Exam Alert and Oriented to: Time, Place, Person Cognitive Function: Grossly Intact Patient Appearance: Well Groomed Mood: Euthymic Affect: Mood Congruent, Euthymic Patient Behavior: Cooperative Speech Pattern: Clear Voice Loudness: Normal Thought Process: Goal Oriented Hallucinations: Denies Suicidal Ideation: Denies Homicidal Ideation: Denies Insight/Judgement: Impaired Sleep: Fair Appetite: Good Muscle strength/Tone: Normal Gait/Station: Normal Psychiatric Treatment Plan - Problem List (1) Dyslipidemia Current Visit: Yes (2) Opioid dependence with withdrawal Current Visit: Yes (3) Chronic back pain Current Visit: Yes Qualifiers: Back pain location: low back pain Back pain laterality: left Sciatica presence: with sciatica Sciatica laterality: sciatica of left side Qualified Code(s): M54.42 - Lumbago with sciatica, left side; G89.29 - Other chronic pain (4) GERD (gastroesophageal reflux disease) Current Visit: Yes Qualifiers: Esophagitis presence: without esophagitis Qualified Code(s): K21.9 - Gastro -esophageal reflux disease without esophagitis (5) Substance-induced sleep disorder Current Visit: Yes (6) Obesity Current Visit: Yes Qualifiers: Obesity type: due to excess calories Obesity classification: adult class 2 (BMI 35 - 39.9) Serious obesity comorbidity presence: without serious comorbidity Body mass index: BMI 36.0-36.9 Qualified Code(s): E66.09 - Other obesity due to excess calories; Z68.36 - Body mass index (BMI) 36.0-36.9, adult (7) Opioid-induced mood disorder Current Visit: Yes (8) Benzodiazepine abuse Current Visit: Yes
== END 2018-02-06 08:45 | disposition left against medical advice (07) | DRG 770 ==
LOC: YASAS 11:39 → Y3W 11:40
PROVIDERS: ADMIT Psychiatry & Neurology Psychiatry; ATTEND Psychiatry & Neurology Psychiatry
PROC: HZ42ZZZ Group Counseling for Substance Abuse Treatment, Cognitive-Behavioral (ICD-10-PCS; principal; 2018-01-31)
DX: F11.20 Opioid dependence, uncomplicated (principal); F13.20 Sedative, hypnotic or anxiolytic dependence, uncomplicated; F12.20 Cannabis dependence, uncomplicated; F19.282 Other psychoactive substance dependence with psychoactive substance-induced sleep disorder; F19.24 Other psychoactive substance dependence with psychoactive substance-induced mood disorder; E78.5 Hyperlipidemia, unspecified; K21.9 Gastro-esophageal reflux disease without esophagitis; M79.18 Myalgia, other site; M25.561 Pain in right knee; M25.562 Pain in left knee; M54.42 Lumbago with sciatica, left side; E66.9 Obesity, unspecified; Z68.37 Body mass index [BMI] 37.0-37.9, adult
CPT/HCPCS: J0735

== ENCOUNTER 2018-06-19 20:29 | Inpatient (IN) | payer OTHER ==
[2018-06-19 22:54] VITALS: BMI 36.6
--- NOTE | 2018-06-19 23:30 | HP ---
COWS - Scale Resting Pulse: 2= [place] 101-120 Sweatin= Beads of Sweat on Face Restless Observation: 3= Extraneous Movement Pupil Size: 1= Pupils >than Normal Bone or Joint Aches: 2= Severe Diffuse Aches Runny Nose/ Eye Tearin= Constantly Teary/Runny GI Upset > 30mins: 3= Vomiting/Diarrhea Tremor Observation: 4= Gross Tremor/Twitching Yawning Observation: 0= None Anxiety or Irritability: 4=Extreme Anxiety Goose Flesh Skin: 0=Smooth Skin COWS Score: 26 CIWA Score Nausea/Vomitin Muscle Tremors: 5 Anxiety: 4-Mod. Anxious/Guarded Agitation: 4-Moderately Restless Paroxysmal Sweats: 4-Forehead w/Sweat Beads Orientation: 0-Oriented Tacttile Disturbances: 2-Mild Itch/Numbness/Burn Auditory Disturbances: 3-Moderate Harsh/Frighten Visual Disturbances: 2-Mild Sensitivity Headache: 2-Mild CIWA-Ar Total Score: 29 - Admission Criteria OASAS Guidelines: Admission for Medically Managed Detox: Requires at least one of the followin. CIWA greater than 12 2. Seizures within the past 24 hours 3. Delirium tremens within the past 24 hours 4. Hallucinations within the past 24 hours 5. Acute intervention needed for co occurring medical disorder 6. Acute intervention needed for co occurring psychiatric disorder 7. Severe withdrawal that cannot be handled at a lower level of care (continued vomiting, continued diarrhea, abnormal vital signs) requiring intravenous medication and/or fluids 8. Admission ROS BHS - HPI Chief Complaint: DEPENDENT ON HEROIN AND ETOH Allergies/Adverse Reactions: Allergies Allergy/AdvReac Type Severity Reaction Status Date / Time No Known Allergies Allergy Verified 06/19/18 22:37 History of Present Illness: THE PT. IS REQUESTING ADMISSION TO THE DETOX UNIT AND CAME FOR MEDICAL CLEARANCE AND H AND PE Exam Limitations: No Limitations - Ebola screening Have you traveled outside of the country in the last 21 days: No (N) Have you had contact with anyone from an Ebola affected area: No Have you been sick,other than usual withdrawal symptoms: No Do you have a fever: No - Review of Systems Constitutional: See HPI, Malaise, Night Sweats, Weakness EENT: reports: See HPI Respiratory: reports: See HPI Cardiac: reports: See HPI GI: reports: See HPI, Diarrhea, Nausea, Vomiting, Abdominal cramping : reports: See HPI Musculoskeletal: reports: See HPI, Muscle Pain, Muscle Weakness Integumentary: reports: See HPI, Flushing, Sweating Neuro: reports: See HPI, Headache, Tremors, Weakness Endocrine: reports: See HPI Hematology: reports: See HPI Psychiatric: reports: Judgement Intact, Orientated x3, Agitated, Anxious, Depressed Other Systems: Reviewed and Negative Patient History - Patient Medical History Hx Anemia: No Hx Asthma: No Hx Chronic Obstructive Pulmonary Disease (COPD): No Hx Cancer: No Hx Cardiac Disorders: No Hx Congestive Heart Failure: No Hx Hypertension: Yes Hx Hypercholesterolemia: No Hx Pacemaker: No HX Cerebrovascular Accident: No Hx Seizures: No Hx Dementia: No Hx Diabetes: No Hx Gastrointestinal Disorders: Yes (GERD) Hx Liver Disease: No Hx Genitourinary Disorders: No Hx Sexually Transmitted Disorders: No Hx Renal Disease (ESRD): No Hx Thyroid Disease: No Hx Human Immunodeficiency Virus (HIV): No (NEVER TESTED) Hx Hepatitis C: No Hx Depression: Yes (and anxiety) Hx Suicide Attempt: No Hx Bipolar Disorder: No Hx Schizophrenia: No Other Medical History: MORBID OBESITY; INSOMINIA - Patient Surgical History Past Surgical History: No Hx Neurologic Surgery: No Hx Cataract Extraction: No Hx Cardiac Surgery: No Hx Lung Surgery: No Hx Breast Surgery: No Hx Breast Biopsy: No Hx Abdominal Surgery: No Hx Appendectomy: No Hx Cholecystectomy: No Hx Genitourinary Surgery: No Hx Section: No Hx Orthopedic Surgery: No Anesthesia Reaction: No - PPD History Date: 06/22/17 Results: 0 mm - Smoking Cessation Smoking history: Never smoked Have you smoked in the past 12 months: No Aproximately how many cigarettes per day: 0 Cigars Per Day: 0 Hx Chewing Tobacco Use: No - Substance & Tx. History Hx Alcohol Use: Yes Hx Substance Use: Yes Substance Use Type: Alcohol, Heroin Hx Substance Use Treatment: Yes - Substances abused Heroin Substance route: Inhalation Frequency: Daily Amount used: 8 bags Age of first use: 17 Date of last use: 06/19/18 Alcohol Substance route: Oral Frequency: Daily Amount used: 1-2 pints of liquor Age of first use: 17 Date of last use: 06/19/18 Family Disease History - Family Disease History Family Disease History: Diabetes: Brother (two - living ), Heart Disease: Brother, CA: Father (lymphoma/), Mother (breast/), Other: Brother Admission Physical Exam BHS - Vital Signs Vital Signs: Vital Signs - 24 hr 06/19/18 22:42 Temperature 97.6 F Pulse Rate 110 H Respiratory 16 Rate Blood Pressure 123/105 H - Physical General Appearance: Yes: No Apparent Distress, Nourished, Appropriately Dressed , Obese, Tremorous, Irritable, Sweating, Anxious HEENTM: Yes: Hearing grossly Normal, Normal Voice, ADALBERTO, Pharynx Normal Respiratory: Yes: Chest Non-Tender, Lungs Clear, Normal Breath Sounds, No Respiratory Distress, No Accessory Muscle Use Neck: Yes: No masses,lesions,Nodules, Supple, Trachea in good position Breast: Yes: Breast Exam Deferred, Axillae without masses Cardiology: Yes: Regular Rhythm, S1, S2, Tachycardia Abdominal: Yes: Normal Bowel Sounds, Non Tender, Soft, Protuberent, Distended Back: Yes: Normal Inspection Musculoskeletal: Yes: full range of Motion, Pelvis Stable, Muscle Pain, Muscle weakness Extremities: Yes: Normal Capillary Refill, Normal Range of Motion, Non-Tender, Tremors 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: Yes: compensation specialist II-XII NML intact, Fully Oriented, Alert, Motor Strength 5/5, Depressed Affect Integumentary: Yes: Normal Color, Warm, Moist Lymphatic: Yes: Within Normal Limits - Addiitonal Findings: ECCHYMOTIC AREAS ON UPPER LIMBS++ - Diagnostic (1) Insomnia Current Visit: No Status: Chronic (2) Opioid dependence Current Visit: No Status: Chronic Qualifiers: Substance use status: uncomplicated Qualified Code(s): F11.20 - Opioid dependence, uncomplicated (3) GERD (gastroesophageal reflux disease) Current Visit: No Status: Chronic Qualifiers: Esophagitis presence: without esophagitis Qualified Code(s): K21.9 - Gastro -esophageal reflux disease without esophagitis (4) Obesity Current Visit: No Status: Chronic Qualifiers: Obesity type: due to excess calories Obesity classification: adult class 2 (BMI 35 - 39.9) Serious obesity comorbidity presence: without serious comorbidity Body mass index: BMI 36.0-36.9 Qualified Code(s): E66.09 - Other obesity due to excess calories; Z68.36 - Body mass index (BMI) 36.0-36.9, adult (5) Opioid dependence with withdrawal Current Visit: No Status: Chronic (6) EtOH dependence Current Visit: Yes Status: Chronic Qualifiers: Complication of substance-induced condition: uncomplicated Cleared for Admission S - Detox or Rehab [facility] Level of Care: Medically Managed Detox Regimen/Protocol: Methadone/Valium Inpatient Rehab Admission - Rehab Decision to Admit Inpatient rehab admission?: No
[2018-06-19] MEDS ORDERED: MENTHOL/PHENOL 1 EACH UD MM PRN (23:34)
[2018-06-19] MEDS ORDERED: ACETAMINOPHEN 325 MG TABLET (FP) PO PRN ×2 (23:34)
[2018-06-19] MEDS ORDERED: BISMUTH SUBSALICYLATE 524 MG/30 ML UD PO PRN (23:34)
[2018-06-19] MEDS ORDERED: cloNIDine HCL 0.1 MG TABLET PO PRN (23:34)
[2018-06-19] MEDS ORDERED: METHOCARBAMOL 500 MG TABLET PO PRN (23:34)
[2018-06-19] MEDS ORDERED: MAGNESIUM HYDROX 2400MG/30ML ORAL SUSPENSION 30 ML CUP PO PRN (23:34)
[2018-06-19] MEDS ORDERED: hydrOXYzine PAMOATE 25 MG CAPSULE (FP) PO PRN (23:34)
[2018-06-19] MEDS ORDERED: MAGNESIUM CITRATE 300 ML BOTTLE PO PRN (23:34)
[2018-06-19] MEDS ORDERED: IBUPROFEN 400 MG TABLET (FP) PO PRN (23:34)
[2018-06-19] MEDS ORDERED: METHADONE HCL 10 MG TABLET (FOR DETOX USE ONLY) PO ONE (23:45)
[2018-06-20] MEDS: diazePAM 5 MG TABLET PO PRN ×3 (01:09→17:30)
[2018-06-20] MEDS: diazePAM 5 MG TABLET PO SCH ×4 (01:10→22:32)
[2018-06-20] MEDS: MAG HYDROX/AL HYDROX/SIMETH 30 ML UNIT-DOSE CUP PO PRN (06:42)
[2018-06-20] MEDS ORDERED: METHADONE HCL 5 MG TABLET (FOR DETOX USE ONLY) PO ONE (10:00)
[2018-06-20] MEDS: metoPROLOL SUCCINATE 25 MG TAB.SR.24H (FP) PO SCH (10:03)
[2018-06-20] MEDS: PRENATAL VITAMINS W/ FOLIC ACID TABLET (FP) PO SCH (10:03)
--- NOTE | 2018-06-20 10:05 | PN ---
[facility] CIWA - CIWA Score Nausea/Vomitin-No Nausea/No Vomiting Muscle Tremors: 3 Anxiety: 2 Agitation: 2 Paroxysmal Sweats: 1-Minimal Palms Moist Orientation: 3-Disoriented Date>2 days Tacttile Disturbances: 0-None Auditory Disturbances: 0-None Visual Disturbances: 0-None Headache: 1-Very Mild CIWA-Ar Total Score: 12 BHS COWS - Scale Resting Pulse: 1= [place] 81-100 Sweatin= No chills or Flushing Restless Observation: 0= Sits Still Pupil Size: 0= Normal to Room Light Bone or Joint Aches: 1= Mild Discomfort Runny Nose/ Eye Tearin= Nasal Congestion GI Upset > 30mins: 1= Stomach Cramp Tremor Observation of Outstretched Hands: 2= Slight Tremor Visible Yawning Observation: 2= >3x During Session Anxiety or Irritability: 2=Irritable/Anxious Goose Flesh Skin: 0=Smooth Skin COWS Score: 10 S Progress Note (SOAP) Subjective: reporting overdose on 06/17/18 treated at ER detox with methadone and benzo patient came to [facility] for alcohol and methadone detox patient demands higher methadone dosage and stay longer for methadone encourage the patient to go to medication assisted maintenance treatment program Objective: 06/20/18 10:25 Vital Signs Temperature 96.0 F L 06/20/18 09:16 Pulse Rate 84 06/20/18 09:16 Respiratory Rate 18 06/20/18 09:16 Blood Pressure 116/80 06/20/18 09:16 O2 Sat by Pulse Oximetry (%) lab pending the ER doctor told me that my kidney is not so good I am worry about my kidney discuss alcohol and opiate related kidney insults Assessment: 06/20/18 10:26 alcohol and methadone withdrawal sx Plan: continue detox
[2018-06-20 10:40] LABS: HEMATOCRIT 44.8 % (35.4-49); MCHC 33.6 g/dl (32.0-35.9); MEAN CELL VOLUME 89.5 fl (80-96); MEAN PLT VOLUME 8.4 fl (7.5-11.1); PLATELET COUNT 283 K/MM3 (134-434); RBC 5.01 M/mm3 (4.00-5.60); RDW 14.3 % (11.9-15.9); WHITE BLOOD COUNT 28.3 K/mm3 (4.0-10.0)
[2018-06-20 10:47] LABS: ALBUMIN 4.1 g/dl (3.4-5.0); ALK PHOS 66 U/L (45-117); ANION GAP 12 MMOL/L (8-16); BILIRUBIN,TOTAL 1.1 mg/dL (0.2-1); BLOOD UREA NITROGEN 30 mg/dL (7-18); CALCIUM 8.5 mg/dL (8.5-10.1); CHLORIDE 96 mmol/L (98-107); CO2 27 mmol/L (21-32); CREATININE 2.8 mg/dL (0.55-1.3); GLUCOSE,RANDOM 72 mg/dL (74-106); POTASSIUM 3.7 mmol/L (3.5-5.1); SGOT/AST 18 U/L (15-37); SGPT/ALT 24 U/L (13-61); SODIUM 135 mmol/L (136-145); TOT PROT 7.8 g/dl (6.4-8.2)
[2018-06-20] MEDS ORDERED: hydrOXYzine HCL 25 MG TABLET (FP) PO PRN (18:55)
[2018-06-20] MEDS: THIAMINE HCL 100 MG TABLET (FP) PO SCH (22:32)
[2018-06-20] MEDS: MELATONIN 5 MG TABLETS PO PRN (22:33)
[2018-06-21] MEDS: diazePAM 5 MG TABLET PO PRN ×2 (08:41→17:25)
[2018-06-21] MEDS ORDERED: METHADONE HCL 10 MG TABLET (FOR DETOX USE ONLY) PO ONE (10:00)
[2018-06-21] MEDS: PRENATAL VITAMINS W/ FOLIC ACID TABLET (FP) PO SCH (10:30)
[2018-06-21] MEDS: metoPROLOL SUCCINATE 25 MG TAB.SR.24H (FP) PO SCH (10:30)
[2018-06-21] MEDS: diazePAM 5 MG TABLET PO SCH ×2 (10:31→22:35)
[2018-06-21 10:33] LABS: BASO % 1.1 % (0-2.0); EOS % 5.7 % (0-4.5); HEMATOCRIT 41.7 % (35.4-49); HEMOGLOBIN 14.1 GM/dL (11.7-16.9); LYMPH % 24.8 % (8-40); MCHC 33.8 g/dl (32.0-35.9); MEAN CELL VOLUME 88.7 fl (80-96); MEAN PLT VOLUME 8.5 fl (7.5-11.1); MONO % 9.2 % (3.8-10.2); NEUT % 59.2 % (42.8-82.8); PLATELET COUNT 247 K/MM3 (134-434); RDW 14.1 % (11.9-15.9); WHITE BLOOD COUNT 12.5 K/mm3 (4.0-10.0)
--- NOTE | 2018-06-21 11:44 | PN ---
S CIWA - CIWA Score Nausea/Vomitin-Mild Nausea/No Vomiting Muscle Tremors: 2 Anxiety: 1-Mildly Anxious Agitation: 1-Slight > Activity Paroxysmal Sweats: 1-Minimal Palms Moist Orientation: 0-Oriented Tacttile Disturbances: 0-None Auditory Disturbances: 0-None Visual Disturbances: 0-None Headache: 1-Very Mild CIWA-Ar Total Score: 7 BHS COWS - Scale Resting Pulse: 0= [place] 80 or Below Sweatin= Chills/Flushing Restless Observation: 0= Sits Still Pupil Size: 0= Normal to Room Light Bone or Joint Aches: 1= Mild Discomfort Runny Nose/ Eye Tearin= Nasal Congestion GI Upset > 30mins: 1= Stomach Cramp Tremor Observation of Outstretched Hands: 1= Tremor [place], Not Seen Yawning Observation: 0= None Anxiety or Irritability: 1=Feels Anxious/Irritable Goose Flesh Skin: 0=Smooth Skin COWS Score: 6 BHS Progress Note (SOAP) Subjective: feeling anxious about discharge tomorrow patient is worry about his kidney function that few months ago doctor told him "not fully function" discuss healthy lifestyle and risks of alcohol and opiate misuse Objective: 06/21/18 11:44 Vital Signs Temperature 96.9 F L 06/21/18 09:13 Pulse Rate 78 06/21/18 09:13 Respiratory Rate 18 06/21/18 09:13 Blood Pressure 132/84 06/21/18 09:13 O2 Sat by Pulse Oximetry (%) Laboratory Last Values WBC 12.5 K/mm3 (4.0-10.0) H 06/21/18 07:00 RBC 4.70 M/mm3 (4.00-5.60) 06/21/18 07:00 Hgb 14.1 GM/dL (11.7-16.9) 06/21/18 07:00 Hct 41.7 % (35.4-49) 06/21/18 07:00 MCV 88.7 fl (80-96) 06/21/18 07:00 MCH 30.0 pg (25.7-33.7) 06/21/18 07:00 MCHC 33.8 g/dl (32.0-35.9) 06/21/18 07:00 RDW 14.1 % (11.9-15.9) 06/21/18 07:00 Plt Count 247 K/MM3 (134-434) 06/21/18 07:00 MPV 8.5 fl (7.5-11.1) 06/21/18 07:00 Absolute Neuts (auto) 7.4 K/mm3 (1.5-8.0) 06/21/18 07:00 Neutrophils % 59.2 % (42.8-82.8) 06/21/18 07:00 Lymphocytes % 24.8 % (8-40) D 06/21/18 07:00 Monocytes % 9.2 % (3.8-10.2) 06/21/18 07:00 Eosinophils % 5.7 % (0-4.5) H 06/21/18 07:00 Basophils % 1.1 % (0-2.0) 06/21/18 07:00 Nucleated RBC % 0 % (0-0) 06/21/18 07:00 Sodium 135 mmol/L (136-145) L 06/20/18 07:00 Potassium 3.7 mmol/L (3.5-5.1) 06/20/18 07:00 Chloride 96 mmol/L (98-107) L 06/20/18 07:00 Carbon Dioxide 27 mmol/L (21-32) 06/20/18 07:00 Anion Gap 12 MMOL/L (8-16) 06/20/18 07:00 BUN 30 mg/dL (7-18) H 06/20/18 07:00 Creatinine 2.8 mg/dL (0.55-1.3) H 06/20/18 07:00 Creat Clearance w eGFR 23.73 (>60) 06/20/18 07:00 Random Glucose 72 mg/dL (74-106) L 06/20/18 07:00 Calcium 8.5 mg/dL (8.5-10.1) 06/20/18 07:00 Total Bilirubin 1.1 mg/dL (0.2-1) H 06/20/18 07:00 AST 18 U/L (15-37) 06/20/18 07:00 ALT 24 U/L (13-61) 06/20/18 07:00 Alkaline Phosphatase 66 U/L (45-117) 06/20/18 07:00 Total Protein 7.8 g/dl (6.4-8.2) 06/20/18 07:00 Albumin 4.1 g/dl (3.4-5.0) 06/20/18 07:00 RPR Titer Nonreactive (NONREACTIVE) 06/20/18 07:00 lab noted strong recommend the patient to bring in lab report to follow up appointment 06/21/18 11:47 Assessment: 06/21/18 11:48 alcohol and opiate withdrawal sx patient has narcan kits at home Plan: continue detox
[2018-06-21 21:58] VITALS: PULSE 72
[2018-06-21] MEDS: MELATONIN 5 MG TABLETS PO PRN (22:35)
[2018-06-21] MEDS: THIAMINE HCL 100 MG TABLET (FP) PO SCH (22:35)
[2018-06-21] MEDS: MAG HYDROX/AL HYDROX/SIMETH 30 ML UNIT-DOSE CUP PO PRN (22:36)
[2018-06-22] MEDS ORDERED: diazePAM 5 MG TABLET PO SCH (06:00)
[2018-06-22] MEDS ORDERED: METHADONE HCL 5 MG TABLET (FOR DETOX USE ONLY) PO ONE (06:00)
[2018-06-22 06:37] VITALS: BP 141/93; TEMP 96.9
[2018-06-22] MEDS: MAG HYDROX/AL HYDROX/SIMETH 30 ML UNIT-DOSE CUP PO PRN (09:31)
--- NOTE | 2018-06-22 16:18 | DS ---
[facility] Detox Discharge Summary Admission Date: 06/19/18 Discharge Date: 06/22/18 - History Present History: Alcohol Dependence, Opioid Dependence Additional Comments: 53 years old male admitted on 06/19/18 on 06/19/18 completed detox regimen [facility] - Physical Exam Results Vital Signs: Vital Signs Temperature 96.9 F L 06/22/18 06:36 Pulse Rate 72 06/22/18 06:36 Respiratory Rate 18 06/22/18 06:36 Blood Pressure 141/93 06/22/18 06:36 O2 Sat by Pulse Oximetry (%) Pertinent Admission Physical Exam Findings: alcohol and opiate withdrawal sx Laboratory Last Values WBC 12.5 K/mm3 (4.0-10.0) H 06/21/18 07:00 RBC 4.70 M/mm3 (4.00-5.60) 06/21/18 07:00 Hgb 14.1 GM/dL (11.7-16.9) 06/21/18 07:00 Hct 41.7 % (35.4-49) 06/21/18 07:00 MCV 88.7 fl (80-96) 06/21/18 07:00 MCH 30.0 pg (25.7-33.7) 06/21/18 07:00 MCHC 33.8 g/dl (32.0-35.9) 06/21/18 07:00 RDW 14.1 % (11.9-15.9) 06/21/18 07:00 Plt Count 247 K/MM3 (134-434) 06/21/18 07:00 MPV 8.5 fl (7.5-11.1) 06/21/18 07:00 Absolute Neuts (auto) 7.4 K/mm3 (1.5-8.0) 06/21/18 07:00 Neutrophils % 59.2 % (42.8-82.8) 06/21/18 07:00 Lymphocytes % 24.8 % (8-40) D 06/21/18 07:00 Monocytes % 9.2 % (3.8-10.2) 06/21/18 07:00 Eosinophils % 5.7 % (0-4.5) H 06/21/18 07:00 Basophils % 1.1 % (0-2.0) 06/21/18 07:00 Nucleated RBC % 0 % (0-0) 06/21/18 07:00 Sodium 135 mmol/L (136-145) L 06/20/18 07:00 Potassium 3.7 mmol/L (3.5-5.1) 06/20/18 07:00 Chloride 96 mmol/L (98-107) L 06/20/18 07:00 Carbon Dioxide 27 mmol/L (21-32) 06/20/18 07:00 Anion Gap 12 MMOL/L (8-16) 06/20/18 07:00 BUN 30 mg/dL (7-18) H 06/20/18 07:00 Creatinine 2.8 mg/dL (0.55-1.3) H 06/20/18 07:00 Creat Clearance w eGFR 23.73 (>60) 06/20/18 07:00 Random Glucose 72 mg/dL (74-106) L 06/20/18 07:00 Calcium 8.5 mg/dL (8.5-10.1) 06/20/18 07:00 Total Bilirubin 1.1 mg/dL (0.2-1) H 06/20/18 07:00 AST 18 U/L (15-37) 06/20/18 07:00 ALT 24 U/L (13-61) 06/20/18 07:00 Alkaline Phosphatase 66 U/L (45-117) 06/20/18 07:00 Total Protein 7.8 g/dl (6.4-8.2) 06/20/18 07:00 Albumin 4.1 g/dl (3.4-5.0) 06/20/18 07:00 RPR Titer Nonreactive (NONREACTIVE) 06/20/18 07:00 lab noted - Treatment Hospital Course: Detox Protocol Followed, Detoxed Safely, Responded well, Discharged Condition Good, Rehab Referral Accepted Patient has Accepted a Rehab Referral to: wellness center - Medication Discharge Medications: Ambulatory Orders traZODone HCL [Desyrel -] 100 mg PO HS 11/18/17 Quetiapine Fumarate [Seroquel -] 50 mg PO HS 01/27/18 Diazepam [Valium] 5 mg PO HS 06/19/18 Metoprolol Succinate [Toprol Xl] 25 mg PO DAILY 06/19/18 - Diagnosis (1) Opioid-induced mood disorder Status: Acute (2) Renal insufficiency Status: Chronic (3) Substance induced mood disorder Status: Suspected (4) EtOH dependence Status: Acute Qualifiers: Complication of substance-induced condition: uncomplicated (5) GERD (gastroesophageal reflux disease) Status: Chronic Qualifiers: Esophagitis presence: without esophagitis Qualified Code(s): K21.9 - Gastro -esophageal reflux disease without esophagitis (6) Opioid dependence with withdrawal Status: Acute - AMA Did Patient Leave Against Medical Advice: No
== END 2018-06-22 09:37 | disposition home or self-care (01) | DRG 773 ==
LOC: YASAS 20:29 → Y3N 23:54
PROVIDERS: ADMIT Surgery; ATTEND Surgery
PROC: HZ2ZZZZ Detoxification Services for Substance Abuse Treatment (ICD-10-PCS; principal; 2018-06-19)
DX: F11.23 Opioid dependence with withdrawal (principal); F11.24 Opioid dependence with opioid-induced mood disorder; F10.230 Alcohol dependence with withdrawal, uncomplicated; F19.24 Other psychoactive substance dependence with psychoactive substance-induced mood disorder; I10 Essential (primary) hypertension; K21.9 Gastro-esophageal reflux disease without esophagitis; N28.9 Disorder of kidney and ureter, unspecified; G47.00 Insomnia, unspecified; R00.0 Tachycardia, unspecified; E66.01 Morbid (severe) obesity due to excess calories; Z68.36 Body mass index [BMI] 36.0-36.9, adult
CPT/HCPCS: 36415; 80053; 85025; 85027; 86593; J0735

== ENCOUNTER 2018-12-25 22:11 | Inpatient (IN) | payer OTHER ==
[2018-12-25 22:48] VITALS: BMI 36.1
--- NOTE | 2018-12-25 23:35 | HP ---
COWS - Scale Resting Pulse: 1= [place] 81-100 Sweatin=Flushed/Facial Moisture Restless Observation: 0= Sits Still Pupil Size: 0= Normal to Room Light Bone or Joint Aches: 4=Acute Joint/Muscle Pain Runny Nose/ Eye Tearin= Nasal Congestion GI Upset > 30mins: 2= Nausea/Diarrhea Tremor Observation: 0= None Yawning Observation: 0= None Anxiety or Irritability: 2=Irritable/Anxious Goose Flesh Skin: 3=[place] COWS Score: 15 CIWA Score Nausea/Vomitin-Mild Nausea/No Vomiting Muscle Tremors: None Anxiety: 4-Mod. Anxious/Guarded Agitation: 0-Normal Activity Paroxysmal Sweats: 3 (chills) Orientation: 3-Disoriented Date>2 days Tacttile Disturbances: 2-Mild Itch/Numbness/Burn Auditory Disturbances: 0-None Visual Disturbances: 2-Mild Sensitivity Headache: 0-None Present CIWA-Ar Total Score: 15 - Admission Criteria OASAS Guidelines: Admission for Medically Managed Detox: Requires at least one of the followin. CIWA greater than 12 2. Seizures within the past 24 hours 3. Delirium tremens within the past 24 hours 4. Hallucinations within the past 24 hours 5. Acute intervention needed for co occurring medical disorder 6. Acute intervention needed for co occurring psychiatric disorder 7. Severe withdrawal that cannot be handled at a lower level of care (continued vomiting, continued diarrhea, abnormal vital signs) requiring intravenous medication and/or fluids 8. Patient presents the following: CIWA greater than 12, Acute intervention needed for co-occurring med or psych disorder Admission Criteria Met: Admission criteria met Admitting History and Physical - Smoking History Smoking history: Never smoked Have you smoked in the past 12 months: No Aproximately how many cigarettes per day: 0 - Alcohol/Substance Use Hx Alcohol Use: Yes Admission ROS S - HPI Chief Complaint: c/o worsening withdrawal sx's. seeking detox Allergies/Adverse Reactions: Allergies Allergy/AdvReac Type Severity Reaction Status Date / Time No Known Allergies Allergy Verified 12/25/18 22:48 History of Present Illness: HERE FOR ALCOHOL/ HEROIN DETOX. CLIENT WAS REFERRED BY [facility] SEEKING HELP FOR WITHDRAWAL SX'S. KNOWN TO THIS PROGRAM. PRESENTS WITH C/O WORSENING WITHDRAWAL SX'S AND STATES HAVING TO USE BOTH ALCOHOL AND HEROIN TO MINIMIZE SX'S. DAILY USE OF BOTH SUBSTANCES. 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 STATES HAD ABOUT 5 EPISODE OF OVERDOSE THIS PAST YEAR. DENIES IV USE, SEIZURES. MOST RECENT CLEAN TIME 2 YEARS RELAPSING IN 2012. LIVE WITH FAMILY, UNEMPLOYED, DENIES LEGALS Exam Limitations: No Limitations - Ebola screening Have you traveled outside of the country in the last 21 days: No (N) Have you had contact with anyone from an Ebola affected area: No Do you have a fever: No - Review of Systems Constitutional: Chills, Loss of Appetite, Malaise, Night Sweats, Changes in sleep EENT: reports: Other (BUZZING OF THE EAR) Respiratory: reports: No Symptoms reported Cardiac: reports: No Symptoms Reported GI: reports: Diarrhea, Nausea, Poor Appetite, Poor Fluid Intake : reports: No Symptoms Reported Musculoskeletal: reports: Back Pain Integumentary: reports: No Symptoms Reported Neuro: reports: Tremors, Other (BLACK OUTS) Endocrine: reports: No Symptoms Reported Hematology: reports: No Symptoms Reported Psychiatric: reports: Anxious, Depressed (DENIES SI/HI) Other Systems: Reviewed and Negative Patient History - Patient Medical History Hx Anemia: No Hx Asthma: No Hx Chronic Obstructive Pulmonary Disease (COPD): No Hx Cancer: No Hx Cardiac Disorders: No Hx Congestive Heart Failure: No Hx Hypertension: Yes Hx Hypercholesterolemia: No Hx Pacemaker: No HX Cerebrovascular Accident: No Hx Seizures: No Hx Dementia: No Hx Diabetes: No Hx Gastrointestinal Disorders: No Hx Liver Disease: No Hx Genitourinary Disorders: No Hx Sexually Transmitted Disorders: No Hx Renal Disease (ESRD): No Hx Thyroid Disease: No Hx Human Immunodeficiency Virus (HIV): No Hx Hepatitis C: No Hx Depression: Yes Hx Suicide Attempt: No Hx Bipolar Disorder: No Hx Schizophrenia: No - Patient Surgical History Past Surgical History: No Hx Neurologic Surgery: No Hx Cataract Extraction: No Hx Cardiac Surgery: No Hx Lung Surgery: No Hx Breast Surgery: No Hx Breast Biopsy: No Hx Abdominal Surgery: No Hx Appendectomy: No Hx Cholecystectomy: No Hx Genitourinary Surgery: No Hx Section: No Hx Orthopedic Surgery: No Anesthesia Reaction: No - PPD History Previous Implant?: Yes Documented Results: Negative w/proof Implanted On Prior R Admission?: Yes Date: 06/22/17 Results: 0 mm PPD to be Administered?: Yes - Smoking Cessation Smoking history: Never smoked Have you smoked in the past 12 months: No Aproximately how many cigarettes per day: 0 Cigars Per Day: 0 Hx Chewing Tobacco Use: No Initiated information on smoking cessation: No - Substance & Tx. History Hx Alcohol Use: Yes Hx Substance Use: Yes Substance Use Type: Alcohol, Heroin Hx Substance Use [facility]: [facility] ([facility] - Substances abused Heroin Substance route: Inhalation Frequency: Daily Amount used: 10 bags Age of first use: 17 Date of last use: 12/25/18 Alcohol Substance route: Oral Frequency: Daily Amount used: 1-2 pints of liquor Age of first use: 15 Date of last use: 12/25/18 Admission Physical Exam BHS - Vital Signs Vital Signs: Vital Signs - 24 hr 12/25/18 12/25/18 22:38 23:23 Temperature 97.6 F 97.6 F Pulse Rate 94 H 94 H Respiratory 20 20 Rate Blood Pressure 110/72 110/72 - Physical General Appearance: Yes: Mild Distress, Anxious HEENTM: Yes: EOMI, Normocephalic, Normal Voice, ADALBERTO, Pharynx Normal Respiratory: Yes: Chest Non-Tender, Lungs Clear, Normal Breath Sounds, No Respiratory Distress, No Accessory Muscle Use Neck: Yes: No masses,lesions,Nodules, Supple, Trachea in good position Breast: Yes: Breasts Symetrical, No Discharge Cardiology: Yes: Regular Rhythm, S1, S2, Tachycardia Abdominal: Yes: Non Tender, Soft, Increased Bowel Sounds, Protuberent Genitourinary: Yes: Within Normal Limits Back: Yes: Normal Inspection Musculoskeletal: Yes: full range of Motion, Gait Steady Extremities: Yes: Normal Range of Motion, Non-Tender 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: Yes: Fully Oriented, Alert, Motor Strength 5/5 Integumentary: Yes: Dry, Warm Lymphatic: Yes: Within Normal Limits - Diagnostic (1) Alcohol dependence with withdrawal, uncomplicated Current Visit: Yes Status: Acute (2) HTN (hypertension) Current Visit: Yes Status: Chronic Qualifiers: Hypertension type: essential hypertension Qualified Code(s): I10 - Essential (primary) hypertension (3) Depressed affect Current Visit: Yes Status: Acute (4) Substance-induced sleep disorder Current Visit: Yes Status: Suspected (5) Obesity Current Visit: Yes Status: Chronic Qualifiers: Obesity type: due to excess calories Obesity classification: adult class 2 (BMI 35 - 39.9) Serious obesity comorbidity presence: without serious comorbidity Body mass index: BMI 36.0-36.9 Qualified Code(s): E66.09 - Other obesity due to excess calories; Z68.36 - Body mass index (BMI) 36.0-36.9, adult (6) Substance induced mood disorder Current Visit: Yes Status: Suspected Cleared for Admission [facility] - Detox or Rehab [facility] Level of Care: Medically Managed Detox Regimen/Protocol: Methadone/Librium Claeared for Rehab Admission: No Breathalyzer - Breathalyzer Breathalyzer: 0 POC Urine test - Test device test lot number: [id number] Expiration date: 06/11/19 Urine Drug Screen - Test Device Lot number: [id number] Expiration date: 08/11/20 - Control Is test valid?: Yes - Results Drug screen NEGATIVE: No Urine drug screen results: FEN-Fentanyl, MOP-Opiates, OXY-Oxycodone Inpatient Rehab Admission - Rehab Decision to Admit Inpatient rehab admission?: No
[2018-12-25] MEDS ORDERED: ACETAMINOPHEN 325 MG TABLET (FP) PO PRN (23:39)
[2018-12-25] MEDS ORDERED: guaiFENesin 200 MG/10 ML 10 ML UNIT-DOSE CUPS PO PRN (23:39)
[2018-12-25] MEDS ORDERED: MAGNESIUM CITRATE 300 ML BOTTLE PO PRN (23:39)
[2018-12-25] MEDS ORDERED: MENTHOL/PHENOL 1 EACH UD MM PRN (23:39)
[2018-12-25] MEDS ORDERED: MAG HYDROX/AL HYDROX/SIMETH 30 ML UNIT-DOSE CUP PO PRN (23:39)
[2018-12-25] MEDS ORDERED: IBUPROFEN 400 MG TABLET (FP) PO PRN (23:39)
[2018-12-25] MEDS ORDERED: hydrOXYzine PAMOATE 25 MG CAPSULE (FP) PO PRN (23:39)
[2018-12-25] MEDS ORDERED: P-EPHED 60MG/TRIPROLIDI 2.5MG TABLET PO PRN (23:39)
[2018-12-25] MEDS ORDERED: BISMUTH SUBSALICYLATE 524 MG/30 ML UD PO PRN (23:39)
[2018-12-25] MEDS ORDERED: MELATONIN 5 MG TABLETS PO PRN (23:39)
[2018-12-25] MEDS ORDERED: ONDANSETRON *ODT* 4 MG TABLET SL PRN (23:39)
[2018-12-25] MEDS ORDERED: DICYCLOMINE HCL 10 MG CAPSULE PO PRN (23:39)
[2018-12-25] MEDS ORDERED: MAGNESIUM HYDROX 2400MG/30ML ORAL SUSPENSION 30 ML CUP PO PRN (23:39)
[2018-12-26] MEDS ORDERED: NALOXONE HCL 0.4 MG/ML VIAL IM PRN (00:23)
[2018-12-26] MEDS ORDERED: METHADONE HCL 10 MG TABLET (FOR DETOX USE ONLY) PO ONE (00:23)
[2018-12-26] MEDS ORDERED: TUBERCULIN PPD 5 TU/0.1ML VIAL ID ONE (00:49)
[2018-12-26] MEDS: diazePAM 5 MG TABLET PO PRN ×2 (00:55→10:26)
[2018-12-26] MEDS: diazePAM 5 MG TABLET PO SCH ×3 (05:17→22:11)
[2018-12-26 09:31] LABS: HEMATOCRIT 39.6 % (35.4-49); HEMOGLOBIN 13.4 GM/dL (11.7-16.9); MCH 29.1 pg (25.7-33.7); MCHC 33.8 g/dl (32.0-35.9); MEAN CELL VOLUME 86.3 fl (80-96); MEAN PLT VOLUME 8.9 fl (7.5-11.1); PLATELET COUNT 246 K/MM3 (134-434); RBC 4.59 M/mm3 (4.00-5.60); RDW 14.2 % (11.9-15.9); WHITE BLOOD COUNT 9.6 K/mm3 (4.0-10.0)
[2018-12-26 09:46] LABS: ALBUMIN 3.6 g/dl (3.4-5.0); BILIRUBIN,TOTAL 0.6 mg/dL (0.2-1); BLOOD UREA NITROGEN 24.3 mg/dL (7-18); CALCIUM 8.2 mg/dL (8.5-10.1); POTASSIUM 3.8 mmol/L (3.5-5.1); TOT PROT 6.5 g/dl (6.4-8.2)
[2018-12-26] MEDS ORDERED: metoPROLOL SUCCINATE 25 MG TAB.SR.24H (FP) PO SCH (10:00)
[2018-12-26] MEDS ORDERED: FLU VACCINE QUAD 60 MCG/0.5 ML (MDV 19-20) IM ONE (10:00)
[2018-12-26] MEDS: METHADONE HCL 5 MG TABLET (FOR DETOX USE ONLY) PO SCH (10:26)
[2018-12-26] MEDS: PRENATAL VITAMINS W/ FOLIC ACID TABLET (FP) PO SCH (10:26)
[2018-12-26] MEDS: FLUTICASONE PROP 0.05% 16 GM NASAL SPRAY NS SCH ×2 (12:03→22:12)
[2018-12-26] MEDS: DOCUSATE SODIUM 100 MG CAPSULE (FP) PO SCH ×2 (12:05→22:10)
--- NOTE | 2018-12-26 13:12 | PN ---
[facility] CIWA - CIWA Score Nausea/Vomitin-No Nausea/No Vomiting Muscle Tremors: 2 Anxiety: 4-Mod. Anxious/Guarded Agitation: 3 Paroxysmal Sweats: No Perspiration Orientation: 0-Oriented Tacttile Disturbances: 0-None Auditory Disturbances: 0-None Visual Disturbances: 2-Mild Sensitivity Headache: 0-None Present CIWA-Ar Total Score: 11 BHS COWS - Scale Resting Pulse: 1= [place] 81-100 Sweatin= No chills or Flushing Restless Observation: 1= Difficult to Sit Still Pupil Size: 0= Normal to Room Light Bone or Joint Aches: 2= Severe Diffuse Aches Runny Nose/ Eye Tearin= Nasal Congestion GI Upset > 30mins: 0= None Tremor Observation of Outstretched Hands: 2= Slight Tremor Visible Yawning Observation: 1= 1-2x During Session Anxiety or Irritability: 2=Irritable/Anxious Goose Flesh Skin: 3=Piloerection COWS Score: 13 S Progress Note (SOAP) Subjective: Nasal Congestion, Constipation, Anxious, Sweating. Objective: PATIENT A & O X 3, OBSERVED AMBULATING ON DETOX UNIT UNASSISTED. IN NO ACUTE DISTRESS. 12/26/18 13:22 Vital Signs Temperature 96.4 F L 12/26/18 09:13 Pulse Rate 81 12/26/18 09:13 Respiratory Rate 18 12/26/18 09:13 Blood Pressure 133/80 12/26/18 09:13 O2 Sat by Pulse Oximetry (%) Laboratory Tests 12/26/18 12/26/18 12/26/18 07:50 07:50 07:50 WBC 9.6 RBC 4.59 Hgb 13.4 Hct 39.6 MCV 86.3 MCH 29.1 MCHC 33.8 RDW 14.2 Plt Count 246 MPV 8.9 Sodium 140 Potassium 3.8 Chloride 105 Carbon Dioxide 25 Anion Gap 9 BUN 24.3 H Creatinine 1.0 Est GFR (CKD-EPI)AfAm 98.46 Est GFR (CKD-EPI)NonAf 84.95 Random Glucose 103 Calcium 8.2 L Total Bilirubin 0.6 AST 21 ALT 20 Alkaline Phosphatase 55 Total Protein 6.5 Albumin 3.6 RPR Titer Nonreactive LABS NOTED. Assessment: 12/26/18 13:22 WITHDRAWAL SYMPTOMS. AZOTEMIA. Plan: CONTINUE DETOX. INCREASE DAILY PO WATER INTAKE.
[2018-12-26] MEDS: amLODIPine BESYLATE 5 MG TABLET (FP) PO SCH (15:25)
--- NOTE | 2018-12-26 17:22 | CONSULT ---
[facility] Psychiatric Consult - Data Date of interview: 12/26/18 Admission source: [facility] Identifying data: This nis one of several admissions to [facility] for this 53 y/ o male, self-referred for detoxification treatment (MIR issues : heroin, cannabis). Interviewed at [address] [place] [address]. Patient is without children, domiciled, unemployed and supported by his spouse. Mr Guerrero is a [employer] . Served years ([phone]). Was stationed in [place] prior to his discharge (reportedly honorable) in 1986. Substance Abuse History: Discussed in this session. Details are concordant with current [facility] report as follows : Smoking history: Never smoked. Have you smoked in the past 12 months: No. Aproximately how many cigarettes per day: 0. Cigars Per Day: 0. Hx Chewing Tobacco Use: No. Initiated information on smoking cessation: No. - Substance & Tx. History. Hx Alcohol Use: Yes. Hx Substance Use: Yes. Substance Use Type: Alcohol, Heroin. Hx Substance Use Treatment: Yes ([facility]). - Substances abused. Heroin. Substance route: Inhalation. Frequency: Daily. Amount used: 10 bags. Age of first use: 17. Date of last use: 12/25/18. Alcohol. Substance route: Oral. Frequency: Daily. Amount used: 1-2 pints of liquor. Age of first use: 15. Date of last use: 12/25/18 Medical History: Medical profile is remarkable for obesity, GERD and dyslipidemia. Psychiatric History: No reported history of psychiatric hospitalizations or suicide attempts. Mr Guerrero indicates that he is still under the care of a psychiatrist at the [facility] for chronic insomnia. Medicated with seroquel 50 mg/hs + mirtazapine 7.5 mg/hs. Physical/Sexual Abuse/Trauma History: No history of abuse. Additional Comment: Urine drug screen results: FEN-Fentanyl, MOP-Opiates, OXY- Oxycodone. Noted. Mental Status Exam - Mental Status Exam Alert and Oriented to: Time, Place, Person Cognitive Function: Good Patient Appearance: Well Groomed (obese) Mood: Hopeful, Euthymic Affect: Appropriate, Normal Range Patient Behavior: Fatigued, Cooperative Speech Pattern: Clear, Appropriate Voice Loudness: Normal Thought Process: Intact, Goal Oriented Thought Disorder: Not Present Hallucinations: Denies Suicidal Ideation: Denies Homicidal Ideation: Denies Insight/Judgement: Fair Sleep: Poorly, Difficulty falling asleep Appetite: Good Muscle strength/Tone: Normal Gait/Station: Normal Psychiatric Findings - Problem List ([place] 1, 2,3) (1) Opioid dependence with withdrawal Current Visit: Yes Status: Acute (2) Insomnia Current Visit: Yes Status: Chronic - Initial Treatment Plan Initial Treatment Plan: Records ([facility]) are revisited. Sleep hygiene. Detoxification. Resumed : remeron 7.5 mg po hs + seroquel 50 mg po hs. Side effects/benefits of both drugs are discussed with the patient. Mr Guerrero agrees with this plan of care. Verbal consent given to MD. Montes.
[2018-12-26] MEDS: cloNIDine HCL 0.1 MG TABLET PO PRN (22:10)
[2018-12-26] MEDS: THIAMINE HCL 100 MG TABLET (FP) PO SCH (22:10)
[2018-12-26] MEDS: QUEtiapine FUMARATE 25 MG TABLET (FP) PO SCH (22:10)
[2018-12-26] MEDS: MIRTAZAPINE 15 MG TABLET (FP) PO SCH (22:12)
[2018-12-26] MEDS: ACETAMINOPHEN 325 MG TABLET (FP) PO PRN (22:16)
[2018-12-27] MEDS: diazePAM 5 MG TABLET PO SCH ×2 (05:39→17:16)
[2018-12-27] MEDS ORDERED: METHADONE (DETOX) 20 MG, METHADONE (DETOX) 5 MG PO ONE (10:00)
[2018-12-27] MEDS ORDERED: METHADONE (DETOX) 10 MG, METHADONE (DETOX) 5 MG PO ONE (10:23)
[2018-12-27] MEDS ORDERED: METHADONE HCL 10 MG TABLET (FOR DETOX USE ONLY) PO ONE ×2 (10:23→10:52)
[2018-12-27] MEDS: METHADONE HCL 5 MG TABLET (FOR DETOX USE ONLY) PO SCH (10:59)
[2018-12-27] MEDS: amLODIPine BESYLATE 5 MG TABLET (FP) PO SCH (11:44)
[2018-12-27] MEDS: diazePAM 5 MG TABLET PO PRN ×2 (11:45→22:15)
[2018-12-27] MEDS: DOCUSATE SODIUM 100 MG CAPSULE (FP) PO SCH ×2 (11:45→22:13)
[2018-12-27] MEDS: FLUTICASONE PROP 0.05% 16 GM NASAL SPRAY NS SCH ×2 (11:45→22:15)
[2018-12-27] MEDS: PRENATAL VITAMINS W/ FOLIC ACID TABLET (FP) PO SCH (11:46)
[2018-12-27] MEDS: LIDOCAINE 5% TOPICAL PATCH TP SCH (11:48)
--- NOTE | 2018-12-27 16:52 | PN ---
[facility] CIWA - CIWA Score Nausea/Vomitin-No Nausea/No Vomiting Muscle Tremors: None Anxiety: 3 Agitation: 3 Paroxysmal Sweats: 2 Orientation: 0-Oriented Tacttile Disturbances: 2-Mild Itch/Numbness/Burn Auditory Disturbances: 0-None Visual Disturbances: 2-Mild Sensitivity Headache: 0-None Present CIWA-Ar Total Score: 12 BHS COWS - Scale Resting Pulse: 0= [place] 80 or Below Sweatin= Chills/Flushing Restless Observation: 1= Difficult to Sit Still Pupil Size: 0= Normal to Room Light Bone or Joint Aches: 2= Severe Diffuse Aches Runny Nose/ Eye Tearin= Nasal Congestion GI Upset > 30mins: 0= None Tremor Observation of Outstretched Hands: 0= None Yawning Observation: 1= 1-2x During Session Anxiety or Irritability: 2=Irritable/Anxious Goose Flesh Skin: 3=Piloerection COWS Score: 11 S Progress Note (SOAP) Subjective: Sweating, Anxious, Body Aches, Nasal Congestion. Objective: PATIENT A & O X 3, OBSERVED AMBULATING ON DETOX UNIT UNASSISTED. IN NO ACUTE DISTRESS. 12/27/18 16:52 Vital Signs Temperature 97.8 F 12/27/18 13:37 Pulse Rate 79 12/27/18 13:37 Respiratory Rate 18 12/27/18 13:37 Blood Pressure 110/77 12/27/18 13:37 O2 Sat by Pulse Oximetry (%) Laboratory Tests 12/26/18 12/26/18 12/26/18 07:50 07:50 07:50 WBC 9.6 RBC 4.59 Hgb 13.4 Hct 39.6 MCV 86.3 MCH 29.1 MCHC 33.8 RDW 14.2 Plt Count 246 MPV 8.9 Sodium 140 Potassium 3.8 Chloride 105 Carbon Dioxide 25 Anion Gap 9 BUN 24.3 H Creatinine 1.0 Est GFR (CKD-EPI)AfAm 98.46 Est GFR (CKD-EPI)NonAf 84.95 Random Glucose 103 Calcium 8.2 L Total Bilirubin 0.6 AST 21 ALT 20 Alkaline Phosphatase 55 Total Protein 6.5 Albumin 3.6 RPR Titer Nonreactive LABS NOTED. Assessment: 12/27/18 16:53 WITHDRAWAL SYMPTOMS. AZOTEMIA. Plan: CONTINUE DETOX. LIDODERM PATCH FOR LOWER BACK PAIN.
[2018-12-27] MEDS: cloNIDine HCL 0.1 MG TABLET PO PRN (22:13)
[2018-12-27] MEDS: LIDOCAINE PATCH REMOVAL MC SCH (22:14)
[2018-12-27] MEDS: MIRTAZAPINE 15 MG TABLET (FP) PO SCH (22:14)
[2018-12-27] MEDS: QUEtiapine FUMARATE 25 MG TABLET (FP) PO SCH (22:14)
[2018-12-27] MEDS: THIAMINE HCL 100 MG TABLET (FP) PO SCH (22:14)
[2018-12-28] MEDS ORDERED: diazePAM 5 MG TABLET PO ONE (06:00)
[2018-12-28] MEDS ORDERED: METHADONE HCL 10 MG TABLET (FOR DETOX USE ONLY) PO ONE (10:00)
[2018-12-28] MEDS ORDERED: METHADONE (DETOX) 10 MG, METHADONE (DETOX) 5 MG PO ONE (10:00)
[2018-12-28] MEDS ORDERED: METHADONE HCL 5 MG TABLET (FOR DETOX USE ONLY) PO ONE (10:00)
[2018-12-28] MEDS: amLODIPine BESYLATE 5 MG TABLET (FP) PO SCH (10:04)
[2018-12-28] MEDS: FLUTICASONE PROP 0.05% 16 GM NASAL SPRAY NS SCH ×2 (10:04→22:29)
[2018-12-28] MEDS: LIDOCAINE 5% TOPICAL PATCH TP SCH (10:04)
[2018-12-28] MEDS: DOCUSATE SODIUM 100 MG CAPSULE (FP) PO SCH ×2 (10:04→22:28)
[2018-12-28] MEDS: PRENATAL VITAMINS W/ FOLIC ACID TABLET (FP) PO SCH (10:04)
--- NOTE | 2018-12-28 13:07 | PN ---
[facility] CIWA - CIWA Score Nausea/Vomitin-Mild Nausea/No Vomiting Muscle Tremors: 2 Anxiety: 3 Agitation: 2 Paroxysmal Sweats: 1-Minimal Palms Moist Orientation: 0-Oriented Tacttile Disturbances: 0-None Auditory Disturbances: 0-None Visual Disturbances: 0-None Headache: 1-Very Mild CIWA-Ar Total Score: 10 BHS COWS - Scale Resting Pulse: 0= [place] 80 or Below Sweatin= Chills/Flushing Restless Observation: 0= Sits Still Pupil Size: 0= Normal to Room Light Bone or Joint Aches: 1= Mild Discomfort Runny Nose/ Eye Tearin= Nasal Congestion GI Upset > 30mins: 2= Nausea/Diarrhea (no diarrhea) Tremor Observation of Outstretched Hands: 2= Slight Tremor Visible Yawning Observation: 1= 1-2x During Session Anxiety or Irritability: 2=Irritable/Anxious Goose Flesh Skin: 0=Smooth Skin COWS Score: 10 S Progress Note (SOAP) Subjective: no diarrhea doing well with valium and methadone detox regimen report feeling less opiate withdrawal sx patient wants to be discharged 12/30/18 and willing to take methadone 10 mg tomorrow and 5 on 12/30/09 modify methadone detox regimen to meet patient preference Objective: 12/28/18 13:17 Vital Signs Temperature 99.2 F 12/28/18 13:09 Pulse Rate 76 12/28/18 13:09 Respiratory Rate 18 12/28/18 13:09 Blood Pressure 124/79 12/28/18 13:09 O2 Sat by Pulse Oximetry (%) Laboratory Last Values WBC 9.6 K/mm3 (4.0-10.0) 12/26/18 07:50 RBC 4.59 M/mm3 (4.00-5.60) 12/26/18 07:50 Hgb 13.4 GM/dL (11.7-16.9) 12/26/18 07:50 Hct 39.6 % (35.4-49) 12/26/18 07:50 MCV 86.3 fl (80-96) 12/26/18 07:50 MCH 29.1 pg (25.7-33.7) 12/26/18 07:50 MCHC 33.8 g/dl (32.0-35.9) 12/26/18 07:50 RDW 14.2 % (11.9-15.9) 12/26/18 07:50 Plt Count 246 K/MM3 (134-434) 12/26/18 07:50 MPV 8.9 fl (7.5-11.1) 12/26/18 07:50 Sodium 140 mmol/L (136-145) 12/26/18 07:50 Potassium 3.8 mmol/L (3.5-5.1) 12/26/18 07:50 Chloride 105 mmol/L (98-107) 12/26/18 07:50 Carbon Dioxide 25 mmol/L (21-32) 12/26/18 07:50 Anion Gap 9 MMOL/L (8-16) 12/26/18 07:50 BUN 24.3 mg/dL (7-18) H 12/26/18 07:50 Creatinine 1.0 mg/dL (0.55-1.3) 12/26/18 07:50 Est GFR (CKD-EPI)AfAm 98.46 12/26/18 07:50 Est GFR (CKD-EPI)NonAf 84.95 12/26/18 07:50 Random Glucose 103 mg/dL (74-106) 12/26/18 07:50 Calcium 8.2 mg/dL (8.5-10.1) L 12/26/18 07:50 Total Bilirubin 0.6 mg/dL (0.2-1) 12/26/18 07:50 AST 21 U/L (15-37) 12/26/18 07:50 ALT 20 U/L (13-61) 12/26/18 07:50 Alkaline Phosphatase 55 U/L (45-117) 12/26/18 07:50 Total Protein 6.5 g/dl (6.4-8.2) 12/26/18 07:50 Albumin 3.6 g/dl (3.4-5.0) 12/26/18 07:50 RPR Titer Nonreactive (NONREACTIVE) 12/26/18 07:50 lab noted Assessment: 12/28/18 13:17 alcohol and opiate withdrawal sx Plan: continue valium and methadone detox regimen
[2018-12-28] MEDS: diazePAM 5 MG TABLET PO PRN ×2 (17:21→22:28)
[2018-12-28] MEDS: QUEtiapine FUMARATE 25 MG TABLET (FP) PO SCH (22:28)
[2018-12-28] MEDS: THIAMINE HCL 100 MG TABLET (FP) PO SCH (22:28)
[2018-12-28] MEDS: MIRTAZAPINE 15 MG TABLET (FP) PO SCH (22:29)
[2018-12-28] MEDS: LIDOCAINE PATCH REMOVAL MC SCH (22:29)
[2018-12-29] MEDS ORDERED: METHADONE HCL 10 MG TABLET (FOR DETOX USE ONLY) PO ONE ×2 (05:00→10:00)
[2018-12-29] MEDS ORDERED: METHADONE (DETOX) 10 MG, METHADONE (DETOX) 5 MG PO ONE (10:00)
[2018-12-29] MEDS ORDERED: METHADONE HCL 5 MG TABLET (FOR DETOX USE ONLY) PO ONE (10:00)
[2018-12-29] MEDS: DOCUSATE SODIUM 100 MG CAPSULE (FP) PO SCH ×2 (10:17→22:24)
[2018-12-29] MEDS: LIDOCAINE 5% TOPICAL PATCH TP SCH (10:18)
[2018-12-29] MEDS: PRENATAL VITAMINS W/ FOLIC ACID TABLET (FP) PO SCH (10:18)
[2018-12-29] MEDS: FLUTICASONE PROP 0.05% 16 GM NASAL SPRAY NS SCH ×2 (10:18→22:27)
[2018-12-29] MEDS: amLODIPine BESYLATE 5 MG TABLET (FP) PO SCH (10:18)
--- NOTE | 2018-12-29 13:09 | PN ---
[facility] CIWA - CIWA Score Nausea/Vomitin-Mild Nausea/No Vomiting Muscle Tremors: 1-None Visible, but [place] Anxiety: 1-Mildly Anxious Agitation: 0-Normal Activity Paroxysmal Sweats: 2 Orientation: 0-Oriented Tacttile Disturbances: 1-Very Mild Itch/Numbness Auditory Disturbances: 0-None Visual Disturbances: 0-None Headache: 0-None Present CIWA-Ar Total Score: 6 S COWS - Scale Resting Pulse: 0= [place] 80 or Below Sweatin= Chills/Flushing Restless Observation: 0= Sits Still Pupil Size: 0= Normal to Room Light Bone or Joint Aches: 1= Mild Discomfort Runny Nose/ Eye Tearin= None GI Upset > 30mins: 1= Stomach Cramp Tremor Observation of Outstretched Hands: 0= None Yawning Observation: 0= None Anxiety or Irritability: 1=Feels Anxious/Irritable Goose Flesh Skin: 0=Smooth Skin COWS Score: 4 S Progress Note (SOAP) Subjective: sweats , but better Objective: 12/29/18 13:08 Vital Signs Temperature 97.1 F L 12/29/18 09:07 Pulse Rate 73 12/29/18 09:07 Respiratory Rate 18 12/29/18 09:07 Blood Pressure 129/85 12/29/18 09:07 O2 Sat by Pulse Oximetry (%) Laboratory Tests 12/26/18 12/26/18 12/26/18 07:50 07:50 07:50 WBC 9.6 RBC 4.59 Hgb 13.4 Hct 39.6 MCV 86.3 MCH 29.1 MCHC 33.8 RDW 14.2 Plt Count 246 MPV 8.9 Sodium 140 Potassium 3.8 Chloride 105 Carbon Dioxide 25 Anion Gap 9 BUN 24.3 H Creatinine 1.0 Est GFR (CKD-EPI)AfAm 98.46 Est GFR (CKD-EPI)NonAf 84.95 Random Glucose 103 Calcium 8.2 L Total Bilirubin 0.6 AST 21 ALT 20 Alkaline Phosphatase 55 Total Protein 6.5 Albumin 3.6 RPR Titer Nonreactive pt aox3 in nad ambulating Assessment: 12/29/18 13:08 withdrawal sx';s Plan: cont. detox increase fluids d/ c in am
[2018-12-29] MEDS: METHOCARBAMOL 500 MG TABLET PO PRN ×2 (16:25→22:26)
[2018-12-29] MEDS: ACETAMINOPHEN 325 MG TABLET (FP) PO PRN ×2 (16:25→22:23)
[2018-12-29] MEDS: LIDOCAINE PATCH REMOVAL MC SCH (22:22)
[2018-12-29] MEDS: THIAMINE HCL 100 MG TABLET (FP) PO SCH (22:23)
[2018-12-29] MEDS: MIRTAZAPINE 15 MG TABLET (FP) PO SCH (22:24)
[2018-12-29] MEDS: QUEtiapine FUMARATE 25 MG TABLET (FP) PO SCH (22:24)
[2018-12-30] MEDS ORDERED: METHADONE HCL 5 MG TABLET (FOR DETOX USE ONLY) PO SCH (05:00)
[2018-12-30] MEDS ORDERED: METHADONE HCL 5 MG TABLET (FOR DETOX USE ONLY) PO ONE ×2 (05:00→06:00)
[2018-12-30] MEDS: ACETAMINOPHEN 325 MG TABLET (FP) PO PRN (05:07)
--- NOTE | 2018-12-30 09:06 | DS ---
[facility] Detox Discharge Summary Admission Date: 12/26/18 Discharge Date: 12/30/18 - History Present History: Alcohol Dependence, Opioid Dependence Pertinent Past History: Pt completed alcohol and opioid detox. Pt states will go to groups-[facility]. Will f /u for primary care at the [facility]. f/u in 2 weeks. Pt has narcan kit at home. D/w methadone/suboxone MAT- pt refused. Also d/w pt campral Rx for AUD. Pt has all meds at home. - Physical Exam Results Vital Signs: Vital Signs Temperature 97.3 F L 12/30/18 06:14 Pulse Rate 71 12/30/18 06:14 Respiratory Rate 20 12/30/18 06:14 Blood Pressure 133/83 12/30/18 06:14 O2 Sat by Pulse Oximetry (%) - Treatment Hospital Course: Detox Protocol Followed, Detoxed Safely, Responded well, Discharged Condition Good - Medication Discharge Medications: Ambulatory Orders Quetiapine Fumarate [Seroquel -] 50 mg PO HS 01/27/18 Mirtazapine 7.5 mg PO HS 12/25/18 Amlodipine Besylate [Norvasc -] 5 mg PO DAILY #30 tablet 12/29/18 Amlodipine Besylate [Norvasc -] 5 mg PO DAILY 15 Days #15 tablet 12/29/18 Docusate Sodium [Colace -] 100 mg PO BID #60 capsule 12/29/18 Mirtazapine 7.5 mg PO HS #30 tablet 12/29/18 Quetiapine Fumarate [Seroquel -] 50 mg PO HS #30 tablet 12/29/18 - AMA Did Patient Leave Against Medical Advice: No
[2018-12-30 09:25] VITALS: BP 139/87; PULSE 68; TEMP 96.4
[2018-12-30] MEDS ORDERED: METHADONE HCL 10 MG TABLET (FOR DETOX USE ONLY) PO ONE ×2 (10:00)
[2018-12-31] MEDS ORDERED: METHADONE HCL 5 MG TABLET (FOR DETOX USE ONLY) PO ONE (06:00)
[2018-12-31] MEDS ORDERED: METHADONE HCL 5 MG TABLET (FOR DETOX USE ONLY) PO SCH (06:00)
== END 2018-12-30 09:13 | disposition home or self-care (01) | DRG 773 ==
LOC: YASAS 22:11 → Y3N 12-26 00:20
PROVIDERS: ADMIT Allergy & Immunology; ATTEND Allergy & Immunology
PROC: HZ2ZZZZ Detoxification Services for Substance Abuse Treatment (ICD-10-PCS; principal; 2018-12-26)
DX: F10.230 Alcohol dependence with withdrawal, uncomplicated (principal); F11.23 Opioid dependence with withdrawal; F19.282 Other psychoactive substance dependence with psychoactive substance-induced sleep disorder; F19.24 Other psychoactive substance dependence with psychoactive substance-induced mood disorder; I10 Essential (primary) hypertension; E78.5 Hyperlipidemia, unspecified; G47.00 Insomnia, unspecified; K21.9 Gastro-esophageal reflux disease without esophagitis; M54.5 Low back pain; R79.89 Other specified abnormal findings of blood chemistry; E66.09 Other obesity due to excess calories; Z68.36 Body mass index [BMI] 36.0-36.9, adult; R45.89 Other symptoms and signs involving emotional state
CPT/HCPCS: 36415; 80053; 85027; 86593; J0735; Q2036